=== PATIENT | female | born 1930 | race Caucasian/White ===

== ENCOUNTER 2017-07-10 20:51 | Inpatient (IN) ==
[2017-07-11] MEDS ORDERED: Acetaminophen 325 MG TABLET PO PRN (02:41)
[2017-07-11] MEDS ORDERED: Naloxone 0.4 MG/ML INJ IVP PRN (02:41)
--- NOTE | 2017-07-11 02:45 | Internal Med History&Physical ---
Date of Encounter: 07/11/17 Time of Encounter: 02:44 Internal Medicine - H&P: HPI Chief complaint: Anemia Admitted From: Direct Admit Plans for Post Hospital Care: Home History of present illness: Ms. Ulloa is a 86 year old female with history of hypothyroidism, hypertension, atrial fibrillation reportedly on Xarelto who presented from his found to have low hemoglobin of 5.2. The patient's previous hemoglobin was 12.4 back in May. The patient had presented to [facility] complaining of insomnia has been going on for a few days. She had no complaints of GI issues such as bleeding, abdominal pain, nausea, hematemesis, hematochezia. Upon further questioning the patient does state that she has had dark stools on and off over the last couple of months. She states that she is doing well and was actually out gardening yesterday. The patient, however, is not the best historian and I suspect the patient has some type of dementia. There is no family members at bedside at this hour. The patient tells me that she lives alone and her daughter will be here in the morning. When I asked if she takes any blood thinners she said she takes the one that starts with the an X and when I mentioned Xarelto she said "that one". She denies being on NSAIDs or aspirin. She is hemodynamically stable. She was started on 1 unit of PRBCs prior to coming here. Rest of laboratory workup showed d-dimer still elevated at 729. APTT at 41.2. No PT/INR. Per documentation the patient has had increased lower extremity swelling which improved with medications. Denies any fever, chills, nausea, vomiting, chest pain, shortness of breath, urinary symptoms, or neurological symptoms. Past Med Surg Social Fam HX - Past Medical History Medical history: arthritis, atrial fibrillation, CHF, dementia, hypertension Psychiatric history: anxiety, depression - Past Surgical History Surgical History: , hysterectomy, knee replacement, orthopedic, other, other - Social History Smoking Status: Never smoker Smokeless Tobacco Status: No Alcohol use: none Drug use: none Internal Medicine - H&P: Meds Carvedilol [Coreg] 25 mg PO BID 01/31/17 [History] HYDROcodone/Acet 5/325 mg [[place] 5-325 mg] 1 tab PO Q6H PRN 01/31/17 [History] Memantine [Namenda] 5 mg PO HS 01/31/17 [History] Nitroglycerin [Nitrostat] 0.4 mg SL Q5M PRN 01/31/17 [History] Olmesartan Medoxomil [Benicar] 40 mg PO DAILY 01/31/17 [History] Rosuvastatin Calcium [Crestor] 10 mg PO DAILY 01/31/17 [History] Sertraline [Zoloft] 12.5 mg PO DAILY 01/31/17 [History] hydrALAZINE [HydrALAZINE] 25 mg PO BID 01/31/17 [History] Calcium Carbonate [Tums] 1,000 mg PO TID tab.chew 02/04/17 [Rx] Docusate [Colace] 100 mg PO BID PRN capsule 02/04/17 [Rx] Enoxaparin [Lovenox] 30 mg SQ Q24H syringe 02/04/17 [Rx] Levothyroxine [Synthroid] 125 mcg PO DAILY@0630 tablet 02/04/17 [Rx] Valsartan [Diovan] 320 mg PO DAILY tablet 02/04/17 [Rx] 3 Allergy/AdvReac Type Severity Reaction Status Date / Time codeine Allergy Rash Verified 01/30/17 16:16 Opioids - Morphine Analogues Allergy Rash Verified 01/30/17 16:16 Sulfa (Sulfonamide Allergy Rash Verified 01/30/17 16:16 Antibiotics) All Systems PM: A 10-system review of systems was performed and is negative for pertinent findings except as documented above in the HPI. Review of systems: All systems reviewed are negative except for as mentioned above - Constitutional Vitals: Temp Pulse Resp BP Pulse Ox 98.5 F 61 18 158/76 96 07/11/17 01:14 07/11/17 01:14 07/11/17 01:14 07/11/17 01:14 07/11/17 01:14 Exam: GEN: NAD HEENT: AT, NC, No cyanosis, oral mucosa is moist, No JVD Lymphatics: No lymphadenoapthy Eyes: Extrocular muscles intact, anicteric CVS:RRR. S1, S2, No m/r/g RESP: CTAB ABD: Soft, NT, ND, +BS EXT: No edema, No rashes, 2+ DP NEURO: Nonfocal, CN II-XII intact, No focal motor or sensory deficits Psych: Cooperative, Not anxious or depressed - Assessment and plan (1) GI bleed Current Visit: Yes Status: Acute Assessment and plan: The patient describes dark stools for a couple months. She has no other symptoms. She was transfused 1 unit from [facility]. We will repeat labs now including a PT/INR and transfuse if hemoglobin is less than 7. We will make the patient nothing by mouth. GI is consulted already. Protonix drip. Patient is hemodynamically stable. Qualifiers: GI bleed type/associated pathology: melena Qualified Code(s): K92.1 - Melena (2) Anemia Current Visit: No Status: Acute Assessment and plan: Patient does not really have any symptoms of anemia. She has microcytic anemia. Reported melena. We will check iron studies and rest of plan is as above. Qualifiers: Anemia type: unspecified type Qualified Code(s): D64.9 - Anemia, unspecified (3) Elevated d-dimer Current Visit: Yes Status: Acute Assessment and plan: Reportedly the patient has lower extremity swelling. She tells me this is improved. She has mild lower ext edema. She has no respiratory symptoms. The patient is already on Xarelto. Likely elevated secondary to anemia. (4) Atrial fibrillation Current Visit: No Status: Chronic Assessment and plan: Patient is rate controlled. Reportedly on anticoagulation with Xarelto. We will hold that secondary to the suspected GI bleed. Qualifiers: Atrial fibrillation type: unspecified Qualified Code(s): I48.91 - Unspecified atrial fibrillation (5) HTN (hypertension) Current Visit: No Status: Chronic Assessment and plan: Resume home antihypertensives Qualifiers: Hypertension type: unspecified Qualified Code(s): I10 - Essential (primary ) hypertension (6) Hypothyroidism Current Visit: No Status: Chronic Assessment and plan: Resume home Synthroid medication once verified. Qualifiers: Hypothyroidism type: unspecified Qualified Code(s): E03.9 - Hypothyroidism , unspecified (7) DVT prophylaxis Current Visit: No Status: Acute Assessment and plan: SCDS - Time Spent With Patient Total time spent is greater than 50% in coordination of care (as documented) at patient's floor/unit and/or counseling patient:
[2017-07-11] MEDS ORDERED: Ondansetron 4 MG/2 ML VIAL IVP PRN (03:01)
[2017-07-11 03:47] LABS: Basophils % 0.7 %; Hemoglobin 6.4 g/dL (11.5-15.4); Immature Granulocytes % 0.3 % (0-4)
[2017-07-11 03:48] LABS: Eosinophils # 0.3 K/mcL (0.0-0.6); Eosinophils % 5.3 %; Hematocrit 22.6 % (35.3-44.9); Lymphocytes # 1.1 K/mcL (0.6-4.6); Lymphocytes % 18.8 %; Mean Corpuscular HGB Conc 28.3 g/dL (31.6-35.5); Mean Corpuscular Volume 74.1 fL (83.0-100.0); Mean Platelet Volume 12.6 fL (9.4-12.4); Monocytes # 0.7 K/mcL (0.0-1.3); Monocytes % 11.6 %; Neutrophils # 3.7 K/mcL (1.6-8.9); Platelet Count 191 K/mcL (140-400); Red Blood Count 3.05 M/mcL (3.82-4.97); Red Cell Distribution Width 18.4 % (11.5-14.5); Segmented Neutrophils % 63.3 %
[2017-07-11 03:53] LABS: INR 2.5
[2017-07-11 04:04] LABS: Platelet Estimate Normal (Normal)
[2017-07-11 04:05] LABS: Hypochromasia Present (Not Present)
[2017-07-11 04:07] LABS: Anisocytosis 1+ (Not Present)
[2017-07-11 04:14] LABS: % Iron Saturation 4 % (15-50); Ferritin 19 ng/ml (10-120); Iron 14 mcg/dL (50-170); Transferrin 282 mg/dL (203-362)
[2017-07-11 04:15] LABS: Calcium 8.5 mg/dL (8.6-10.3); Magnesium 2.3 mg/dL (1.6-2.6)
[2017-07-11] MEDS ORDERED: *HR* Phytonadione 5 MG TABLET PO ONE (04:17)
[2017-07-11 04:40] LABS: Vitamin B12 727 pg/mL (250-1100)
[2017-07-11 04:41] LABS: Folate > 22.3 ng/mL (3.0-16.0)
[2017-07-11] MEDS ORDERED: Iron Sucrose Complex 400 MG in 0.9 % Sodium Chloride 250 ML IVPB ONE (05:00)
[2017-07-11] MEDS ORDERED: Pantoprazole 40 MG VIAL IVP SCH (06:00)
[2017-07-11] MEDS: Pantoprazole 40 MG in 0.9 % Sodium Chloride Mini Bag 100 ML IVC SCH ×5 (06:21→22:02)
[2017-07-11] MEDS ORDERED: 0.9 % Sodium Chloride 500 ML ONE (11:20)
--- NOTE | 2017-07-11 12:51 | Gastroenterology Consult Note ---
Date of Encounter: 07/11/17 Time of Encounter: 11:00 - Assessment and plan (1) GI bleed Current Visit: Yes Status: Acute Assessment and plan: Patient with melena on and off since March now with severe anemia with a hemoglobin of 5.2. Patient hemoglobin was down to 6.9 in January and at that time she was transfused 2 unit of blood. Denies having any scope done in the past , currently is on xeralto also for atrial fib. Patient has received blood transfusion. currently she is refusing to have any scopes done. Talked to the patient in detail in the presence of her family including daughter, again she is not the interested in having the scope done at this point understanding the risks involved in not having the workup done such as missing a GI tract cancer. We will be happy to see her again if she changes her mind Qualifiers: GI bleed type/associated pathology: melena Qualified Code(s): K92.1 - Melena - Time Spent With Patient Total time spent is greater than 50% in coordination of care (as documented) at patient's floor/unit and/or counseling patient: GI History of Present Illness - Data of Consult Requesting Physician: Ham Collado MD - Consult Narrative Reason for consult: Anemia and melena History of present illness: Ms. Ulloa is a 86 year old female that was admitted because of severe anemia with hemoglobin of 5.2. Per patient and her daughter, the patient has not been feeling well since her hip surgery in January. After hip surgery she started having nausea vomiting after week and in March and April she was having black stool many times. Since then she is having black stool on and off. In the January her hemoglobin was 6.9 and she was then given a blood transfusion. In ER yesterdya was found to be anemic with a hemoglobin of 5.2 and has been transfused. Currently on the floor she denies any active complaints other than feeling fatigued and tired and shortness of breath. Patient has been on Xelato but other than that denies any use of alcohol or NSAID. Denies ever having any scope done in the past. Past Med Surg Social Fam HX - Past Medical History Medical history: arthritis, atrial fibrillation, CHF, dementia, hypertension Psychiatric history: anxiety, depression - Past Surgical History Surgical History: , hysterectomy, knee replacement, orthopedic, other, other - Social History Smoking Status: Never smoker Smokeless Tobacco Status: No Alcohol use: none Drug use: none Review of Systems: GI: as per [place] GENERAL: denies fever, does complain of generalized weakness EYES: denies yellow discoloration ENT: denies pain with swallowing or difficulty swallowing CARDIO: denies chest pain, palpitations RESP: Does complain of shortness of breath : denies change in color of urine NEURO: denies any weakness HEME: Denies any bruising MS: denies joint pain, joint swelling or back pain. DERM: denies rash or itching PSYCH: Denies history of anxiety or depression - Constitutional Vitals: Temp Pulse Resp BP Pulse Ox 97.6 F 63 16 176/81 98 07/11/17 12:02 07/11/17 12:02 07/11/17 12:02 07/11/17 12:02 07/11/17 12:02 CONSTITUTIONAL:~alert, no acute distress. Has oxygen by nasal cannula in place ~HEAD:~normocephalic.~EYES:~no jaundice.~NECK:~no obvious swelling.~HEART:~ Heart rate is controlled, .~LUNGS:~bilateral good air entry.~ABDOMEN:~non distended, soft, non tander, no masses pulpable, no organomegaly ,midline lower abdominal surgical scar.~RECTAL EXAM:~Deferred.~EXTREMITIES:~no clubbing, cyanosis or edema.~SKIN:~no stigmata of chronic liver disease.~NEUROLOGIC:~no obvious focal defect.~~~~Right hip area scar from recent surgery. General appearance: Present: cachectic, A&O X 0 Results - Labs CBC & Chem 7: 07/11/17 03:07 07/11/17 03:07 Labs: Last Result Calcium 8.5 mg/dL (8.6-10.3) L 07/11/17 03:07 Iron 14 mcg/dL (50-170) L 07/11/17 03:12 % Saturation 4 % (15-50) L 07/11/17 03:12 Transferrin 282 mg/dL (203-362) 07/11/17 03:12 Ferritin 19 ng/ml (10-120) 07/11/17 03:12 Vitamin B12 727 pg/mL (250-1100) 07/11/17 03:12 Folate > 22.3 ng/mL (3.0-16.0) H 07/11/17 03:12 Entire Visit Hgb 6.4 g/dL (11.5-15.4) L 07/11/17 03:07 Hct 22.6 % (35.3-44.9) L 07/11/17 03:07 PT 27.0 Seconds (9.4-12.1) H 07/11/17 03:07 Ferritin 19 ng/ml (10-120) 07/11/17 03:12 Folate > 22.3 ng/mL (3.0-16.0) H 07/11/17 03:12 - ABG ABG results: PT/INR, D-dimer PT 27.0 Seconds (9.4-12.1) H 07/11/17 03:07 Consult Discharge Plan - Plan Referrals: Rocael Pelletier MD [Primary Care Provider] -
--- NOTE | 2017-07-11 14:30 | Event Note ---
Date of Encounter: 07/11/17 Time of Encounter: 14:29 Patient evaluated earlier this morning. Recommended endoscopy per patient does not want it done today. She is willing to consider it on another day. Hemoglobin 6.4 this morning. More units of blood ordered. Hold Xarelto. Continue PPI.
[2017-07-11 18:04] LABS: Hematocrit 26.7 % (35.3-44.9); Hemoglobin 7.7 g/dL (11.5-15.4)
[2017-07-12] MEDS: *HR* LORazepam 0.5 MG TABLET PO PRN (01:21)
[2017-07-12] MEDS: Pantoprazole 40 MG in 0.9 % Sodium Chloride Mini Bag 100 ML IVC SCH ×3 (03:21→17:56)
[2017-07-12] MEDS: Sodium Ferric Gluconat/Sucrose 250 MG in 0.9 % Sodium Chloride 100 ML IVPB SCH (09:21)
[2017-07-12 10:33] LABS: Hematocrit 26.2 % (35.3-44.9); Hemoglobin 7.5 g/dL (11.5-15.4); Mean Corpuscular HGB Conc 28.6 g/dL (31.6-35.5); Mean Corpuscular Hemoglobin 21.9 pg (28.0-33.3); Mean Corpuscular Volume 76.4 fL (83.0-100.0); Mean Platelet Volume 11.5 fL (9.4-12.4); Platelet Count 188 K/mcL (140-400); Red Blood Count 3.43 M/mcL (3.82-4.97); Red Cell Distribution Width 18.4 % (11.5-14.5)
[2017-07-12] MEDS ORDERED: *HR* Propofol 200 MG/20 ML VIAL IVP ONE (11:30)
[2017-07-12] MEDS ORDERED: Lidocaine -MPF 2% 2 ML VIAL ONE (11:30)
--- NOTE | 2017-07-12 12:15 | Anesthesia Evaluation PreOp ---
Date of Encounter: 07/12/17 Time of Encounter: 12:14 - Past History Planned Operation: EGD Cardiac History: IA, HTN, Hyperlipidemia, Arrhythmia (Afib) Pulmonary History: Denies Any Significant HX OIL CHANGE TECHNICIAN History: Denies Any Significant HX Other Medical History: Bleeding (GI Bleeding, anemia) Alcohol Use: none Drug use: none Medications and Allergies Carvedilol [Coreg] 25 mg PO BID 01/31/17 [History] HYDROcodone/Acet 5/325 mg [[place] 5-325 mg] 1 tab PO Q6H PRN 01/31/17 [History] Memantine [Namenda] 5 mg PO HS 01/31/17 [History] Nitroglycerin [Nitrostat] 0.4 mg SL Q5M PRN 01/31/17 [History] Olmesartan Medoxomil [Benicar] 40 mg PO DAILY 01/31/17 [History] Rosuvastatin Calcium [Crestor] 10 mg PO DAILY 01/31/17 [History] Sertraline [Zoloft] 12.5 mg PO DAILY 01/31/17 [History] hydrALAZINE [HydrALAZINE] 25 mg PO BID 01/31/17 [History] Calcium Carbonate [Tums] 1,000 mg PO TID tab.chew 02/04/17 [Rx] Docusate [Colace] 100 mg PO BID PRN capsule 02/04/17 [Rx] Dexlansoprazole [Dexilant] 60 mg PO DAILY 07/11/17 [History] Furosemide [Lasix] 20 mg PO DAILY PRN 07/11/17 [History] LORazepam [Ativan] 0.5 mg PO TID PRN 07/11/17 [History] Levothyroxine Sodium [Levoxyl] 25 mcg PO DAILY 07/11/17 [History] Rivaroxaban [Xarelto] 20 mg PO DAILY 07/11/17 [History] 3 Allergy/AdvReac Type Severity Reaction Status Date / Time codeine Allergy Rash Verified 01/30/17 16:16 Opioids - Morphine Analogues Allergy Rash Verified 01/30/17 16:16 Sulfa (Sulfonamide Allergy Rash Verified 01/30/17 16:16 Antibiotics) - Meds/Allergy Pre-op Review Medications Reviewed: Yes Allergies Reviewed: Yes Anesthesia Results - Labs 07/12/17 10:21 07/11/17 03:07 Anesthesia Exam Vital Signs/O2 Sat/Glucose, Most Recent Temp Pulse Resp BP Pulse Ox 98.6 F 66 16 149/62 92 07/12/17 12:14 07/12/17 12:14 07/12/17 12:14 07/12/17 12:14 07/12/17 12:14 Blood Glucose* 93 Weight: 52 kg NPO (# of Hours): 8 - HEENT Mallampati: II Teeth: Edentulous Oral Opening: Greater than 3 - Cardiac Rhythm: Regular - Pulmonary Breath Sounds: bilateral Clear Anesthesia Assess/Plan ASA Score: 4 Modified [place] Scale for Level of Consciousness: Cooperative, oriented, and tranquil Anesthetic Plan: MAC Monitoring Plan: Standard Monitors Recovery Plan: Other
--- NOTE | 2017-07-12 12:41 | Anesthesia Evaluation Post Op ---
Date of Encounter: 07/12/17 Time of Encounter: 12:41 Notes: Patient's vital signs have been reviewed. Patient is stable postoperatively and has adequately recovered from anesthesia. Patient is determined to have stable airway patency and respiratory function including respiratory rate and oxygen saturation. Patient has a stable heart rate, blood pressure and adequate hydration. Patients mental status is acceptable. Patients temperature is appropriate. Pain and nausea are adequately controlled. - Discharge PostOp Status: Transfer Patient to floor
[2017-07-12] MEDS ORDERED: SODIUM CHLORIDE/NAHCO3/KCL/PEG 4,000 ML SOLN.RECON PO ONE (12:47)
--- NOTE | 2017-07-12 12:55 | Internal Med Progress Note ---
Date of Encounter: 07/12/17 Time of Encounter: 11:15 - Assessment and plan (1) GI bleed Current Visit: Yes Status: Acute Assessment and plan: Hemoglobin 7.5 today. Patient initially did not want to undergo upper GI endoscopy yesterday. This morning when I asked her she again did not want to undergo any procedure. However later on she told the nurse that she would undergo EGD. GI has been notified. Consent provided. Continue PPI. Moderate risk for complications. Continue to hold anticoagulation. Qualifiers: GI bleed type/associated pathology: melena Qualified Code(s): K92.1 - Melena (2) Anemia Current Visit: Yes Status: Acute Assessment and plan: Stable. Due to acute GI bleed. Hemoglobin 7.5 today. Qualifiers: Anemia type: unspecified type Qualified Code(s): D64.9 - Anemia, unspecified (3) HTN (hypertension) Current Visit: Yes Status: Chronic Assessment and plan: Uncontrolled. Continue carvedilol. We will also place patient on intravenous hydralazine as needed for systolic blood pressure greater than 160. Qualifiers: Hypertension type: unspecified Qualified Code(s): I10 - Essential (primary ) hypertension (4) Atrial fibrillation Current Visit: Yes Status: Chronic Assessment and plan: Rate controlled. Anticoagulation held due to GI bleed Qualifiers: Atrial fibrillation type: unspecified Qualified Code(s): I48.91 - Unspecified atrial fibrillation (5) Hypothyroidism Current Visit: Yes Status: Chronic Assessment and plan: Continue levothyroxine Qualifiers: Hypothyroidism type: unspecified Qualified Code(s): E03.9 - Hypothyroidism , unspecified (6) DVT prophylaxis Current Visit: Yes Status: Acute Assessment and plan: With SCDs - Time Spent With Patient Total time spent is greater than 50% in coordination of care (as documented) at patient's floor/unit and/or counseling patient: - Subjective Interval history: Patient is awake and alert. Doing well overall. Denies any new episodes of hematemesis or blood-tinged stools. No dizziness or lightheadedness. No chest pain - Constitutional Vitals: Temp Pulse Resp BP Pulse Ox 98.6 F 66 16 149/62 92 07/12/17 12:14 07/12/17 12:14 07/12/17 12:14 07/12/17 12:14 07/12/17 12:14 General appearance: Present: cooperative, A&O X 3, pleasant, no acute distress, answers questions appropriately - Respiratory Respiratory exam: Present: CTAB. Absent: accessory muscle use, rales, rhonchi, wheezes - Cardiovascular Cardiovascular exam: Present: RRR, +S1, +S2. Absent: diastolic murmur, gallop, rubs, systolic murmur - GI/Abdominal GI/Abdominal exam: Present: normal bowel sounds, soft, no peritoneal signs. Absent: distended, tenderness - Extremities Exam Extremities exam: Present: warm, radial pulses palpable and symmetrical. Absent : calf tenderness, cyanotic, pedal edema - Neurological Exam Neurological exam: Present: CN II-XII intact, oriented X3, no focal deficits. Absent: facial droop, speech deficit - Skin Skin exam: Present: dry, intact, pallor Internal Medicine: Result - Labs CBC & Chem 7: 07/12/17 10:21 07/11/17 03:07 Labs: Short CBC 07/11/17 07/12/17 Range/Units 17:29 10:21 WBC 6.2 (4.3-11.1) K/mcL Hgb 7.7 L 7.5 L (11.5-15.4) g/dL Hct 26.7 L 26.2 L (35.3-44.9) % Plt Count 188 (140-400) K/mcL - ABG Interpretation ABG results: PT/INR, D-dimer PT 27.0 Seconds (9.4-12.1) H 07/11/17 03:07 - VTE Documentation of Mechanical Device: Intermittent pneumatic compression device Consult Discharge Plan - Plan Referrals: Rocael Pelletier MD [Primary Care Provider] -
[2017-07-12] MEDS ORDERED: *HR* HYDROcodone/Acet 5/325 mg TABLET PO PRN (12:59)
[2017-07-12] MEDS ORDERED: Furosemide 20 MG TABLET PO PRN (12:59)
[2017-07-12 17:57] LABS: Hematocrit 26.6 % (35.3-44.9); Hemoglobin 7.7 g/dL (11.5-15.4)
[2017-07-12] MEDS ORDERED: Polyethylene Glycol 3350 255 GM POWDER PO ONE (18:00)
[2017-07-12] MEDS: hydrALAZINE 25 MG TABLET PO SCH (20:00)
[2017-07-13] MEDS: Pantoprazole 40 MG in 0.9 % Sodium Chloride Mini Bag 100 ML IVC SCH ×2 (00:06→03:30)
[2017-07-13 07:35] LABS: BUN/Creatinine Ratio 16 (6-26); Blood Urea Nitrogen 16 mg/dL (8-23); Calcium 8.5 mg/dL (8.6-10.3); Carbon Dioxide 21 mEq/L (23-29); Chloride 111 mEq/L (98-107); Glucose 86 mg/dL (70-105); Osmolality,Calculated 292 (280-300); Potassium 3.8 mEq/L (3.5-5.1); Sodium 141 mEq/L (136-145); eGFR For African Americans > 60 (> 60); eGFR For Non-African Americans 54 (> 60)
[2017-07-13 08:32] LABS: Hematocrit 27.9 % (35.3-44.9); Hemoglobin 7.9 g/dL (11.5-15.4); Immature Granulocytes % 0.3 % (0-4); Mean Corpuscular HGB Conc 28.3 g/dL (31.6-35.5); Mean Corpuscular Hemoglobin 21.7 pg (28.0-33.3); Mean Corpuscular Volume 76.6 fL (83.0-100.0); Red Blood Count 3.64 M/mcL (3.82-4.97); Red Cell Distribution Width 19.4 % (11.5-14.5)
[2017-07-13] MEDS: hydrALAZINE 25 MG TABLET PO SCH ×2 (08:33→19:51)
[2017-07-13 08:34] LABS: Basophils # 0.1 K/mcL (0.0-0.2); Basophils % 0.7 %; Eosinophils # 0.3 K/mcL (0.0-0.6); Eosinophils % 4.2 %; Lymphocytes # 0.9 K/mcL (0.6-4.6); Lymphocytes % 12.9 %; Mean Platelet Volume 13.4 fL (9.4-12.4); Monocytes # 0.7 K/mcL (0.0-1.3); Monocytes % 9.9 %; Neutrophils # 5.1 K/mcL (1.6-8.9); Nucleated Red Blood Cells 0.6 /100 WBC (0); Platelet Count 219 K/mcL (140-400)
[2017-07-13] MEDS: Sodium Ferric Gluconat/Sucrose 250 MG in 0.9 % Sodium Chloride 100 ML IVPB SCH (08:36)
[2017-07-13 09:21] LABS: Anisocytosis 1+ (Not Present)
[2017-07-13 09:22] LABS: Hypochromasia Present (Not Present); Platelet Estimate Normal (Normal); Polychromasia 1+ (Not Present)
[2017-07-13] MEDS: *HR* LORazepam 0.5 MG TABLET PO PRN (11:23)
--- NOTE | 2017-07-13 13:23 | Internal Med Progress Note ---
Date of Encounter: 07/13/17 Time of Encounter: 08:50 - Assessment and plan (1) GI bleed Current Visit: Yes Status: Acute Assessment and plan: Upper GI endoscopy negative for any acute abnormalities. Patient scheduled for colonoscopy later today. Currently taking bowel prep. Hemoglobin levels have remained stable. 7.9 today. Continue PPI. Continue to hold anticoagulation. Moderate risk for complications. Qualifiers: GI bleed type/associated pathology: melena Qualified Code(s): K92.1 - Melena (2) Anemia Current Visit: Yes Status: Acute Assessment and plan: Due to suspected GI bleed. Awaiting colonoscopy later today. Hemoglobin levels have remained stable. Continue IV iron supplementation Qualifiers: Anemia type: other cause Other causes of anemia: acute posthemorrhagic Qualified Code(s): D62 - Acute posthemorrhagic anemia (3) HTN (hypertension) Current Visit: Yes Status: Chronic Assessment and plan: Blood pressure remains elevated. Continue carvedilol and losartan. We will add amlodipine. Qualifiers: Hypertension type: unspecified Qualified Code(s): I10 - Essential (primary ) hypertension (4) Atrial fibrillation Current Visit: Yes Status: Chronic Assessment and plan: Rate controlled. Anticoagulation due to held due to GI bleed Qualifiers: Atrial fibrillation type: unspecified Qualified Code(s): I48.91 - Unspecified atrial fibrillation (5) Hypothyroidism Current Visit: Yes Status: Chronic Assessment and plan: Continue levothyroxine Qualifiers: Hypothyroidism type: unspecified Qualified Code(s): E03.9 - Hypothyroidism , unspecified (6) Congestive heart failure Current Visit: No Status: Chronic Assessment and plan: Patient reports past medical history of CHF. Is on Lasix. No acute exacerbation. Qualifiers: Heart failure type: unspecified Heart failure chronicity: chronic Qualified Code(s): I50.9 - Heart failure, unspecified (7) Protein-calorie malnutrition, moderate Current Visit: Yes Status: Chronic Assessment and plan: Nutrition following. (8) DVT prophylaxis Current Visit: Yes Status: Acute - Time Spent With Patient Total time spent is greater than 50% in coordination of care (as documented) at patient's floor/unit and/or counseling patient: - Subjective Interval history: Patient is lying in bed. Comfortable. Denies any new complaints at this time. No new episodes of hematemesis or melena. Underwent upper GI endoscopy yesterday. Tolerated procedure well. She is scheduled for colonoscopy later today. - Constitutional Vitals: Temp Pulse Resp BP Pulse Ox 98.1 F 77 19 156/73 96 07/13/17 07:00 07/13/17 11:44 07/13/17 11:44 07/13/17 11:44 07/13/17 11:44 General appearance: Present: cooperative, A&O X 3, pleasant, no acute distress, answers questions appropriately - Cardiovascular Cardiovascular exam: Present: RRR, +S1, +S2. Absent: diastolic murmur, gallop, rubs, systolic murmur - GI/Abdominal GI/Abdominal exam: Present: normal bowel sounds, soft, no peritoneal signs. Absent: distended, tenderness - Extremities Exam Extremities exam: Present: warm, radial pulses palpable and symmetrical. Absent : calf tenderness, cyanotic, pedal edema - Neurological Exam Neurological exam: Present: CN II-XII intact, oriented X3, no focal deficits. Absent: facial droop, speech deficit - Skin Skin exam: Present: dry, intact, pallor Internal Medicine: Result - Labs CBC & Chem 7: 07/13/17 06:24 07/13/17 06:24 Labs: Short CBC 07/12/17 07/13/17 Range/Units 17:46 06:24 WBC 7.1 (4.3-11.1) K/mcL Hgb 7.7 L 7.9 L (11.5-15.4) g/dL Hct 26.6 L 27.9 L (35.3-44.9) % Plt Count 219 (140-400) K/mcL Neutrophils # 5.1 (1.6-8.9) K/mcL BMP 07/13/17 06:24 Sodium 141 Potassium 3.8 Chloride 111 H Carbon Dioxide 21 L BUN 16 Creatinine 0.98 Glucose 86 Calcium 8.5 L - ABG Interpretation ABG results: PT/INR, D-dimer PT 27.0 Seconds (9.4-12.1) H 07/11/17 03:07 - VTE Documentation of Mechanical Device: Intermittent pneumatic compression device Consult Discharge Plan - Plan Referrals: Rocael Pelletier MD [Primary Care Provider] -
--- NOTE | 2017-07-13 18:10 | Gastroenterology Progress Note ---
Date of Encounter: 07/13/17 Time of Encounter: 17:00 - Assessment and plan (1) Anemia Current Visit: Yes Status: Acute Assessment and plan: Patient with anemia with low MCV. EGD was unremarkable plan is for colonoscopy tomorrow. Qualifiers: Anemia type: other cause Other causes of anemia: acute posthemorrhagic Qualified Code(s): D62 - Acute posthemorrhagic anemia - Time Spent With Patient Total time spent is greater than 50% in coordination of care (as documented) at patient's floor/unit and/or counseling patient: - Subjective Interval history: Patient is lying in bed. Comfortable. Denies any new complaints at this time. Underwent upper GI endoscopy on Thursday. Tolerated procedure well. She is scheduled for colonoscopy but was canceled because she does not took the whole prep - Constitutional Vitals: Temp Pulse Resp BP Pulse Ox 98.4 F 66 19 159/73 99 07/13/17 17:00 07/13/17 17:00 07/13/17 17:00 07/13/17 17:00 07/13/17 17:00 General appearance: Present: cachectic, A&O X 0, A&O X 3 Exam: Patient seen the bedside not in acute distress Results - Labs CBC & Chem 7: 07/13/17 06:24 07/13/17 06:24 Labs: Last Result Calcium 8.5 mg/dL (8.6-10.3) L 07/13/17 06:24 Iron 14 mcg/dL (50-170) L 07/11/17 03:12 % Saturation 4 % (15-50) L 07/11/17 03:12 Transferrin 282 mg/dL (203-362) 07/11/17 03:12 Ferritin 19 ng/ml (10-120) 07/11/17 03:12 Vitamin B12 727 pg/mL (250-1100) 07/11/17 03:12 Folate > 22.3 ng/mL (3.0-16.0) H 07/11/17 03:12 Entire Visit Hgb 7.9 g/dL (11.5-15.4) L 07/13/17 06:24 Hct 27.9 % (35.3-44.9) L 07/13/17 06:24 PT 27.0 Seconds (9.4-12.1) H 07/11/17 03:07 Ferritin 19 ng/ml (10-120) 07/11/17 03:12 Folate > 22.3 ng/mL (3.0-16.0) H 07/11/17 03:12 - ABG ABG results: PT/INR, D-dimer PT 27.0 Seconds (9.4-12.1) H 07/11/17 03:07 - VTE Documentation of Mechanical Device: Intermittent pneumatic compression device Consult Discharge Plan - Plan Referrals: Rocael Pelletier MD [Primary Care Provider] -
[2017-07-14] MEDS: Sodium Ferric Gluconat/Sucrose 250 MG in 0.9 % Sodium Chloride 100 ML IVPB SCH (09:15)
[2017-07-14] MEDS: hydrALAZINE 25 MG TABLET PO SCH ×3 (09:17→22:34)
[2017-07-14 09:29] LABS: Basophils % 0.4 %; Eosinophils # 0.2 K/mcL (0.0-0.6); Hematocrit 27.7 % (35.3-44.9); Hemoglobin 7.9 g/dL (11.5-15.4); Immature Granulocytes % 0.3 % (0-4); Lymphocytes # 0.9 K/mcL (0.6-4.6); Lymphocytes % 11.7 %; Mean Corpuscular HGB Conc 28.5 g/dL (31.6-35.5); Mean Corpuscular Hemoglobin 21.7 pg (28.0-33.3); Mean Corpuscular Volume 76.1 fL (83.0-100.0); Mean Platelet Volume 11.5 fL (9.4-12.4); Monocytes # 0.8 K/mcL (0.0-1.3); Monocytes % 9.9 %; Neutrophils # 5.8 K/mcL (1.6-8.9); Nucleated Red Blood Cells 0.4 /100 WBC (0); Platelet Count 210 K/mcL (140-400); Red Blood Count 3.64 M/mcL (3.82-4.97); Red Cell Distribution Width 20.7 % (11.5-14.5); Segmented Neutrophils % 75.7 %
--- NOTE | 2017-07-14 14:03 | Anesthesia Evaluation PreOp ---
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 MEDICAL CODING SPECIALIST History: Denies Any Significant HX Other Medical History: Thyroid (hypo), Other (GI blled with anemia) Anesthesia History: No Prior Anesthetic Complications, Past Anesthesia (EGD, CHERYL , TKA, C/S) Alcohol Use: none Drug use: none Medications and Allergies Carvedilol [Coreg] 25 mg PO BID 01/31/17 [History] HYDROcodone/Acet 5/325 mg [[place] 5-325 mg] 1 tab PO Q6H PRN 01/31/17 [History] Memantine [Namenda] 5 mg PO HS 01/31/17 [History] Nitroglycerin [Nitrostat] 0.4 mg SL Q5M PRN 01/31/17 [History] Olmesartan Medoxomil [Benicar] 40 mg PO DAILY 01/31/17 [History] Rosuvastatin Calcium [Crestor] 10 mg PO DAILY 01/31/17 [History] Sertraline [Zoloft] 12.5 mg PO DAILY 01/31/17 [History] hydrALAZINE [HydrALAZINE] 25 mg PO BID 01/31/17 [History] Calcium Carbonate [Tums] 1,000 mg PO TID tab.chew 02/04/17 [Rx] Docusate [Colace] 100 mg PO BID PRN capsule 02/04/17 [Rx] Dexlansoprazole [Dexilant] 60 mg PO DAILY 07/11/17 [History] Furosemide [Lasix] 20 mg PO DAILY PRN 07/11/17 [History] LORazepam [Ativan] 0.5 mg PO TID PRN 07/11/17 [History] Levothyroxine Sodium [Levoxyl] 25 mcg PO DAILY 07/11/17 [History] Rivaroxaban [Xarelto] 20 mg PO DAILY 07/11/17 [History] 3 Allergy/AdvReac Type Severity Reaction Status Date / Time codeine Allergy Rash Verified 01/30/17 16:16 Opioids - Morphine Analogues Allergy Rash Verified 01/30/17 16:16 Sulfa (Sulfonamide Allergy Rash Verified 01/30/17 16:16 Antibiotics) - Meds/Allergy Pre-op Review Medications Reviewed: Yes Allergies Reviewed: Yes Beta Blockers on Current Med List: Yes If Beta Blockers taken, Date/Time (Last Dose taken): today 916 Anesthesia Results - Labs 07/14/17 09:07 07/13/17 06:24 Anesthesia Exam Selected Entries 07/14/17 11:32 07/14/17 13:52 Temperature 97.6 F Pulse Rate 67 Respiratory Rate 16 Blood Pressure 171/66 O2 Sat by Pulse Oximetry 96 Oxygen Flow Rate (LPM) 1.5 Weight: 50kg NPO (# of Hours): 8 - HEENT Pupil (Motor): EOMI Mallampati: III Teeth: Edentulous Oral Opening: Greater than 3 - CERTIFIED MEDICAL CODING SPECIALIST LOC: Oriented CERTIFIED MEDICAL CODING SPECIALIST Motor: Normal RUE, Normal LUE, Normal RLE, Normal LLE, Normal Face CERTIFIED MEDICAL CODING SPECIALIST Sensory: Normal: RUE, LUE, RLE, LLE, Face - Cardiac Rhythm: Irregular Murmur: None - Pulmonary Breath Sounds: bilateral Clear Respiratory Effort: Symmetrical Anesthesia Assess/Plan ASA Score: 3 Modified Arron Scale for Level of Consciousness: Cooperative, oriented, and tranquil Anesthetic Plan: MAC Monitoring Plan: Standard Monitors Recovery Plan: Other (agrees to MAC)
[2017-07-14] MEDS ORDERED: Propofol 500 MG/50 ML INFUS..BTL ONE (14:19)
--- NOTE | 2017-07-14 21:56 | Internal Med Progress Note ---
Date of Encounter: 07/14/17 Time of Encounter: 10:07 - Assessment and plan (1) Anemia Current Visit: Yes Status: Acute Assessment and plan: Due to suspected GI bleed. Awaiting colonoscopy later today. Hemoglobin levels have remained stable. Continue IVF and IV iron supplementation. Transfuse for hemoglobin < 7.0. Recheck CBC in AM. Qualifiers: Anemia type: other cause Other causes of anemia: acute posthemorrhagic Qualified Code(s): D62 - Acute posthemorrhagic anemia (2) GI bleed Current Visit: Yes Status: Acute Assessment and plan: Upper GI endoscopy negative for any acute abnormalities. Awaiting colonoscopy later today. Hemoglobin levels have remained stable. Continue IVF and IV iron supplementation. Continue PPI. Continue to hold anticoagulation. Transfuse for hemoglobin < 7.0. Recheck CBC in AM. Qualifiers: GI bleed type/associated pathology: melena Qualified Code(s): K92.1 - Melena (3) HTN (hypertension) Current Visit: Yes Status: Chronic Assessment and plan: Continue home medications. Qualifiers: Hypertension type: unspecified Qualified Code(s): I10 - Essential (primary ) hypertension (4) Atrial fibrillation Current Visit: Yes Status: Chronic Assessment and plan: Rate controlled. Anticoagulation held due to GI bleed. Continue other home medications. Continue telemetry. Qualifiers: Atrial fibrillation type: unspecified Qualified Code(s): I48.91 - Unspecified atrial fibrillation (5) Hypothyroidism Current Visit: Yes Status: Chronic Assessment and plan: Continue home medications. Qualifiers: Hypothyroidism type: unspecified Qualified Code(s): E03.9 - Hypothyroidism , unspecified (6) Congestive heart failure Current Visit: Yes Status: Chronic Assessment and plan: Continue home medications. Qualifiers: Heart failure type: unspecified Heart failure chronicity: chronic Qualified Code(s): I50.9 - Heart failure, unspecified (7) Protein-calorie malnutrition, moderate Current Visit: Yes Status: Chronic Assessment and plan: Nutrition following. (8) DVT prophylaxis Current Visit: Yes Status: Acute Assessment and plan: Holding anticoagulation due to acute anemia and suspected GI bleed. Continue SCDs. - Time Spent With Patient Total time spent is greater than 50% in coordination of care (as documented) at patient's floor/unit and/or counseling patient: less than 15 minutes - Subjective Interval history: Patient had no acute events overnight. She is feeling good today and wants to go home after pending colonoscopy. She denies fever, chills, chest pain, SOB, bleeding, nausea, vomiting, or abdominal pain. She has no complaints at this time. - Constitutional Vitals: Temp Pulse Resp BP Pulse Ox 97.6 F 66 16 126/54 95 07/14/17 19:00 07/14/17 19:00 07/14/17 19:00 07/14/17 19:00 07/14/17 19:00 General appearance: Present: cooperative, A&O X 3, pleasant, no acute distress, answers questions appropriately - Respiratory Respiratory exam: Present: CTAB. Absent: accessory muscle use, rales, rhonchi, wheezes Additional comments: Normal WOB - Cardiovascular Cardiovascular exam: Present: RRR, +S1, +S2. Absent: diastolic murmur, gallop, rubs, systolic murmur Additional comments: No BLE edema - GI/Abdominal GI/Abdominal exam: Present: normal bowel sounds, soft. Absent: distended, hepatomegaly, mass, splenomegaly, tenderness - Psychiatric Psychiatric exam: Present: normal affect, normal mood. Absent: agitated, anxious, depressed - Skin Skin exam: Present: dry, intact, warm. Absent: cyanosis, rash Internal Medicine: Result - Labs CBC & Chem 7: 07/14/17 09:07 07/13/17 06:24 Labs: Short CBC 07/14/17 Range/Units 09:07 WBC 7.7 (4.3-11.1) K/mcL Hgb 7.9 L (11.5-15.4) g/dL Hct 27.7 L (35.3-44.9) % Plt Count 210 (140-400) K/mcL Neutrophils # 5.8 (1.6-8.9) K/mcL - ABG Interpretation ABG results: PT/INR, D-dimer PT 27.0 Seconds (9.4-12.1) H 07/11/17 03:07 - VTE Reasons for not Prescribing Prophylaxis: Medical contraindication (Acute Anemia and Suspected GI Bleed) Documentation of Mechanical Device: Intermittent pneumatic compression device Consult Discharge Plan - Plan Referrals: Rocael Pelletier MD [Primary Care Provider] -
[2017-07-15 06:11] LABS: Basophils % 0.2 %; Eosinophils # 0.2 K/mcL (0.0-0.6); Eosinophils % 1.9 %; Hematocrit 25.6 % (35.3-44.9); Hemoglobin 7.5 g/dL (11.5-15.4); Immature Granulocytes % 0.3 % (0-4); Lymphocytes # 0.7 K/mcL (0.6-4.6); Lymphocytes % 8.2 %; Mean Corpuscular HGB Conc 29.3 g/dL (31.6-35.5); Mean Corpuscular Hemoglobin 22.9 pg (28.0-33.3); Mean Platelet Volume 11.2 fL (9.4-12.4); Monocytes # 0.9 K/mcL (0.0-1.3); Monocytes % 9.7 %; Neutrophils # 7.2 K/mcL (1.6-8.9); Nucleated Red Blood Cells 0.3 /100 WBC (0); Platelet Count 185 K/mcL (140-400); Red Blood Count 3.28 M/mcL (3.82-4.97); Red Cell Distribution Width 21.3 % (11.5-14.5); Segmented Neutrophils % 79.7 %
[2017-07-15 06:32] LABS: BUN/Creatinine Ratio 16 (6-26); Blood Urea Nitrogen 15 mg/dL (8-23); Calcium 8.3 mg/dL (8.6-10.3); Carbon Dioxide 22 mEq/L (23-29); Chloride 113 mEq/L (98-107); Glucose 100 mg/dL (70-105); Osmolality,Calculated 291 (280-300); Potassium 3.6 mEq/L (3.5-5.1); Sodium 140 mEq/L (136-145); eGFR For African Americans > 60 (> 60); eGFR For Non-African Americans 55 (> 60)
[2017-07-15] MEDS ORDERED: 0.9 % Sodium Chloride 1,000 ML IVC SCH (08:00)
[2017-07-15] MEDS: hydrALAZINE 25 MG TABLET PO SCH ×2 (08:27→21:35)
[2017-07-15] MEDS ORDERED: Isovue-370 500 ML INFUS..BTL IV ONE (09:00)
[2017-07-15] MEDS ORDERED: Furosemide 40 MG/4 ML VIAL IVP STA (11:33)
[2017-07-15 11:35] LABS: Activated Partial Thrombo Time 30.9 Seconds (26.0-36.0)
[2017-07-15 11:41] LABS: INR 1.2; Prothrombin Time 13.2 Seconds (9.4-12.1)
[2017-07-15] MEDS ORDERED: Ipratropium/Albuterol Neb 3 ML IH STA (11:47)
[2017-07-15] MEDS ORDERED: Ipratropium/Albuterol Neb 3 ML IH PRN (11:48)
--- NOTE | 2017-07-15 20:10 | Internal Med Progress Note ---
Date of Encounter: 07/15/17 Time of Encounter: 12:07 - Assessment and plan (1) Anemia Current Visit: Yes Status: Acute Assessment and plan: Due to suspected GI bleed. GI consulted; appreciate input. EGD unremarkable. Colonoscopy yesterday showed fungating, infiltrative, and ulcerated non- obstructing large mass at splenic flexture, likely malignancy, and multiple polyps. Biopsies pending pathology. Patient not interested in aggressive workup and treatment of likely cancer. GI ordered CT chest, which showed large bilateral pleural effusions. Will await GI recommendations on further workup of colon masses. Hemoglobin levels have remained stable. Discontinue IVF due to pleural effusions as per below. Continue IV iron supplementation. Transfuse for hemoglobin < 7.0. Recheck CBC in AM. Qualifiers: Anemia type: other cause Other causes of anemia: acute posthemorrhagic Qualified Code(s): D62 - Acute posthemorrhagic anemia (2) GI bleed Current Visit: Yes Status: Resolved Assessment and plan: Management of anemia as per above. Continue PPI. Continue to hold anticoagulation. Transfuse for hemoglobin < 7.0. Recheck CBC in AM. Qualifiers: GI bleed type/associated pathology: melena Qualified Code(s): K92.1 - Melena (3) Pleural effusion, bilateral Current Visit: Yes Status: Acute Assessment and plan: Possibly secondary to metastatic disease to lungs, or worsening of CHF. Patient adamant about no thoracentesis. Will diurese gently with lasix 40 mg IV QD. Discontinue IVF. Start incentive spirometry. Start duonebs PRN. Continue supplemental oxygen. SOB has been a subacute issues, so will try to qualify for home supplemental oxygen. (4) HTN (hypertension) Current Visit: Yes Status: Chronic Assessment and plan: Continue home medications. Qualifiers: Hypertension type: unspecified Qualified Code(s): I10 - Essential (primary ) hypertension (5) Atrial fibrillation Current Visit: Yes Status: Chronic Assessment and plan: Rate controlled. Anticoagulation held due to GI bleed. Continue other home medications. Continue telemetry. Qualifiers: Atrial fibrillation type: unspecified Qualified Code(s): I48.91 - Unspecified atrial fibrillation (6) Hypothyroidism Current Visit: Yes Status: Chronic Assessment and plan: Continue home medications. Qualifiers: Hypothyroidism type: unspecified Qualified Code(s): E03.9 - Hypothyroidism , unspecified (7) Congestive heart failure Current Visit: Yes Status: Chronic Assessment and plan: Continue home medications. Qualifiers: Heart failure type: unspecified Heart failure chronicity: chronic Qualified Code(s): I50.9 - Heart failure, unspecified (8) Protein-calorie malnutrition, moderate Current Visit: Yes Status: Chronic Assessment and plan: Nutrition following. (9) DVT prophylaxis Current Visit: Yes Status: Acute Assessment and plan: Holding anticoagulation due to acute anemia and suspected GI bleed. Continue SCDs. - Time Spent With Patient Total time spent is greater than 50% in coordination of care (as documented) at patient's floor/unit and/or counseling patient: less than 15 minutes - Subjective Interval history: Patient had no acute events overnight. She is feeling good today and wants to go home after pending colonoscopy. We discussed options for further workup of possible malignancy, and she states that she does not want any aggressive interventions at this time. CT chest showed large bilateral pleural effusions. Patient is not interested in thoracentesis. She states that SOB is at her baseline. She does not wear supplemental oxygen at home. She denies fever, chills, chest pain, bleeding, nausea, vomiting, or abdominal pain. She has no complaints at this time. - Constitutional Vitals: Temp Pulse Resp BP Pulse Ox 97.6 F 69 20 131/66 93 07/15/17 15:59 07/15/17 15:59 07/15/17 15:59 07/15/17 15:59 07/15/17 17:30 General appearance: Present: cooperative, A&O X 3, pleasant, no acute distress, answers questions appropriately - Respiratory Respiratory exam: Present: CTAB. Absent: accessory muscle use, rales, rhonchi, wheezes Additional comments: Normal WOB - Cardiovascular Cardiovascular exam: Present: RRR, +S1, +S2. Absent: diastolic murmur, gallop, rubs, systolic murmur - GI/Abdominal GI/Abdominal exam: Present: normal bowel sounds, soft. Absent: distended, hepatomegaly, mass, splenomegaly, tenderness - Psychiatric Psychiatric exam: Present: normal affect, normal mood. Absent: agitated, anxious, depressed - Skin Skin exam: Present: dry, intact, warm. Absent: cyanosis, rash Internal Medicine: Result - Labs CBC & Chem 7: 07/15/17 05:52 07/15/17 05:52 Labs: Short CBC 07/15/17 Range/Units 05:52 WBC 9.1 (4.3-11.1) K/mcL Hgb 7.5 L (11.5-15.4) g/dL Hct 25.6 L (35.3-44.9) % Plt Count 185 (140-400) K/mcL Neutrophils # 7.2 (1.6-8.9) K/mcL BMP 07/15/17 05:52 Sodium 140 Potassium 3.6 Chloride 113 H Carbon Dioxide 22 L BUN 15 Creatinine 0.96 Glucose 100 Calcium 8.3 L - ABG Interpretation ABG results: PT/INR, D-dimer PT 13.2 Seconds (9.4-12.1) H D 07/15/17 10:54 - Impressions Impressions Abdomen/Pelvis CT 07/15/17 09:00 IMPRESSION: 1. Within the chest, the patient has large bilateral pleural effusions with compressive atelectasis of the lower lobes, cardiomegaly and coronary artery calcification. 2. Within the abdomen, there is wall thickening and luminal narrowing in the proximal descending colon just below the splenic flexure. On coronal reconstructions, there is question of an apple core type appearance. Also noted is thickening of the ileocecal valve and small diameter of the terminal ileum. Patient has significant sigmoid diverticulosis without evidence of diverticulitis. Sigmoid is decompressed limiting assessment. 3. Small to moderate pelvic fluid. 4. Subcutaneous haziness with anasarca type appearance. RECOMMENDATIONS: Consider colonoscopy or barium enema as appropriate. D/ / 07/15/2017 11:00:54 Dee Dee Zhou MD / Denae Mortensen Interpreting Provider: Dee Dee Zhou MD - VTE Reasons for not Prescribing Prophylaxis: Medical contraindication (Acute Anemia and Suspected GI Bleed) Documentation of Mechanical Device: Intermittent pneumatic compression device Consult Discharge Plan - Plan Instructions: Heart Failure (DC), Atrial Fibrillation (DC), Hypothyroidism (DC) , Using Oxygen at Home (DC), Using Oxygen at Home (GEN), Pleural Effusion (DC), Pleural Effusion (GEN), Chronic Hypertension (DC), Anemia (GEN) Referrals: Rocael Pelletier MD [Primary Care Provider] -
[2017-07-16 06:06] LABS: Basophils % 0.2 %; Eosinophils # 0.3 K/mcL (0.0-0.6); Eosinophils % 3.2 %; Hematocrit 25.9 % (35.3-44.9); Hemoglobin 7.5 g/dL (11.5-15.4); Immature Granulocytes % 0.9 % (0-4); Immature Platelets 10.1 % (1.1-6.1); Lymphocytes # 0.9 K/mcL (0.6-4.6); Lymphocytes % 10.8 %; Mean Corpuscular Hemoglobin 22.3 pg (28.0-33.3); Mean Corpuscular Volume 76.9 fL (83.0-100.0); Platelet Count 182 K/mcL (140-400); Red Blood Count 3.37 M/mcL (3.82-4.97); Red Cell Distribution Width 22.2 % (11.5-14.5); Segmented Neutrophils % 73.9 %
[2017-07-16 06:16] LABS: BUN/Creatinine Ratio 23 (6-26); Blood Urea Nitrogen 20 mg/dL (8-23); Calcium 8.4 mg/dL (8.6-10.3); Carbon Dioxide 24 mEq/L (23-29); Chloride 110 mEq/L (98-107); Glucose 110 mg/dL (70-105); Osmolality,Calculated 293 (280-300); Potassium 3.3 mEq/L (3.5-5.1); Sodium 140 mEq/L (136-145); eGFR For African Americans > 60 (> 60); eGFR For Non-African Americans > 60 (> 60)
[2017-07-16] MEDS ORDERED: Levothyroxine 25 MCG TABLET PO SCH (06:30)
[2017-07-16 06:49] LABS: Neutrophils # 6.4 K/mcL (1.6-8.9)
[2017-07-16 07:04] LABS: Anisocytosis 2+ (Not Present); Hypochromasia Present (Not Present); Platelet Estimate Normal (Normal); Poikilocytosis 1+ (Not Present)
[2017-07-16 07:28] VITALS: BP 147/75
[2017-07-16] MEDS: hydrALAZINE 25 MG TABLET PO SCH (09:49)
--- NOTE | 2017-07-16 15:44 | Discharge Summary ---
- NOTES TO OUTPATIENT PROVIDER Notes to Outpatient Provider: Follow up with PCP in 2-3 days after discharge. Recheck BMP at that time (hypokalemia). Adjust lasix dose as needed for bilateral pleural effusion/chronic CHF. Recheck CBC at that time (acute blood loss anemia/GI bleed, now restarted on home anticoagulation). Follow up on colonoscopy pathology results. Date of Encounter: 07/16/17 Time of Encounter: 10:07 - Discharge Diagnosis (1) Anemia Priority: Primary Status: Acute Qualifiers: Anemia type: other cause Other causes of anemia: acute posthemorrhagic Qualified Code(s): D62 - Acute posthemorrhagic anemia (2) GI bleed Priority: Secondary Status: Resolved Qualifiers: GI bleed type/associated pathology: melena Qualified Code(s): K92.1 - Melena (3) Pleural effusion, bilateral Priority: Secondary Status: Acute (4) HTN (hypertension) Priority: Secondary Status: Chronic Qualifiers: Hypertension type: unspecified Qualified Code(s): I10 - Essential (primary ) hypertension (5) Atrial fibrillation Priority: Secondary Status: Chronic Qualifiers: Atrial fibrillation type: unspecified Qualified Code(s): I48.91 - Unspecified atrial fibrillation (6) Hypothyroidism Priority: Secondary Status: Chronic Qualifiers: Hypothyroidism type: unspecified Qualified Code(s): E03.9 - Hypothyroidism , unspecified (7) Congestive heart failure Priority: Secondary Status: Chronic Qualifiers: Heart failure type: unspecified Heart failure chronicity: chronic Qualified Code(s): I50.9 - Heart failure, unspecified (8) Protein-calorie malnutrition, moderate Priority: Secondary Status: Chronic (9) DVT prophylaxis Priority: Secondary Status: Acute Hospital course: Ms. Ulloa is a 86 year old female admitted for acute blood loss anemia likely secondary to GI bleed. Patient was admitted to general medical floor with telemetry. She received 1 unit PRBC at OSH prior to admission here. She was started on protonix drip, than transitioned to oral PPI. Serial H/H was monitored. Hemoglobin remained in 7.5-7.9 range throughout whole admission. GI was consulted. She had EGD which was completely normal. She had colonoscopy the next day, and it showed a fungating, infiltrative, and ulcerated non-obstructing large mass at the splenic flexure, concerning for malignancy, and multiple polyps. Pathology is pending, and PCP can follow up on these results. Patient is not interested in aggressive cancer workup and treatment at this time. GI states that there is nothing further to do from their end. She can get oncology referral from PCP if she changes her mind. CT abdomen was obtained by GI, and showed large bilateral pleural effusions. Patient states that she has a subacute history of worsening SOB after further discussion. She is adamant about not getting thoracentesis, but was agreeable to medical management. She was started on lasix 40 mg IV QD. She had good urine output and states SOB improved somewhat. She will be discharged with 7 days of lasix 40 mg PO QD. She was started on incentive spirometer and duonebs. Her potassium was repleted today due to mild hypokalemia of 3.3, likely secondary to diuresis. She has been qualified for home supplemental oxygen and home nebulizer with duonebs. She will follow up with PCP in 2-3 days after discharge. A repeat BMP can be obtained at that time. Repeat CBC can also be obtained at that time to ensure normal H/H. She was restarted on her home anticoagulation on day of discharge. Patient has met maximum benefit of this hospitalization and will be discharged home with home health in stable condition. Discharge discussed with: patient, family, nurse, social work, other (Pharmacist ) - Time Spent with Patient Total time spent providing and/or coordinating discharge services: Greater than 30 minutes - Discharge Medications Prescriptions: Ipratropium/Albuterol Neb [Duoneb] 3 ml IH Q6HR PRN 7 Days #28 vial.neb PRN Reason: Shortness Of Breath Furosemide [Lasix] 40 mg PO DAILY 7 Days #7 tablet Home Medications: Carvedilol [Coreg] 25 mg PO BID 01/31/17 [History] HYDROcodone/Acet 5/325 mg [[place] 5-325 mg] 1 tab PO Q6H PRN 01/31/17 [History] Memantine [Namenda] 5 mg PO HS 01/31/17 [History] Nitroglycerin [Nitrostat] 0.4 mg SL Q5M PRN 01/31/17 [History] Olmesartan Medoxomil [Benicar] 40 mg PO DAILY 01/31/17 [History] Rosuvastatin Calcium [Crestor] 10 mg PO DAILY 01/31/17 [History] Sertraline [Zoloft] 12.5 mg PO DAILY 01/31/17 [History] hydrALAZINE [HydrALAZINE] 25 mg PO BID 01/31/17 [History] Calcium Carbonate [Tums] 1,000 mg PO TID tab.chew 02/04/17 [Rx] Docusate [Colace] 100 mg PO BID PRN capsule 02/04/17 [Rx] Dexlansoprazole [Dexilant] 60 mg PO DAILY 07/11/17 [History] LORazepam [Ativan] 0.5 mg PO TID PRN 07/11/17 [History] Levothyroxine Sodium [Levoxyl] 25 mcg PO DAILY 07/11/17 [History] Rivaroxaban [Xarelto] 20 mg PO DAILY 07/11/17 [History] Furosemide [Lasix] 40 mg PO DAILY 7 Days #7 tablet 07/16/17 [Rx] Ipratropium/Albuterol Neb [Duoneb] 3 ml IH Q6HR PRN 7 Days #28 vial.neb [Rx] Allergies/Adverse Reactions: 3 Allergy/AdvReac Type Severity Reaction Status Date / Time codeine Allergy Rash Verified 01/30/17 16:16 Opioids - Morphine Analogues Allergy Rash Verified 01/30/17 16:16 Sulfa (Sulfonamide Allergy Rash Verified 01/30/17 16:16 Antibiotics) Date of admission: 07/11/17 02:41 Primary care physician: Rocael Pelletier MD Consults: 07/11/17 03:01 Consult to Gastroenterology [CONS] Routine Consulting Provider: Gastroenterology Yeni Reason for Consult: Anemia, Gi bleed, melena Call Completed: Yes Discharging clinician: Darvin Ferguson Anticipated date of discharge: 07/16/17 - Constitutional Vitals: Temp Pulse Resp BP Pulse Ox 98.4 F 81 18 147/75 96 07/16/17 07:26 07/16/17 07:26 07/16/17 07:26 07/16/17 07:26 07/16/17 07:26 General appearance: Present: cooperative, A&O X 3, pleasant, no acute distress, answers questions appropriately - Respiratory Respiratory exam: Present: CTAB. Absent: accessory muscle use, rales, rhonchi, wheezes Additional comments: Normal WOB - Cardiovascular Cardiovascular exam: Present: RRR, +S1, +S2. Absent: diastolic murmur, gallop, rubs, systolic murmur Additional comments: No BLE edema - GI/Abdominal GI/Abdominal exam: Present: normal bowel sounds, soft. Absent: distended, hepatomegaly, mass, splenomegaly, tenderness - Psychiatric Psychiatric exam: Present: normal affect, normal mood. Absent: agitated, anxious, depressed - Skin Skin exam: Present: dry, intact, warm. Absent: cyanosis, rash - Patient Status Disposition: Home Health Service Condition: Fair Overall status at discharge: patient is progressing back to baseline - Discharge Instructions Instructions: Heart Failure (DC), Atrial Fibrillation (DC), Hypothyroidism (DC) , Using Oxygen at Home (DC), Using Oxygen at Home (GEN), Pleural Effusion (DC), Pleural Effusion (GEN), Chronic Hypertension (DC), Anemia (GEN) Follow Up With: Rocael Pelletier MD [Primary Care Provider] - Doris Palomino MD [Partnered Physician] - Additional Instructions: Follow up with PCP in 2-3 days after discharge. Recheck BMP at that time ( hypokalemia). Adjust lasix dose as needed for bilateral pleural effusion/ chronic CHF. Recheck CBC at that time (acute blood loss anemia/GI bleed, now restarted on home anticoagulation). Follow up on colonoscopy pathology results. - Diet and Activity Activity: as per physical therapy, wear oxygen at all times Diet: low fat, low cholesterol, low salt diet, other (Cardiac Diet, Fluid Restriction to 2L/day) - VTE Reasons for not Prescribing Prophylaxis: Medical contraindication (Acute Anemia and Suspected GI Bleed) Documentation of Mechanical Device: Intermittent pneumatic compression device
--- NOTE | 2017-07-16 16:11 | Physician Discharge Referral ---
Home Health/Hosp Referral Info Transfer to: Home Health Provider in Charge Post Discharge: PCP - Diagnosis (1) Anemia Priority: Primary Status: Acute (2) GI bleed Priority: Secondary Status: Resolved (3) Pleural effusion, bilateral Priority: Secondary Status: Acute (4) HTN (hypertension) Priority: Secondary Status: Chronic (5) Atrial fibrillation Priority: Secondary Status: Chronic (6) Hypothyroidism Priority: Secondary Status: Chronic (7) Congestive heart failure Priority: Secondary Status: Chronic (8) Protein-calorie malnutrition, moderate Priority: Secondary Status: Chronic (9) DVT prophylaxis Priority: Secondary Status: Acute - Respiratory Orders Oxygen / L per min (2L NC Continuous) Smoking Cessation: Smoking cessation has been advised. For more information, call the [place] [employer] Tobacco Quit Line at 1-379-ZRUC-NOW. - Diet/Nutrition Diet/Nutrition Orders: No Added Salt (SUSANA), Cardiac Diet/Nutrition: List: Fluid restriction to 2L/day - Activity Activity: List: Per physical therapy - Services Needed Following services are medically necessary services: Nursing, Home Health Aide, Physical Therapy, Occupational Therapy Other Treatments: Duonebs 3 ml inhaled Q6H PRN SOB - Transfer Medications Prescriptions: Ipratropium/Albuterol Neb [Duoneb] 3 ml IH Q6HR PRN 7 Days #28 vial.neb PRN Reason: Shortness Of Breath Furosemide [Lasix] 40 mg PO DAILY 7 Days #7 tablet Home Medications: Carvedilol [Coreg] 25 mg PO BID 01/31/17 [History] HYDROcodone/Acet 5/325 mg [[place] 5-325 mg] 1 tab PO Q6H PRN 01/31/17 [History] Memantine [Namenda] 5 mg PO HS 01/31/17 [History] Nitroglycerin [Nitrostat] 0.4 mg SL Q5M PRN 01/31/17 [History] Olmesartan Medoxomil [Benicar] 40 mg PO DAILY 01/31/17 [History] Rosuvastatin Calcium [Crestor] 10 mg PO DAILY 01/31/17 [History] Sertraline [Zoloft] 12.5 mg PO DAILY 01/31/17 [History] hydrALAZINE [HydrALAZINE] 25 mg PO BID 01/31/17 [History] Calcium Carbonate [Tums] 1,000 mg PO TID tab.chew 02/04/17 [Rx] Docusate [Colace] 100 mg PO BID PRN capsule 02/04/17 [Rx] Dexlansoprazole [Dexilant] 60 mg PO DAILY 07/11/17 [History] LORazepam [Ativan] 0.5 mg PO TID PRN 07/11/17 [History] Levothyroxine Sodium [Levoxyl] 25 mcg PO DAILY 07/11/17 [History] Rivaroxaban [Xarelto] 20 mg PO DAILY 07/11/17 [History] Furosemide [Lasix] 40 mg PO DAILY 7 Days #7 tablet 07/16/17 [Rx] Ipratropium/Albuterol Neb [Duoneb] 3 ml IH Q6HR PRN 7 Days #28 vial.neb [Rx] Allergies/Adverse Reactions: 3 Allergy/AdvReac Type Severity Reaction Status Date / Time codeine Allergy Rash Verified 01/30/17 16:16 Opioids - Morphine Analogues Allergy Rash Verified 01/30/17 16:16 Sulfa (Sulfonamide Allergy Rash Verified 01/30/17 16:16 Antibiotics) Certification: Further, I certify that my clinical findings support that this patient is homebound (i.e. absences from home require considerable and taxing effort and are for medical reasons or druze services or infrequently or short duration when for other reasons) because: bilateral pleural effusions, anemia, chronic CHF, moderate protein-calorie malnutrition, and likely colon malignancy. Homebound Reason: Patient requires assistance of a person or device to safely leave home, Leaving home requires considerable and taxing effort due to condition, Severity of cardiac or pulmonary status limits activity tolerance Attestation: My signature below is to certify that this patient is under my care and that I, or nurse practitioner, or a physician's communications assistant working with me, has a face-to -face encounter with this patient.
== END 2017-07-16 16:19 | disposition home health service (06) | DRG 378 ==
LOC: 2NNU → SUATTDRO 07-11 02:41 → 2NENU 07-12 19:28
PROVIDERS: ADMIT Internal Medicine; ATTEND Internal Medicine
PROC: ENDOEBX (2017-07-12 12:00)

== ENCOUNTER 2017-10-17 14:37 | Inpatient (IN) ==
--- NOTE | 2017-10-17 14:09 | General Surg History&Physical ---
Date of Encounter: 10/17/17 Time of Encounter: 14:07 Assessment and Plan (1) Colon cancer Current Visit: Yes Status: Acute The assessment and plan as outlined above was discussed with the patient and/or family members who expressed understanding and agreement. All questions were answered. 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 All questions were answered. controlled, continue home medication Qualifiers: Hypertension type: unspecified Qualified Code(s): I10 - Essential (primary ) hypertension (3) Atrial fibrillation Current Visit: No Status: Chronic The assessment and plan as outlined above was discussed with the patient and/or family members who expressed understanding and agreement. All questions were answered. continue home medication, monitor Qualifiers: Atrial fibrillation type: unspecified Qualified Code(s): I48.91 - Unspecified atrial fibrillation (4) Hypothyroidism Current Visit: No Status: Chronic The assessment and plan as outlined above was discussed with the patient and/or family members who expressed understanding and agreement. All questions were answered. continue po synthroid Qualifiers: Hypothyroidism type: unspecified Qualified Code(s): E03.9 - Hypothyroidism , unspecified (5) Congestive heart failure Current Visit: No Status: Chronic The assessment and plan as outlined above was discussed with the patient and/or family members who expressed understanding and agreement. All questions were answered. Qualifiers: Heart failure type: unspecified Heart failure chronicity: chronic Qualified Code(s): I50.9 - Heart failure, unspecified (6) Protein-calorie malnutrition, moderate Current Visit: No Status: Chronic The assessment and plan as outlined above was discussed with the patient and/or family members who expressed understanding and agreement. All questions were answered. will start protein supplements when able History of Present Illness Chief complaint: left colon cancer HPI: Ms. Ulloa is a 87 year old female who was diagnosed on Jul 14 2017 with a left sided colon cancer. She has no obstructive symptoms. She has no significant abdominal pain. She has seen oncology. Patient has been unsure if she wanted to persue any therapy or treatment for this cancer. We have met three times in the office to discuss options including doing nothing but potential oral xeloda. She has decided she would like the tumor removed but does not want a formal cancer operation. Past Med Surg Social Fam HX - Past Medical History Source: patient, old records reviewed Medical history: arthritis, atrial fibrillation, CHF, dementia, hyperlipidemia, hypertension, other (OA, incontinence urine, Aortic stenosis, CHF, hypothyroid, cardiac murmur, GERD, CKD) Psychiatric history: anxiety, depression - Past Surgical History Surgical History: hysterectomy, knee replacement, thyroidectomy, other Additional surgical history: right hip surgery, goiter, left knee replacement, colonoscopy, Mohs sx rt helix, cataract b/l, CHERYL, csection, thyroidectomy - Social History Smoking Status: 2nd Hand Smoke Exposure Smokeless Tobacco Status: No Alcohol use: none Drug use: none - Family History Mother Family Member Ethnicity: Non- Living Status: Hx Family Cardiac Disorders: Yes Hx Family Cancer: Yes (Sqaumous cell carcinoma) Father Family Member Ethnicity: Non- Living Status: Hx Family Cancer: Yes (Lung) Medications and Allergies Carvedilol [Coreg] 25 mg PO BID 01/31/17 [History] Nitroglycerin [Nitrostat] 0.4 mg SL Q5M PRN 01/31/17 [History] Olmesartan Medoxomil [Benicar] 40 mg PO DAILY 01/31/17 [History] Rosuvastatin Calcium [Crestor] 10 mg PO DAILY 01/31/17 [History] Sertraline [Zoloft] 25 mg PO DAILY 01/31/17 [History] Docusate [Colace] 100 mg PO BID PRN capsule 02/04/17 [Rx] Dexlansoprazole [Dexilant] 60 mg PO DAILY 07/11/17 [History] LORazepam [Ativan] 0.5 mg PO TID PRN 07/11/17 [History] Levothyroxine Sodium [Levoxyl] 112 mcg PO DAILY 07/11/17 [History] Furosemide [Lasix] 40 mg PO DAILY 7 Days #7 tablet 07/16/17 [Rx] Ipratropium/Albuterol Neb [Duoneb] 3 ml IH Q6HR PRN 7 Days #28 vial.neb [Rx] Calcium Carbonate/Vitamin D3 [Calcium 500 + Vit D Caplet] 1 each PO BID #60 tablet 09/03/17 [Rx] Ergocalciferol (VITAMIN D2) [Vitamin D] 400 unit PO BID #60 tablet 09/03/17 [Rx] HYDROcodone/Acet 7.5/325 mg [[place] 7.5-325 mg] 1 tab PO Q6H PRN 10/17/17 [ History] 3 Allergy/AdvReac Type Severity Reaction Status Date / Time codeine Allergy Rash Verified 01/30/17 16:16 Opioids - Morphine Analogues Allergy Rash Verified 01/30/17 16:16 Sulfa (Sulfonamide Allergy Rash Verified 01/30/17 16:16 Antibiotics) cephalexin AdvReac Nausea Verified 09/03/17 13:13 Review of Systems All systems PM: reviewed and no additional remarkable complaints except as stated All systems PM: The remainder of the systems were reviewed and are negative General Surgery Exam Initial Vital Signs Temp Pulse Resp BP Pulse Ox 99.5 F 80 14 130/61 94 10/17/17 10:22 10/17/17 10:22 10/17/17 10:22 10/17/17 10:22 10/17/17 10:22 - General physical appearance no distress, cachectic, chronically ill - Eyes PERRL, normal ocular movement - ENT normal mucosa, normocephalic - Neck trachea midline - Respiratory normal expansion, clear to auscultation - Cardiovascular Cardiovascular exam: Present: irregular rhythm, murmurs - Abdomen Abdomen general surgery: Present: bowel sounds present, soft, non tender, distended. Absent: guarding, rebound - Integumentary Integumentary general surgery: Present: warm and dry, no abnormal pigmentation - Neurologic Present: CN 2-12 grossly intact, normal sensation - Musculoskeletal Present: normal posture - Psychiatric Psychiatric general surgery: Present: A&Ox3, speech is normal Results - Labs All other labs normal.
[~2017-10-17 14:37] MED LIST: *HR* LORazepam 0.5 MG TABLET PO PRN; *HR* Metoprolol 5 MG/5 ML VIAL IVP PRN; 0.9 % Sodium Chloride 1,000 ML IVC SCH; Ipratropium/Albuterol Neb 3 ML IH PRN; Naloxone 0.4 MG/ML INJ IVP PRN; Polyethylene Glycol 3350 255 GM POWDER PO ONE; SODIUM CHLORIDE/NAHCO3/KCL/PEG 4,000 ML SOLN.RECON PO ONE
[2017-10-17] MEDS: *HR* Heparin 5,000 UNIT/ML VIAL SQ SCH (17:35)
[2017-10-17] MEDS: Ondansetron 4 MG/2 ML VIAL IVP PRN (17:50)
[2017-10-18 05:15] LABS: Basophils % 0.6 %; Eosinophils # 0.1 K/mcL (0.0-0.6); Eosinophils % 2.7 %; Hematocrit 40.2 % (35.3-44.9); Hemoglobin 13.2 g/dL (11.5-15.4); Immature Granulocytes % 0.2 % (0-4); Lymphocytes % 19.2 %; Mean Corpuscular HGB Conc 32.8 g/dL (31.6-35.5); Mean Corpuscular Hemoglobin 29.4 pg (28.0-33.3); Mean Corpuscular Volume 89.5 fL (83.0-100.0); Mean Platelet Volume 10.3 fL (9.4-12.4); Monocytes # 0.4 K/mcL (0.0-1.3); Monocytes % 7.6 %; Neutrophils # 3.6 K/mcL (1.6-8.9); Platelet Count 146 K/mcL (140-400); Red Blood Count 4.49 M/mcL (3.82-4.97); Red Cell Distribution Width 15.3 % (11.5-14.5); Segmented Neutrophils % 69.7 %
[2017-10-18 05:20] LABS: INR 1.1
[2017-10-18 05:35] LABS: BUN/Creatinine Ratio 18 (6-26); Blood Urea Nitrogen 16 mg/dL (8-23); Carbon Dioxide 30 mEq/L (23-29); Chloride 108 mEq/L (98-107); Glucose 93 mg/dL (70-105); Magnesium 2.2 mg/dL (1.6-2.6); Osmolality,Calculated 301 (280-300); Phosphorous 2.7 mg/dL (2.7-4.5); Potassium 3.9 mEq/L (3.5-5.1); Sodium 145 mEq/L (136-145); eGFR For Non-African Americans > 60 (> 60)
[2017-10-18] MEDS: *HR* Heparin 5,000 UNIT/ML VIAL SQ SCH ×2 (06:02→16:28)
--- NOTE | 2017-10-18 07:15 | Anesthesia Evaluation PreOp ---
Date of Encounter: 10/18/17 Time of Encounter: 10:03 - Past History Planned Operation: Colonoscopy Cardiac History: [place], CHF, HTN, Hyperlipidemia, Arrhythmia (H/O A-Fib), Other ( mild aortic stenosis per echo 09/16/2017) Pulmonary History: Denies Any Significant HX DEAL ARCHITECT History: Denies Any Significant HX Other Medical History: Thyroid Anesthesia History: No Prior Anesthetic Complications, Past Anesthesia Alcohol Use: none Drug use: none Medications and Allergies Carvedilol [Coreg] 25 mg PO BID 01/31/17 [History] Nitroglycerin [Nitrostat] 0.4 mg SL Q5M PRN 01/31/17 [History] Olmesartan Medoxomil [Benicar] 40 mg PO DAILY 01/31/17 [History] Rosuvastatin Calcium [Crestor] 10 mg PO DAILY 01/31/17 [History] Sertraline [Zoloft] 25 mg PO DAILY 01/31/17 [History] Docusate [Colace] 100 mg PO BID PRN capsule 02/04/17 [Rx] Dexlansoprazole [Dexilant] 60 mg PO DAILY 07/11/17 [History] LORazepam [Ativan] 0.5 mg PO TID PRN 07/11/17 [History] Levothyroxine Sodium [Levoxyl] 112 mcg PO DAILY 07/11/17 [History] Furosemide [Lasix] 40 mg PO DAILY 7 Days #7 tablet 07/16/17 [Rx] Ipratropium/Albuterol Neb [Duoneb] 3 ml IH Q6HR PRN 7 Days #28 vial.neb [Rx] Calcium Carbonate/Vitamin D3 [Calcium 500 + Vit D Caplet] 1 each PO BID #60 tablet 09/03/17 [Rx] Ergocalciferol (VITAMIN D2) [Vitamin D] 400 unit PO BID #60 tablet 09/03/17 [Rx] HYDROcodone/Acet 7.5/325 mg [[place] 7.5-325 mg] 1 tab PO Q6H PRN 10/17/17 [ History] 3 Allergy/AdvReac Type Severity Reaction Status Date / Time codeine Allergy Rash Verified 01/30/17 16:16 Opioids - Morphine Analogues Allergy Rash Verified 01/30/17 16:16 Sulfa (Sulfonamide Allergy Rash Verified 01/30/17 16:16 Antibiotics) cephalexin AdvReac Nausea Verified 09/03/17 13:13 - Meds/Allergy Pre-op Review Medications Reviewed: Yes Allergies Reviewed: Yes Beta Blockers on Current Med List: Yes If Beta Blockers taken, Date/Time (Last Dose taken): 10/17/2017 at 0800 Anesthesia Results - Labs 10/18/17 04:32 10/18/17 04:32 - Imaging EKG: report reviewed (07/10/2017 SINUS RHYTHM WITH OCCASIONAL SUPRAVENTRICULAR PREMATURE COMPLEXES POOR R WAVE PROGRESSION) Additional studies: 09/06/2017 Echo Impressions: LVEF 60-65%. Normal LV chamber size and function. Mild concentric left ventricular hypertrophy. Mild left ventricular diastolic dysfunction. Normal right ventricular structure and function. Moderately calcified aortic valve leaflets. Mild aortic regurgitation. Mild aortic stenosis. Mean gradient 16 mmHg. No evidence of pulmonary hypertension. Aortic Valve Peak Marcos: 2.65 m/sec Mean Marcos: 1.90 m/sec Peak Grad: 28.00 mmHg Mean Grad: 16.00 mmHg Valve Area: 1.06 cm2 Pressure 1/2 time: 500.00 msec Anesthesia Exam Vital Signs/O2 Sat/Glucose, Most Recent Temp Pulse Resp BP Pulse Ox 98.4 F 67 16 194/70 95 10/18/17 06:46 10/18/17 06:46 10/18/17 06:46 10/18/17 06:46 10/18/17 06:46 Blood Glucose* 92 Height: 5'4''/1.63m Weight: 102 lbs/46.4 kg NPO (# of Hours): 8 Pain Scale: 0 Pain Scale Used: Numeric (1 - 10) - HEENT Pupil (Motor): EOMI Mallampati: III Teeth: Edentulous Oral Opening: Greater than 3 - DEAL ARCHITECT LOC: Oriented DEAL ARCHITECT Motor: Normal RUE, Normal LUE, Normal RLE, Normal LLE, Normal Face DEAL ARCHITECT Sensory: Normal: RUE, LUE, RLE, LLE, Face - Cardiac Rhythm: Irregular Murmur: Systolic - Pulmonary Breath Sounds: bilateral Clear Respiratory Effort: Symmetrical Anesthesia Assess/Plan ASA Score: 3 Modified [place] Scale for Level of Consciousness: Cooperative, oriented, and tranquil Anesthetic Plan: MAC Monitoring Plan: Standard Monitors
[2017-10-18] MEDS: Pantoprazole 40 MG VIAL IVP SCH (08:40)
[2017-10-18] MEDS ORDERED: Furosemide 40 MG TABLET PO SCH (09:00)
[2017-10-18] MEDS ORDERED: *HR* Labetalol 100 MG/20 ML MDV ONE (10:14)
[2017-10-18] MEDS ORDERED: Lidocaine -MPF 2% 2 ML VIAL ONE (10:21)
[2017-10-18] MEDS ORDERED: *HR* Metoprolol 5 MG/5 ML VIAL IVP ONE (10:35)
[2017-10-18] MEDS ORDERED: *HR* Propofol 200 MG/20 ML VIAL IVP ONE ×2 (10:35→10:47)
--- NOTE | 2017-10-18 11:09 | Anesthesia Evaluation Post Op ---
Date of Encounter: 10/18/17 Time of Encounter: 11:08 - Vital Signs Vital Signs: Vital Signs/O2 Sat, Most Current Temp Pulse Resp BP Pulse Ox 98.2 F 64 16 138/68 98 10/18/17 10:06 10/18/17 10:54 10/18/17 10:54 10/18/17 10:54 10/18/17 10:54 - Lungs Lungs: Clear Ascult./Percussion - Airway Airway: Non-obstructed - Cardiovascular Irregular Rate - Mental Status Mental Status: Asleep with brisk response to light stimulation - Pain Pain Scale: 0 Pain Scale used: Numeric (1 - 10) - Nausea Vomiting Nausea Vomiting: Not Present - Hydration Hydration: NPO, Has not voided - Discharge PostOp Status: Transfer Patient to floor
[2017-10-18] MEDS ORDERED: Isovue-370 500 ML INFUS..BTL IV ONE (11:10)
[2017-10-18] MEDS: Ondansetron 4 MG/2 ML VIAL IVP PRN ×2 (12:44→19:28)
[2017-10-18] MEDS ORDERED: Ondansetron 4 MG/2 ML VIAL IVP PRN (15:44)
[2017-10-18] MEDS: Piperacillin/Tazobactam 3.375 GM in 0.9 % Sodium Chloride Mini Bag 100 ML IVPB SCH (16:28)
[2017-10-18] MEDS ORDERED: *HR* Metoprolol 5 MG/5 ML VIAL IVP PRN (18:01)
--- NOTE | 2017-10-18 18:01 | Event Note ---
Date of Encounter: 10/18/17 Time of Encounter: 17:58 Called and spoke with radiologist regarding her CT scan and he is unsure if spot of free air is intraabdominal over left lobe of liver or subcutaneous due to heparin sq shots. No other free air around colon. She is tender from colonoscopy today as was difficult due to very tortuous colon and area was tattoo'd and clipped. Will start zosyn and monitor, vitals hypertensive but normal HR currently. No abdominal distention. She is currently nauseous. Npo, ivf hydration
[2017-10-18] MEDS ORDERED: 0.9 % Sodium Chloride 1,000 ML IVC SCH (18:15)
[2017-10-19] MEDS: Piperacillin/Tazobactam 3.375 GM in 0.9 % Sodium Chloride Mini Bag 100 ML IVPB SCH ×2 (00:31→08:17)
[2017-10-19 02:03] LABS: Basophils % 0.2 %; Eosinophils % 0.2 %; Hematocrit 39.2 % (35.3-44.9); Hemoglobin 12.8 g/dL (11.5-15.4); Immature Granulocytes % 0.3 % (0-4); Lymphocytes # 1.4 K/mcL (0.6-4.6); Lymphocytes % 12.1 %; Mean Corpuscular HGB Conc 32.7 g/dL (31.6-35.5); Mean Corpuscular Volume 88.9 fL (83.0-100.0); Mean Platelet Volume 10.5 fL (9.4-12.4); Monocytes # 0.7 K/mcL (0.0-1.3); Monocytes % 6.3 %; Neutrophils # 9.6 K/mcL (1.6-8.9); Platelet Count 145 K/mcL (140-400); Red Blood Count 4.41 M/mcL (3.82-4.97); Red Cell Distribution Width 15.5 % (11.5-14.5); Segmented Neutrophils % 80.9 %
[2017-10-19 02:21] LABS: Phosphorous 4.7 mg/dL (2.7-4.5)
[2017-10-19 02:22] LABS: Calcium 8.8 mg/dL (8.6-10.3); Potassium 3.6 mEq/L (3.5-5.1)
[2017-10-19] MEDS: *HR* Heparin 5,000 UNIT/ML VIAL SQ SCH (06:23)
[2017-10-19] MEDS: Pantoprazole 40 MG VIAL IVP SCH (08:16)
--- NOTE | 2017-10-19 09:32 | General Surgery Progress Note ---
Date of Encounter: 10/19/17 Time of Encounter: 08:00 - Assessment and Plan (1) Colon cancer Current Visit: Yes Status: Acute Diagnosed in July, no obstructive symptoms. Had been seen in office by dr. Gan on three different occiasion as patient attempted to decide upon her offered treatments. decided upon robotic oclon resection on 10/19/2017 and was admitted for bowel prep and colonoscopy. s/p colonoscopy and tattoo'ing 10/18/2017. Noted small amount of free air n cT over the left lobe of the lver. Unclear if spot of free air is intra-abdominal over left lobe of liver or subcutaneous due to heparin sq shots. KUB 10/19/2017 with no evidence of pneumoperitoneum. She pre-emptively states, "If the doctor thought she had to open me up, I don't want that. I'm too old and don't want a big open incision." She was last seen by oncology in August 2017 who noted palliative resection seem to be a good option considering her comorbidities and at that time, she was needing cardiac clearance for treatment options and she had not made any decisions. Cardiology noted acceptable candidate for non-elective surgery in September 2017. 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 Continue home meds Will continue to monitor Last seen in September [address] Mortensen and noted her thyroid replacement increase to 112 g, no significant aortic valve disease and was in sinus rhythm with supraventricular premature beats, he did not recommend she undergo elective surgery; however her upcoming surgical intervention was NOt elective, and she was an acceptable candidate to proceed. Qualifiers: Atrial fibrillation type: unspecified Qualified Code(s): I48.91 - Unspecified atrial fibrillation (4) Hypothyroidism Current Visit: No Status: Chronic continue home meds Qualifiers: Hypothyroidism type: unspecified Qualified Code(s): E03.9 - Hypothyroidism , unspecified (5) Protein-calorie malnutrition, moderate Current Visit: Yes Status: Chronic Continue supportive care will add protein supplements when appropriate (6) Pleural effusion, bilateral Current Visit: Yes Status: Chronic Most recent echo 09/2017 EV/EV echocardiogram Impressions: LVEF 60-65%. Normal LV chamber size and function. Mild concentric left ventricular hypertrophy. Mild left ventricular diastolic dysfunction. Normal right ventricular structure and function. Moderately calcified aortic valve leaflets. Mild aortic regurgitation. Mild aortic stenosis. Mean gradient 16 mmHg. No evidence of pulmonary hypertension. Will continue to monitor Subjective Patient reports: no new complaints, feels better, still having pain, voiding w/ o difficulty, flatus, no bowel movement, afebrile Objective Vital Signs - Last 8 Hours Temp Pulse Resp BP Pulse Ox 10/19/17 08:15 186/82 10/19/17 08:07 94 10/19/17 07:49 98.8 F 61 20 192/82 94 10/19/17 04:22 98.2 F 68 15 159/57 94 Intake and Output 10/18/17 10/19/17 10/19/17 23:59 07:59 15:59 Intake Total 100 / 100 100 / 100 0 / 0 Output Total 0 / 0 0 / 0 0 / 0 Balance 100 / 100 100 / 100 0 / 0 Intake: IV Fluids 100 / 100 100 / 100 Zosyn 3.375 GM In 0.9 % Sodium 100 / 100 100 / 100 Chloride (Mini-Bag +) 100 ML @ 25 mls/hr IVPB Q8HR [facility] Rx#: [id number] Oral 0 / 0 0 / 0 0 / 0 Output: Urine 0 / 0 0 / 0 0 / 0 Other: Meal NPO Percent of Meal Consumed 0% # Urine Diapers 1 Weight 46.2 kg Blood Glucose* 86 Patient Weight 10/19/17 23:59 Weight 46.2 kg - General physical appearance no distress - Eyes normal ocular movement - ENT normal nares, normal mucosa - Neck Neck exam: trachea midline - Respiratory normal expansion, normal respiratory effort, clear to auscultation - Cardiovascular Cardiovascular exam: Present: RRR - Abdomen Abdomen: Present: bowel sounds present, soft, tender (mild tenderness to deep palpation) Hernia: none - Integumentary no rash - Neurologic normal sensation - Musculoskeletal normal posture, other (general deconditioning noted) - Psychiatric oriented to time, oriented to person, oriented to place - Labs 10/19/17 01:16 10/19/17 01:16 Diabetes panel 10/19/17 Range/Units 01:16 Sodium 142 (136-145) mEq/L Potassium 3.6 (3.5-5.1) mEq/L Chloride 105 (98-107) mEq/L Carbon Dioxide 29 (23-29) mEq/L BUN 20 (8-23) mg/dL Creatinine 1.20 (0.60-1.20) mg/dL Glucose 103 (70-105) mg/dL Calcium 8.8 (8.6-10.3) mg/dL Calcium panel 10/19/17 10/19/17 Range/Units 01:16 01:16 Calcium 8.8 (8.6-10.3) mg/dL Phosphorus 4.7 H (2.7-4.5) mg/dL Pituitary panel 10/19/17 Range/Units 01:16 Sodium 142 (136-145) mEq/L Potassium 3.6 (3.5-5.1) mEq/L Chloride 105 (98-107) mEq/L Carbon Dioxide 29 (23-29) mEq/L BUN 20 (8-23) mg/dL Creatinine 1.20 (0.60-1.20) mg/dL Glucose 103 (70-105) mg/dL Calcium 8.8 (8.6-10.3) mg/dL Adrenal panel 10/19/17 Range/Units 01:16 Sodium 142 (136-145) mEq/L Potassium 3.6 (3.5-5.1) mEq/L Chloride 105 (98-107) mEq/L Carbon Dioxide 29 (23-29) mEq/L BUN 20 (8-23) mg/dL Creatinine 1.20 (0.60-1.20) mg/dL Glucose 103 (70-105) mg/dL Calcium 8.8 (8.6-10.3) mg/dL Consult Discharge Plan - Plan Referrals: Rocael Pelleiter MD [Primary Care Provider] -
[2017-10-19] MEDS: Ondansetron 4 MG/2 ML VIAL IVP PRN (10:05)
[2017-10-19] MEDS ORDERED: Dexamethasone 4 MG/ML VIAL ONE (12:48)
[2017-10-19] MEDS ORDERED: *HR* Propofol 200 MG/20 ML VIAL IVP ONE (12:50)
[2017-10-19] MEDS ORDERED: *HR* FentaNYL (PF) 100 MCG/2 ML VIAL ONE ×2 (12:50→15:41)
[2017-10-19] MEDS ORDERED: Lidocaine -MPF 2% 2 ML VIAL ONE (12:51)
[2017-10-19] MEDS ORDERED: *HR* Rocuronium Bromide 50 MG/5 ML VIAL ONE (12:52)
[2017-10-19] MEDS ORDERED: Ondansetron 4 MG/2 ML VIAL ONE (12:53)
--- NOTE | 2017-10-19 13:01 | Anesthesia Evaluation PreOp ---
Date of Encounter: 10/19/17 Time of Encounter: 12:59 - Past History Planned Operation: robotic colon resection Cardiac History: [place], CHF, HTN, Hyperlipidemia, Arrhythmia (h/o A-Fib), Other ( mild ) Pulmonary History: Denies Any Significant HX LAYOUT FORMER History: Denies Any Significant HX Other Medical History: Thyroid Anesthesia History: No Prior Anesthetic Complications, Past Anesthesia ( hysterecotomy, IM nail right hip, left TKA) Alcohol Use: none Drug use: none Medications and Allergies Carvedilol [Coreg] 25 mg PO BID 01/31/17 [History] Nitroglycerin [Nitrostat] 0.4 mg SL Q5M PRN 01/31/17 [History] Olmesartan Medoxomil [Benicar] 40 mg PO DAILY 01/31/17 [History] Rosuvastatin Calcium [Crestor] 10 mg PO DAILY 01/31/17 [History] Sertraline [Zoloft] 25 mg PO DAILY 01/31/17 [History] Docusate [Colace] 100 mg PO BID PRN capsule 02/04/17 [Rx] Dexlansoprazole [Dexilant] 60 mg PO DAILY 07/11/17 [History] LORazepam [Ativan] 0.5 mg PO TID PRN 07/11/17 [History] Levothyroxine Sodium [Levoxyl] 112 mcg PO DAILY 07/11/17 [History] Furosemide [Lasix] 40 mg PO DAILY 7 Days #7 tablet 07/16/17 [Rx] Ipratropium/Albuterol Neb [Duoneb] 3 ml IH Q6HR PRN 7 Days #28 vial.neb [Rx] Calcium Carbonate/Vitamin D3 [Calcium 500 + Vit D Caplet] 1 each PO BID #60 tablet 09/03/17 [Rx] Ergocalciferol (VITAMIN D2) [Vitamin D] 400 unit PO BID #60 tablet 09/03/17 [Rx] HYDROcodone/Acet 7.5/325 mg [[place] 7.5-325 mg] 1 tab PO Q6H PRN 10/17/17 [ History] 3 Allergy/AdvReac Type Severity Reaction Status Date / Time codeine Allergy Rash Verified 01/30/17 16:16 Opioids - Morphine Analogues Allergy Rash Verified 01/30/17 16:16 Sulfa (Sulfonamide Allergy Rash Verified 01/30/17 16:16 Antibiotics) cephalexin AdvReac Nausea Verified 09/03/17 13:13 - Meds/Allergy Pre-op Review Medications Reviewed: Yes Allergies Reviewed: Yes Beta Blockers on Current Med List: Yes If Beta Blockers taken, Date/Time (Last Dose taken): today 815 Anesthesia Results - Labs 10/19/17 01:16 10/19/17 01:16 Laboratory Tests 07/15/17 10/18/17 10/19/17 10:54 04:32 01:16 Hgb 12.8 Hct 39.2 Plt Count 145 PT 12.0 INR 1.1 APTT 30.9 Sodium Potassium Chloride Carbon Dioxide BUN Creatinine 10/19/17 01:16 Hgb Hct Plt Count PT INR APTT Sodium 142 Potassium 3.6 Chloride 105 Carbon Dioxide 29 BUN 20 Creatinine 1.20 - Imaging Additional studies: echo: Impressions: LVEF 60-65%. Normal LV chamber size and function. Mild concentric left ventricular hypertrophy. Mild left ventricular diastolic dysfunction. Normal right ventricular structure and function. Moderately calcified aortic valve leaflets. Mild aortic regurgitation. Mild aortic stenosis. Mean gradient 16 mmHg. No evidence of pulmonary hypertension. Anesthesia Exam Selected Entries 10/19/17 11:39 10/19/17 11:44 Temperature 99 F Pulse Rate 64 Blood Pressure 160/68 O2 Sat by Pulse Oximetry 94 Oxygen Delivery Method Room Air Weight: 46kg NPO (# of Hours): 8 - HEENT Pupil (Motor): EOMI Mallampati: III Teeth: Edentulous Oral Opening: Greater than 3 - LAYOUT FORMER LOC: Oriented LAYOUT FORMER Motor: Normal RUE, Normal LUE, Normal RLE, Normal LLE, Normal Face LAYOUT FORMER Sensory: Normal: RUE, LUE, RLE, LLE, Face - Cardiac Rhythm: Regular Murmur: Systolic (2/6) - Pulmonary Breath Sounds: bilateral Clear Respiratory Effort: Symmetrical Anesthesia Assess/Plan ASA Score: 3 Modified [place] Scale for Level of Consciousness: Cooperative, oriented, and tranquil Anesthetic Plan: General Monitoring Plan: Standard Monitors Recovery Plan: PACU (agrees to GA)
[2017-10-19] MEDS ORDERED: *HR* Midazolam HCl 2 MG/2 ML VIAL ONE (13:50)
[2017-10-19] MEDS ORDERED: Clindamycin 600 MG/50 ML 600 MG/50 ML IV.SOLN IVPB ONE (13:52)
[2017-10-19] MEDS ORDERED: Meropenem 500 MG in 0.9 % Sodium Chloride Mini Bag 100 ML IVP ONE (14:12)
[2017-10-19] MEDS ORDERED: Neostigmine Methylsulfate 3 MG/3 ML SYRINGE ONE (15:06)
[2017-10-19] MEDS ORDERED: *HR* OxyCODONE Immed Rel 5 MG TABLET PO PRN (15:16)
--- NOTE | 2017-10-19 16:04 | Operative Note ---
Date of procedure: 10/19/17 Pre-op diagnosis: colon cancer Post-op diagnosis: same (distal transverse) Procedure: Open/laparoscopic assisted partial transverse (distal) colectomy Complications: none immediate Anesthesia: GETA, local Local Anesthetics: 0.5% Sensorcaine HCL SubQ (cc) (25) Surgeon: Keysha Gan Was there an assistant county attorney present: Yes Clamp Operator: Hallie Baer Estimated blood loss (cc): 5 Specimen: partial transverse colon Condition: stable Disposition: PACU Procedure in Detail: Patient was brought into the operating suite and placed supine on the operating table. Sign in was performed and everyone is in agreement. Anesthesia was induced and patient was endotracheally intubated by anesthesia without incident. Jones catheter was placed by the circulating nurse. NG tube was placed by anesthesia. Bilateral arms were tucked at her sides. Her abdomen was prepped and draped in usual sterile fashion. Timeout was performed again everyone is in agreement. A stab incision in the left upper quadrant was made with an 11 blade. A Veress with needle was placed in this and water drop test confirmed placement and the abdomen was insufflated. We then entered the abdomen in the right upper quadrant with a 5 mm 0 degree laparoscope and a 5 mm XL trocar after first incising the skin with an 11 blade. The area under entry was visualized is no obvious bowel injury and no apparent bleeding. A right lower quadrant 5 mm port was placed under direct visualization after first incising the skin with an 11 blade. The tattoo was localized at the distal transverse colon. The colon was very mobile and floppy and very easily reach the anterior abdominal wall at the midline. The distal transverse colon was grasped with a laparoscopic Monet. A midline incision just beneath the umbilicus was made for several centimeters with a 15 blade. We dissected through the fascia and subcutaneous tissue with the Bovie. The distal transverse colon was brought up through the midline incision. The colon cancer was located via palpation and was just proximal to the colon tattoos. The omentum overlying the colon cancer was split with the impact LigaSure. An opening several centimeters proximal to the colon cancer in the transverse colon mesentery was made with the Bovie and the transverse colon transected with a linear HERMINIA-75 stapler blue load. An area in the mesentery of the transverse colon several centimeters distal to the colon cancer was chosen and opened with the Bovie. The distal transverse colon was transected with the linear HERMINIA-75 stapler blue load. There were several enlarged and or black lymph nodes in the mesentery of the transverse colon which were attempted to be excised with the specimen. The mesentery of the transverse colon was taken down with the impact LigaSure. The specimen was placed off to the back table for pathology. The ends of the transected transverse colon were cleared of fat. A [id number]-bg-[id number] anastomosis was constructed first with a linear HERMINIA-75 stapler creating the common channel and the end closed with a TL 60 stapler. A 3-0 silk crotch stitch was placed. The close common channel was reinforced with 3-0 silk glxyiy-kv-fobsk stitches. The anastomosis was patent. The anastomosis was placed back into the abdominal cavity. Hudson's are placed on either side of the fascia for retraction. The fascia at the midline was closed with 2 separate 0 PDS non-looped running stitches meeting in the middle. The subcutaneous tissue was irrigated with sterile saline. The subcutaneous tissue was reapproximated with 3-0 Vicryl stitches. [place] were used to approximate the skin. The abdomen was reinsufflated. The anastomosis was evaluated and there was no bleeding, no bleeding within the abdominal cavity. The insufflation was evacuated and the trochars removed. The skin at the 25 mm port sites were closed with 4-0 Monocryl interrupted subcuticular stitch and the staple. Band-Aids were applied at the incisions. All lap and instrument counts are correct end of the case. The patient tolerated the procedure well. She was awoken by anesthesia and taken to PACU in stable condition. The Jones catheter and NG tube remained with the patient.
[2017-10-19] MEDS ORDERED: Ondansetron 4 MG/2 ML VIAL IVP ONE (16:07)
[2017-10-19] MEDS ORDERED: *HR* Promethazine 25 MG/ML VIAL ONE (16:22)
[2017-10-19] MEDS: *HR* Promethazine 25 MG/ML VIAL IVP PRN ×2 (16:25→16:35)
[2017-10-19] MEDS: *HR* HYDROmorphone (PF) 1 MG/ML SYRINGE IVP PRN ×2 (16:40→16:50)
--- NOTE | 2017-10-19 17:02 | Anesthesia Evaluation Post Op ---
Date of Encounter: 10/19/17 Time of Encounter: 17:00 - Vital Signs Vital Signs: Vital Signs/O2 Sat, Most Current Temp Pulse Resp BP Pulse Ox 97.8 F 68 14 175/65 93 10/19/17 16:30 10/19/17 16:50 10/19/17 16:50 10/19/17 16:50 10/19/17 16:50 - Lungs Lungs: Clear Ascult./Percussion - Airway Airway: Non-obstructed - Cardiovascular Regular Rate - Mental Status Mental Status: Alert & Oriented, Answers Appropriately, Baseline Status - Pain Pain Scale: 3 (sleepy unless aroused) Pain Scale used: Numeric (1 - 10) - Nausea Vomiting Nausea Vomiting: Not Present - Hydration Hydration: NPO, Has not voided, Jones catheter - Discharge PostOp Status: Transfer Patient to floor
[2017-10-19] MEDS ORDERED: Naloxone 0.4 MG/ML INJ IVP PRN (18:36)
[2017-10-19] MEDS ORDERED: Ipratropium/Albuterol Neb 3 ML IH PRN (18:36)
[2017-10-19] MEDS: *HR* Metoprolol 5 MG/5 ML VIAL IVP PRN (18:49)
[2017-10-19] MEDS: 0.9 % Sodium Chloride 1,000 ML IVC SCH (18:52)
[2017-10-19] MEDS: OXYCODONE Oral CONC 10 MG/0.5 ML ORAL.SYG SL PRN (20:33)
[2017-10-19] MEDS: *HR* LORazepam 0.5 MG TABLET PO PRN (20:34)
[2017-10-19] MEDS: Acetaminophen IV 1,000 MG/100 ML INFUS..BTL IVPB SCH (23:48)
[2017-10-20] MEDS: Piperacillin/Tazobactam 3.375 GM in 0.9 % Sodium Chloride Mini Bag 100 ML IVPB SCH ×3 (00:16→17:45)
[2017-10-20] MEDS: OXYCODONE Oral CONC 10 MG/0.5 ML ORAL.SYG SL PRN ×3 (05:37→17:48)
[2017-10-20 05:54] LABS: Basophils % 0.1 %; Hematocrit 37.2 % (35.3-44.9); Hemoglobin 12.1 g/dL (11.5-15.4); Immature Granulocytes % 0.2 % (0-4); Lymphocytes % 9.5 %; Mean Corpuscular HGB Conc 32.5 g/dL (31.6-35.5); Mean Corpuscular Hemoglobin 28.5 pg (28.0-33.3); Mean Corpuscular Volume 87.7 fL (83.0-100.0); Mean Platelet Volume 10.2 fL (9.4-12.4); Monocytes # 0.5 K/mcL (0.0-1.3); Neutrophils # 8.6 K/mcL (1.6-8.9); Platelet Count 153 K/mcL (140-400); Red Blood Count 4.24 M/mcL (3.82-4.97); Red Cell Distribution Width 15.7 % (11.5-14.5); Segmented Neutrophils % 85.2 %
[2017-10-20 06:10] LABS: Magnesium 1.9 mg/dL (1.6-2.6); Phosphorous 5.1 mg/dL (2.7-4.5)
[2017-10-20 06:11] LABS: Calcium 8.8 mg/dL (8.6-10.3); Potassium 3.6 mEq/L (3.5-5.1)
[2017-10-20] MEDS: 0.9 % Sodium Chloride 1,000 ML IVC SCH ×2 (06:53→19:57)
[2017-10-20] MEDS: Acetaminophen IV 1,000 MG/100 ML INFUS..BTL IVPB SCH ×2 (08:46→17:46)
[2017-10-20] MEDS: Ondansetron 4 MG/2 ML VIAL IVP PRN (09:00)
--- NOTE | 2017-10-20 09:04 | General Surgery Progress Note ---
<Pearl Santos E - Last Filed: 10/20/17 09:01> Date of Encounter: 10/20/17 Time of Encounter: 09:01 - Assessment and Plan (1) Colon cancer Current Visit: Yes Status: Acute Date of procedure: 10/19/17 Pre-op diagnosis: colon cancer Post-op diagnosis: same (distal transverse) Procedure: Open/laparoscopic assisted partial transverse (distal) colectomy Complications: none immediate Anesthesia: GETA, local Local Anesthetics: 0.5% Sensorcaine HCL SubQ (cc) (25) Surgeon: Keysha Gan Patient tolerated procedure well. 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 Normal LV chamber size and function. Mild concentric left ventricular hypertrophy. Mild left ventricular diastolic dysfunction. Normal right ventricular structure and function. Moderately calcified aortic valve leaflets. Mild aortic regurgitation. Mild aortic stenosis. Mean gradient 16 mmHg. No evidence of pulmonary hypertension. Will continue to monitor (3) Protein-calorie malnutrition, moderate Current Visit: Yes Status: Chronic Continue supportive care Add protein supplements when appropriate (4) Atrial fibrillation Current Visit: No Status: Chronic ONe month episode when she was severely anemic continue home medications will continue to monitor Qualifiers: Atrial fibrillation type: unspecified Qualified Code(s): I48.91 - Unspecified atrial fibrillation (5) HTN (hypertension) Current Visit: No Status: Chronic continue Cozaar PRN hydralazine for Systolic BP greater than 160 Qualifiers: Hypertension type: unspecified Qualified Code(s): I10 - Essential (primary ) hypertension (6) Hypothyroidism Current Visit: No Status: Chronic continue home medications Qualifiers: Hypothyroidism type: unspecified Qualified Code(s): E03.9 - Hypothyroidism , unspecified Subjective Patient reports: feels better, still having pain, flatus, no bowel movement, other (Patient said she is feeling better than yesterday. She has some pain diffusely through her abdomen and was a bit nauseous after taking her medications. Has passed soem gas but no bowel movement at this time. ) Objective Vital Signs - Last 8 Hours Temp Pulse Resp BP Pulse Ox 10/20/17 05:50 99.2 F 63 15 190/74 96 Intake and Output 10/19/17 10/20/17 10/20/17 23:59 07:59 15:59 Intake Total 0 / 0 1200 / 1200 Output Total 305 / 305 550 / 550 Balance -305 / -305 650 / 650 Intake: IV Fluids 1200 / 1200 0.9 % Sodium Chloride 1,000 ML 1000 / 1000 @ 85 mls/hr IVC .[id number] [facility] Rx #:[id number] Ofirmev 1,000 mg/100 ml 1,000 100 / 100 mg In 100 ml @ 400 mls/hr IVPB Q8HR [facility] Rx#:[id number] Zosyn 3.375 GM In 0.9 % Sodium 100 / 100 Chloride (Mini-Bag +) 100 ML @ 25 mls/hr IVPB Q8HR [facility] Rx#: [id number] Oral 0 / 0 0 / 0 Output: Estimated Blood Loss 5 / 5 Urine Amount (Catheter) 300 / 300 Catheter 550 / 550 Other: Meal NPO Percent of Meal Consumed 0% # Bowel Movements 0 Weight 47 kg Blood Glucose* 90 Patient Weight 10/20/17 23:59 Weight 47 kg - General physical appearance well developed, moderate distress, chronically ill - Respiratory normal expansion, normal respiratory effort, clear to percussion - Cardiovascular Cardiovascular exam: Present: RRR - Abdomen Abdomen: Present: bowel sounds present, distended, tender Abdominal Tenderness: diffusely - Incision Incision: Present: clean and dry, intact - Musculoskeletal normal posture - Psychiatric oriented to time, oriented to person, oriented to place - Labs 10/20/17 05:31 10/20/17 05:31 Diabetes panel 10/20/17 10/20/17 Range/Units 05:31 05:31 Sodium 143 (136-145) mEq/L Potassium 3.6 (3.5-5.1) mEq/L Chloride 111 H (98-107) mEq/L Carbon Dioxide 23 (23-29) mEq/L BUN 30 H (8-23) mg/dL Creatinine 1.25 H (0.60-1.20) mg/dL Glucose 102 (70-105) mg/dL Calcium 8.8 (8.6-10.3) mg/dL Albumin 3.2 L (3.5-5.7) g/dL Calcium panel 10/20/17 10/20/17 10/20/17 Range/Units 05:31 05:31 05:31 Calcium 8.8 (8.6-10.3) mg/dL Phosphorus 5.1 H (2.7-4.5) mg/dL Albumin 3.2 L (3.5-5.7) g/dL Pituitary panel 10/20/17 Range/Units 05:31 Sodium 143 (136-145) mEq/L Potassium 3.6 (3.5-5.1) mEq/L Chloride 111 H (98-107) mEq/L Carbon Dioxide 23 (23-29) mEq/L BUN 30 H (8-23) mg/dL Creatinine 1.25 H (0.60-1.20) mg/dL Glucose 102 (70-105) mg/dL Calcium 8.8 (8.6-10.3) mg/dL Adrenal panel 10/20/17 10/20/17 Range/Units 05:31 05:31 Sodium 143 (136-145) mEq/L Potassium 3.6 (3.5-5.1) mEq/L Chloride 111 H (98-107) mEq/L Carbon Dioxide 23 (23-29) mEq/L BUN 30 H (8-23) mg/dL Creatinine 1.25 H (0.60-1.20) mg/dL Glucose 102 (70-105) mg/dL Calcium 8.8 (8.6-10.3) mg/dL Albumin 3.2 L (3.5-5.7) g/dL - VTE Documentation of Mechanical Device: Intermittent pneumatic compression device Consult Discharge Plan - Plan Referrals: Keysha Gan MD [Partnered Physician] - 11/04/17 10:35 am Rocael Pelletier MD [Primary Care Provider] - <Keysha Gan - Last Filed: 10/20/17 17:47> Date of Encounter: 10/20/17 - Assessment and Plan (1) Colon cancer Current Visit: Yes Status: Acute continue npo prn pain control - increase to q4 hr prn antiemetics gi/dvt prophylaxis OOB to chair OT/PT await return of bowel function pathology pending Qualifiers: Colon location: descending Qualified Code(s): 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 (2) HTN (hypertension) Current Visit: No Status: Chronic constuled cardiology for management Qualifiers: Hypertension type: essential hypertension Qualified Code(s): I10 - Essential (primary) hypertension (3) Atrial fibrillation Current Visit: No Status: Chronic Qualifiers: Atrial fibrillation type: unspecified Qualified Code(s): I48.91 - Unspecified atrial fibrillation (4) Hypothyroidism Current Visit: No Status: Chronic Qualifiers: Hypothyroidism type: unspecified Qualified Code(s): E03.9 - Hypothyroidism , unspecified (5) Congestive heart failure Current Visit: No Status: Chronic Qualifiers: Heart failure type: unspecified Heart failure chronicity: chronic Qualified Code(s): I50.9 - Heart failure, unspecified (6) Protein-calorie malnutrition, moderate Current Visit: Yes Status: Chronic npo currently Subjective Patient reports: no new complaints, still having pain, no flatus (only passed once), no bowel movement, other Narrative: distended no nausea Objective Vital Signs - Last 8 Hours Temp Pulse Resp BP Pulse Ox 10/20/17 14:47 98.7 F 60 18 145/64 96 10/20/17 10:35 98.0 F 62 14 142/54 95 Intake and Output 10/20/17 10/20/17 10/20/17 07:59 15:59 23:59 Intake Total 1200 / 1200 0 / 0 Output Total 550 / 550 125 / 125 Balance 650 / 650 -125 / -125 Intake: IV Fluids 1200 / 1200 0.9 % Sodium Chloride 1,000 ML 1000 / 1000 @ 85 mls/hr IVC .[id number] [facility] Rx #:[id number] Ofirmev 1,000 mg/100 ml 1,000 100 / 100 mg In 100 ml @ 400 mls/hr IVPB Q8HR [facility] Rx#:[id number] Zosyn 3.375 GM In 0.9 % Sodium 100 / 100 Chloride (Mini-Bag +) 100 ML @ 25 mls/hr IVPB Q8HR [facility] Rx#: [id number] Oral 0 / 0 0 / 0 Output: Catheter 550 / 550 125 / 125 Other: Meal npo lunch # Bowel Movements 0 Weight 47 kg Blood Glucose* 90 89 90 Patient Weight 10/20/17 23:59 Weight 47 kg - General physical appearance well developed, well nourished, no distress - Eyes normal ocular movement - ENT normal mucosa, normocephalic - Neck Neck exam: trachea midline - Respiratory normal expansion, normal respiratory effort, clear to auscultation - Cardiovascular Cardiovascular exam: Present: RRR - Abdomen Abdomen: Present: bowel sounds present, soft, distended, tender Abdominal Tenderness: diffusely - Incision Incision: Present: clean and dry, intact - Integumentary no abnormal pigmentation - Neurologic normal sensation - Musculoskeletal normal posture - Psychiatric oriented to time, oriented to person, oriented to place, memory intact - Labs 10/20/17 05:31 10/20/17 05:31 Diabetes panel 10/20/17 10/20/17 Range/Units 05:31 05:31 Sodium 143 (136-145) mEq/L Potassium 3.6 (3.5-5.1) mEq/L Chloride 111 H (98-107) mEq/L Carbon Dioxide 23 (23-29) mEq/L BUN 30 H (8-23) mg/dL Creatinine 1.25 H (0.60-1.20) mg/dL Glucose 102 (70-105) mg/dL Calcium 8.8 (8.6-10.3) mg/dL Albumin 3.2 L (3.5-5.7) g/dL Calcium panel 10/20/17 10/20/17 10/20/17 Range/Units 05:31 05:31 05:31 Calcium 8.8 (8.6-10.3) mg/dL Phosphorus 5.1 H (2.7-4.5) mg/dL Albumin 3.2 L (3.5-5.7) g/dL Pituitary panel 10/20/17 Range/Units 05:31 Sodium 143 (136-145) mEq/L Potassium 3.6 (3.5-5.1) mEq/L Chloride 111 H (98-107) mEq/L Carbon Dioxide 23 (23-29) mEq/L BUN 30 H (8-23) mg/dL Creatinine 1.25 H (0.60-1.20) mg/dL Glucose 102 (70-105) mg/dL Calcium 8.8 (8.6-10.3) mg/dL Adrenal panel 10/20/17 10/20/17 Range/Units 05:31 05:31 Sodium 143 (136-145) mEq/L Potassium 3.6 (3.5-5.1) mEq/L Chloride 111 H (98-107) mEq/L Carbon Dioxide 23 (23-29) mEq/L BUN 30 H (8-23) mg/dL Creatinine 1.25 H (0.60-1.20) mg/dL Glucose 102 (70-105) mg/dL Calcium 8.8 (8.6-10.3) mg/dL Albumin 3.2 L (3.5-5.7) g/dL - Attending Attestation I examined this patient and my medical decision-making was reviewed with the Resident Physician. I agree with the documented findings, disposition and treatment plan as described except to the extent set forth below.
--- NOTE | 2017-10-20 15:02 | Cardiology Consult Note ---
<Rudi Treviño R - Last Filed: 10/20/17 15:03> Date of Encounter: 10/20/17 Time of Encounter: 15:01 Assessment and Plan (1) Essential hypertension Current Visit: Yes Status: Acute BP fluctuating s/p surgery, as high as 212 systolic. Most recent reading 145/ 64. On Coreg 25mg BID and Cozaar 12.5mg daily. Also has PRN IV BB and Hydralazine ordered for HTN, hydralazine given this AM, IV BB given last night. Will increase Cozaar to 25mg daily, give extra 12.5mg now. Creatinine mildly worsened today--1.25. Will monitor closely with ARB increase. Will uptitrate/ add other agents if necessary. Re-evaluate in AM. (2) PAF (paroxysmal atrial fibrillation) Current Visit: Yes Status: Acute Self reported hx of A-Fib. Reviewed outpt cardiology encounter with Dr. Mortensen. Pt has never had confirmed A-Fib. Previously on Coumadin and Xarelto for DVT, developed GI bleed. SR on telemetry. Continue BB. TTE 09/16/17 LVEF 60-65%. Normal LV chamber size and function. Mild cLVH. Mild LVDD. Moderately calcified aortic valve leaflets. Mild AR. Mild . Mean gradient 16 mmHg. No evidence of pulmonary hypertension. Discussion w patient/family: The assessment and plan as outlined above was discussed with the patient and/or family members who expressed understanding and agreement. All questions were answered. Thank you for involving us in the care of your patient. Please call with any questions. I will discuss all the above with Dr. Pollock and make changes as necessary. History of Present Illness Consult date: 10/20/17 Requesting physician: Keysha Gan Consult reason: HTN management Chief complaint: abd pain History of present illness: Ms. Ulloa is a 87 year old female with PMH of reported A-fib, HTN, HLD, diagnosed on Jul 14 2017 with colon cancer s/p Open/laparoscopic assisted partial transverse (distal) colectomy. BP has been fluctuating and cardiology has been consulted for hypertension management. Currently on Losartan 12.5mg daily and Coreg 25mg BID. Has been on PRN IV BB and Hydralazine. BP as high as 212 systolic. She states her BP increases at home when she is stressed or lacking sleep. Most recent BP reading 145/64. Pt denies chest pain or dyspnea. Only complaint is abdominal pain s/p surgery. States she had a-fib in the remote past. Was anticoagulated on Coumadin and xarelto in the past for DVT and developed GI bleeding. Follows with Dr. Mortensen for cardiology as outpt. TTE 09/16/17 LVEF 60-65%. Normal LV chamber size and function. Mild concentric left ventricular hypertrophy. Mild left ventricular diastolic dysfunction. Moderately calcified aortic valve leaflets. Mild aortic regurgitation. Mild aortic stenosis. Mean gradient 16 mmHg. No evidence of pulmonary hypertension. Past Med Surg Social Fam HX - Past Medical History Medical history: arthritis, atrial fibrillation, CHF, dementia, hyperlipidemia, hypertension, other (OA, incontinence urine, Aortic stenosis, CHF, hypothyroid, cardiac murmur, GERD, CKD) Psychiatric history: anxiety, depression - Past Surgical History Surgical History: hysterectomy, knee replacement, thyroidectomy, other Additional surgical history: right hip surgery, goiter, left knee replacement, colonoscopy, Mohs sx rt helix, cataract b/l, CHERYL, csection, thyroidectomy - Social History Smoking Status: 2nd Hand Smoke Exposure Smokeless Tobacco Status: No Alcohol use: none Drug use: none - Family History Mother Family Member Ethnicity: Non- Living Status: Hx Family Cardiac Disorders: Yes Hx Family Cancer: Yes (Sqaumous cell carcinoma) Father Family Member Ethnicity: Non- Living Status: Hx Family Cancer: Yes (Lung) Medications and Allergies Carvedilol [Coreg] 25 mg PO BID 01/31/17 [History] Nitroglycerin [Nitrostat] 0.4 mg SL Q5M PRN 01/31/17 [History] Olmesartan Medoxomil [Benicar] 40 mg PO DAILY 01/31/17 [History] Rosuvastatin Calcium [Crestor] 10 mg PO DAILY 01/31/17 [History] Sertraline [Zoloft] 25 mg PO DAILY 01/31/17 [History] Docusate [Colace] 100 mg PO BID PRN capsule 02/04/17 [Rx] Dexlansoprazole [Dexilant] 60 mg PO DAILY 07/11/17 [History] LORazepam [Ativan] 0.5 mg PO TID PRN 07/11/17 [History] Levothyroxine Sodium [Levoxyl] 112 mcg PO DAILY 07/11/17 [History] Furosemide [Lasix] 40 mg PO DAILY 7 Days #7 tablet 07/16/17 [Rx] Ipratropium/Albuterol Neb [Duoneb] 3 ml IH Q6HR PRN 7 Days #28 vial.neb [Rx] Calcium Carbonate/Vitamin D3 [Calcium 500 + Vit D Caplet] 1 each PO BID #60 tablet 09/03/17 [Rx] Ergocalciferol (VITAMIN D2) [Vitamin D] 400 unit PO BID #60 tablet 09/03/17 [Rx] HYDROcodone/Acet 7.5/325 mg [Quinault 7.5-325 mg] 1 tab PO Q6H PRN 10/17/17 [ History] 3 Allergy/AdvReac Type Severity Reaction Status Date / Time codeine Allergy Rash Verified 01/30/17 16:16 Opioids - Morphine Analogues Allergy Rash Verified 01/30/17 16:16 Sulfa (Sulfonamide Allergy Rash Verified 01/30/17 16:16 Antibiotics) cephalexin AdvReac Nausea Verified 09/03/17 13:13 All Systems Review: The remainder of the systems were reviewed and are negative - Gastrointestinal Gastrointestinal: abdominal pain Physical Examination Vital Signs, Last 4 Hours Temp Pulse Resp BP Pulse Ox 10/20/17 14:47 98.7 F 60 18 145/64 96 Vital Signs Temp Pulse Resp BP Pulse Ox 10/20/17 14:47 98.7 F 60 18 145/64 96 10/20/17 10:35 98.0 F 62 14 142/54 95 10/20/17 05:50 99.2 F 63 15 190/74 96 10/20/17 00:17 98.8 F 75 15 152/68 97 10/19/17 20:20 98.4 F 69 16 170/62 94 10/19/17 20:00 94 10/19/17 19:20 97.9 F 73 15 165/72 94 10/19/17 18:20 97.6 F 76 16 172/74 96 10/19/17 17:45 97.6 F 67 14 170/69 94 10/19/17 17:18 97.5 F L 75 16 176/76 94 10/19/17 17:10 98 F 62 14 169/69 95 10/19/17 17:00 98 F 67 14 164/78 95 10/19/17 16:50 68 14 175/65 93 10/19/17 16:40 66 16 171/75 92 10/19/17 16:30 97.8 F 63 16 164/69 91 10/19/17 16:20 60 16 165/95 90 10/19/17 16:10 62 16 171/71 97 10/19/17 16:00 98.8 F 68 16 180/72 96 Intake and Output 10/19/17 10/20/17 10/20/17 23:59 07:59 15:59 Intake Total 0 / 0 1200 / 1200 0 / 0 Output Total 305 / 305 550 / 550 125 / 125 Balance -305 / -305 650 / 650 -125 / -125 Intake: IV Fluids 1200 / 1200 0.9 % Sodium Chloride 1,000 ML 1000 / 1000 @ 85 mls/hr IVC .[id number] [facility] Rx #:[id number] Ofirmev 1,000 mg/100 ml 1,000 100 / 100 mg In 100 ml @ 400 mls/hr IVPB Q8HR [facility] Rx#:[id number] Zosyn 3.375 GM In 0.9 % Sodium 100 / 100 Chloride (Mini-Bag +) 100 ML @ 25 mls/hr IVPB Q8HR [facility] Rx#: [id number] Oral 0 / 0 0 / 0 0 / 0 Output: Estimated Blood Loss 5 / 5 Urine Amount (Catheter) 300 / 300 Catheter 550 / 550 125 / 125 Other: Meal NPO npo lunch Percent of Meal Consumed 0% # Bowel Movements 0 Weight 47 kg Blood Glucose* 90 89 Patient Weight 10/20/17 23:59 Weight 47 kg General: Conversant, No Apparent Distress HEENT: Atraumatic, Normocephaly, Mucus Membranes Moist Neck: No JVD, Normal carotid pulses Cardiac: Reg Rate and Rhythm, Normal S1 and S2, No Murmur Lungs: Normal Breath Sounds, No Wheeze, Rales, Rhonchi Neuro: Alert and responsive, No focal deficits noted Abdomen: Soft Skin: No rashes noted on visualized skin Musculoskeletal: No Chest Wall Tenderness Extremities: No Clubbing, No Cyanosis, No Edema, Normal Pulses Results 10/20/17 05:31 10/20/17 05:31 Lab Results 10/20/17 10/20/17 10/20/17 05:31 05:31 05:31 WBC 10.1 Hgb 12.1 Hct 37.2 Plt Count 153 Sodium 143 Potassium 3.6 Chloride 111 H Carbon Dioxide 23 BUN 30 H Creatinine 1.25 H Glucose 102 Calcium 8.8 Magnesium 1.9 Short CBC 10/20/17 Range/Units 05:31 WBC 10.1 (4.3-11.1) K/mcL Hgb 12.1 (11.5-15.4) g/dL Hct 37.2 (35.3-44.9) % Plt Count 153 (140-400) K/mcL Neutrophils # 8.6 (1.6-8.9) K/mcL BMP 10/20/17 Range/Units 05:31 Sodium 143 (136-145) mEq/L Potassium 3.6 (3.5-5.1) mEq/L Chloride 111 H (98-107) mEq/L Carbon Dioxide 23 (23-29) mEq/L BUN 30 H (8-23) mg/dL Creatinine 1.25 H (0.60-1.20) mg/dL Glucose 102 (70-105) mg/dL Calcium 8.8 (8.6-10.3) mg/dL Liver Function 10/20/17 Range/Units 05:31 Albumin 3.2 L (3.5-5.7) g/dL Active Medications Albuterol/Ipratropium (Duoneb) 3 ml IH Q6H PRN PRN Reason: Shortness Of Breath Stop: 04/20/18 18:37 Carvedilol (Coreg) 25 mg PO BIDWM [facility] PRN Reason: Protocol Stop: 04/18/18 17:01 Last Admin: 10/20/17 08:45 Dose: 25 mg Hydralazine HCl (Hydralazine) 10 mg IVP Q6H PRN PRN Reason: Hypertension Stop: 04/20/18 18:37 Last Admin: 10/20/17 06:09 Dose: 10 mg Sodium Chloride (0.9 % Sodium Chloride) 1,000 mls @ 85 mls/hr IVC .[id number] [facility] Stop: 04/19/18 18:16 Last Admin: 10/20/17 06:53 Dose: 85 mls/hr Acetaminophen (Ofirmev 1,000 Mg/100 Ml) 1,000 mg in 100 mls @ 400 mls/hr IVPB Q8HR [facility] Stop: 04/21/18 00:01 Last Admin: 10/20/17 08:46 Dose: 400 mls/hr Piperacillin Sod/Tazobactam (Sod 3.375 gm/ Sodium Chloride) 100 mls @ 25 mls/ hr IVPB Q12HR [facility] Stop: 04/21/18 18:01 Levothyroxine Sodium (Synthroid) 112 mcg PO DAILY@0630 [facility] Stop: 04/19/18 06:31 Last Admin: 10/20/17 05:37 Dose: 112 mcg Lorazepam (Ativan) 0.5 mg PO TID PRN PRN Reason: Anxiety Stop: 04/18/18 14:15 Last Admin: 10/19/17 20:34 Dose: 0.5 mg Losartan Potassium (Cozaar) 12.5 mg PO DAILY [facility] PRN Reason: Protocol Stop: 04/21/18 09:01 Last Admin: 10/20/17 08:45 Dose: 12.5 mg Metoprolol Tartrate (Lopressor) 7.5 mg IVP Q6H PRN PRN Reason: Hypertension Stop: 04/20/18 18:37 Last Admin: 10/19/17 18:49 Dose: 7.5 mg Naloxone HCl (Narcan) 0.4 mg IVP Q2MIN PRN PRN Reason: SEE COMMENTS Stop: 04/18/18 13:04 Ondansetron HCl (Zofran) 4 mg IVP Q6H PRN PRN Reason: Nausea And Vomiting Stop: 04/20/18 18:37 Last Admin: 10/20/17 09:00 Dose: 4 mg Oxycodone HCl (Oxycodone Oral Conc) 2.5 mg SL Q6H PRN; Protocol PRN Reason: Pain Stop: 04/20/18 18:37 Last Admin: 10/20/17 12:58 Dose: 2.5 mg Sertraline HCl (Zoloft) 25 mg PO DAILY [facility] Stop: 04/19/18 09:01 Last Admin: 10/20/17 08:44 Dose: 25 mg - Imaging and Cardiology Echo: report reviewed - EKG Interpretation EKG results cardiology: other (12 hr tele AVG HR 70, SR) Consult Discharge Plan - Plan Referrals: Keysha Gan MD [Partnered Physician] - 11/04/17 10:35 am Rocael Pelletier MD [Primary Care Provider] - <Ricardo Pollock - Last Filed: 10/21/17 16:38> Date of Encounter: 10/20/17 - Attending Attestation I have personally performed a face to face evaluation on this patient. I have reviewed and agree with the care plan. History and Exam by me shows: CC: Uncontrolled hypertension HPI: Pt admitted for colon resection, underwent partial transverse colectomy, is recovering well. She has had labile blood pressures, despite resuming home medications. She denies chest pain, pressure or shortness of breath. She has hx paroxysmal A fib, but denies symptoms of palpitations, heart racing or skipping. She has hx moderate , and diastolic heart failure, but no CAD. She does follow with Dr. Mortensen (cardiology) regularly. ROS: reviewed PMH: reviewed. PE: pt seen and examined, agree with findings as documented. IMP:Plan ' 1. Essential hypertension, blood pressure not well controlled, increase Cozaar from 12.5 to 25 mg q d, continue to monitor blood pressure response 2. PAF: Transient a fib post op, now back in NSR, continue to monitor, has failed systemic anticoagulation due to provocation of GI bleed on Xaralto, is not a candidate for systemic anticoagulation due to bleeding risk. 3. Aortic Stenosis: moderate, continue medical management, no intervention required. Assessment and Plan Discussion w patient/family: The assessment and plan as outlined above was discussed with the patient and/or family members who expressed understanding and agreement. All questions were answered. Thank you for involving us in the care of your patient. Please call with any questions. History of Present Illness History of present illness: Ms. Ulloa is a 87 year old female All Systems Review: The remainder of the systems were reviewed and are negative Physical Examination Vital Signs, Last 4 Hours Temp Pulse Resp BP Pulse Ox 10/21/17 14:03 98.5 F 71 16 160/65 93 10/21/17 13:23 152/67 Results 10/21/17 06:27 10/21/17 06:27 Lab Results 10/21/17 10/21/17 06:27 06:27 WBC 8.2 Hgb 12.0 Hct 37.5 Plt Count 147 Sodium 142 Potassium 3.5 Chloride 113 H Carbon Dioxide 21 L BUN 32 H Creatinine 0.94 Glucose 79 Calcium 8.5 L
[2017-10-20] MEDS ORDERED: 0.9 % Sodium Chloride Mini Bag 100 ML ONE (17:33)
[2017-10-20] MEDS ORDERED: OXYCODONE Oral CONC 10 MG/0.5 ML ORAL.SYG SL PRN (18:00)
[2017-10-20] MEDS: *HR* Heparin 5,000 UNIT/ML VIAL SQ SCH (19:57)
[2017-10-21] MEDS: Acetaminophen IV 1,000 MG/100 ML INFUS..BTL IVPB SCH ×4 (00:22→23:57)
[2017-10-21] MEDS: *HR* LORazepam 0.5 MG TABLET PO PRN (00:29)
[2017-10-21] MEDS: *HR* Heparin 5,000 UNIT/ML VIAL SQ SCH ×2 (06:06→17:30)
[2017-10-21] MEDS: Piperacillin/Tazobactam 3.375 GM in 0.9 % Sodium Chloride Mini Bag 100 ML IVPB SCH ×3 (06:06→23:58)
[2017-10-21 06:43] LABS: Basophils # 0.1 K/mcL (0.0-0.2); Basophils % 0.6 %; Eosinophils # 0.2 K/mcL (0.0-0.6); Eosinophils % 2.6 %; Hematocrit 37.5 % (35.3-44.9); Immature Granulocytes % 0.6 % (0-4); Lymphocytes % 12.1 %; Mean Corpuscular Hemoglobin 28.7 pg (28.0-33.3); Mean Corpuscular Volume 89.7 fL (83.0-100.0); Mean Platelet Volume 10.4 fL (9.4-12.4); Monocytes # 0.5 K/mcL (0.0-1.3); Monocytes % 5.5 %; Neutrophils # 6.4 K/mcL (1.6-8.9); Platelet Count 147 K/mcL (140-400); Red Blood Count 4.18 M/mcL (3.82-4.97); Red Cell Distribution Width 15.7 % (11.5-14.5); Segmented Neutrophils % 78.6 %
[2017-10-21] MEDS: 0.9 % Sodium Chloride 1,000 ML IVC SCH ×2 (06:44→17:41)
[2017-10-21 07:02] LABS: BUN/Creatinine Ratio 34 (6-26); Blood Urea Nitrogen 32 mg/dL (8-23); Calcium 8.5 mg/dL (8.6-10.3); Carbon Dioxide 21 mEq/L (23-29); Chloride 113 mEq/L (98-107); Glucose 79 mg/dL (70-105); Osmolality,Calculated 300 (280-300); Potassium 3.5 mEq/L (3.5-5.1); Sodium 142 mEq/L (136-145); eGFR For Non-African Americans 56 (> 60)
[2017-10-21] MEDS: Ondansetron 4 MG/2 ML VIAL IVP PRN (09:55)
--- NOTE | 2017-10-21 11:37 | General Surgery Progress Note ---
Date of Encounter: 10/21/17 Time of Encounter: 11:20 - Assessment and Plan (1) Colon cancer Current Visit: Yes Status: Acute POD #2 Open/laparoscopic assisted partial transverse (distal) colectomy with Dr. 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 (2) HTN (hypertension) Current Visit: No Status: Chronic Continue home medication regimen prn hydralazine and metoprolol Qualifiers: Hypertension type: essential hypertension Qualified Code(s): I10 - Essential (primary) hypertension (3) Atrial fibrillation Current Visit: No Status: Chronic Continue home medication regimen Will continue to monitor Qualifiers: Atrial fibrillation type: paroxysmal Qualified Code(s): I48.0 - Paroxysmal atrial fibrillation (4) Hypothyroidism Current Visit: No Status: Chronic Continue home medication regimen Qualifiers: Hypothyroidism type: unspecified Qualified Code(s): E03.9 - Hypothyroidism , unspecified (5) Protein-calorie malnutrition, moderate Current Visit: Yes Status: Chronic Will plan to add protein supplements with return of bowel function (6) DVT prophylaxis Current Visit: No Status: Acute Heparin 5,000 units SQ twice daily for DVT prophylaxis EPCDs to bilateral lower extremities for DVT prophylaxis Out of bed to chair TID Subjective Patient reports: no new complaints, still having pain (post-operative pain), no flatus, bowel movement, nausea, afebrile Objective Vital Signs - Last 8 Hours Temp Pulse Resp BP Pulse Ox 10/21/17 07:09 98.6 F 65 16 167/66 96 10/21/17 06:15 165/69 10/21/17 03:55 98.6 F 64 15 192/69 97 Intake and Output 10/20/17 10/21/17 10/21/17 23:59 07:59 15:59 Intake Total 1200 / 1200 1100 / 1100 200 / 200 Output Total 75 / 75 450 / 450 Balance 1125 / 1125 650 / 650 200 / 200 Intake: IV Fluids 1200 / 1200 1100 / 1100 200 / 200 0.9 % Sodium Chloride 1,000 ML 1000 / 1000 1000 / 1000 @ 85 mls/hr IVC .[id number] [facility] Rx #:[id number] Ofirmev 1,000 mg/100 ml 1,000 100 / 100 100 / 100 100 / 100 mg In 100 ml @ 400 mls/hr IVPB Q8HR [facility] Rx#:[id number] Zosyn 3.375 GM In 0.9 % Sodium 100 / 100 100 / 100 Chloride (Mini-Bag +) 100 ML @ 25 mls/hr IVPB Q12HR [facility] Rx#: [id number] Oral 0 / 0 0 / 0 0 / 0 Output: Catheter 75 / 75 450 / 450 Other: Meal NPO NPO Percent of Meal Consumed 0% Stool Size Moderate Stool Consistency liquid # Bowel Movements 0 0 Weight 47.8 kg Blood Glucose* 90 70 - General physical appearance well developed, no distress, chronically ill - Eyes normal ocular movement - ENT dry mucosa, atraumatic, normocephalic - Neck Neck exam: trachea midline - Respiratory normal respiratory effort, clear to auscultation, other (diminished bibasilar bases) - Cardiovascular Cardiovascular exam: Present: RRR, murmurs - Abdomen Abdomen: Present: bowel sounds present, soft, tender (expected post-operative tenderness) - Incision Incision: Present: clean and dry, intact - Genitourinary other (munoz catheter to SD with clear, yellow urine (approximately 900ml since midnight)) - Neurologic CN 2-12 grossly intact - Musculoskeletal other (physical deconditioning noted) - Psychiatric oriented to time, oriented to person, oriented to place, speech is normal, memory intact - Labs 10/21/17 06:27 10/21/17 06:27 Diabetes panel 10/21/17 Range/Units 06:27 Sodium 142 (136-145) mEq/L Potassium 3.5 (3.5-5.1) mEq/L Chloride 113 H (98-107) mEq/L Carbon Dioxide 21 L (23-29) mEq/L BUN 32 H (8-23) mg/dL Creatinine 0.94 (0.60-1.20) mg/dL Glucose 79 (70-105) mg/dL Calcium 8.5 L (8.6-10.3) mg/dL Calcium panel 10/21/17 Range/Units 06:27 Calcium 8.5 L (8.6-10.3) mg/dL Pituitary panel 10/21/17 Range/Units 06:27 Sodium 142 (136-145) mEq/L Potassium 3.5 (3.5-5.1) mEq/L Chloride 113 H (98-107) mEq/L Carbon Dioxide 21 L (23-29) mEq/L BUN 32 H (8-23) mg/dL Creatinine 0.94 (0.60-1.20) mg/dL Glucose 79 (70-105) mg/dL Calcium 8.5 L (8.6-10.3) mg/dL Adrenal panel 10/21/17 Range/Units 06:27 Sodium 142 (136-145) mEq/L Potassium 3.5 (3.5-5.1) mEq/L Chloride 113 H (98-107) mEq/L Carbon Dioxide 21 L (23-29) mEq/L BUN 32 H (8-23) mg/dL Creatinine 0.94 (0.60-1.20) mg/dL Glucose 79 (70-105) mg/dL Calcium 8.5 L (8.6-10.3) mg/dL - VTE Documentation of Mechanical Device: Intermittent pneumatic compression device Consult Discharge Plan - Plan Referrals: Keysha Gan MD [Partnered Physician] - 11/04/17 10:35 am Rocael Pelletier MD [Primary Care Provider] - - Attending Attestation For this encounter, I have reviewed the PSYCH THERAPIST or PA documentation, treatment plan, and medical decision making; and I have had face to face time with this patient.
[2017-10-21] MEDS: Metoclopramide 10 MG/2 ML VIAL IVP SCH ×3 (12:09→23:54)
--- NOTE | 2017-10-21 12:56 | Cardiology Progress Note ---
Date of Encounter: 10/21/17 Time of Encounter: 12:54 Assessment and Plan (1) Essential hypertension Current Visit: Yes Status: Acute BP fluctuating s/p surgery. On Coreg 25mg BID and Cozaar has been increased from 12.5mg to 50mg daily. Still required PRN IV Hydralazine at 1220 today for BP 174/66. Continue PRN IV BB and Hydralazine. Renal function normal s/p ARB increase. Continue BB and ARB. Will add Norvasc 5mg daily. Re-evaluate in AM. (2) PAF (paroxysmal atrial fibrillation) Current Visit: Yes Status: Acute Self reported hx of A-Fib. Reviewed outpt cardiology encounter with Dr. Mortensen. Pt has never had confirmed A-Fib. Previously on Coumadin and Xarelto for DVT, developed GI bleed. SR on telemetry. Continue BB. TTE 09/16/17 LVEF 60-65%. Normal LV chamber size and function. Mild cLVH. Mild LVDD. Moderately calcified aortic valve leaflets. Mild AR. Mild . Mean gradient 16 mmHg. No evidence of pulmonary hypertension. Discussion w patient/family: The assessment and plan as outlined above was discussed with the patient and/or family members who expressed understanding and agreement. All questions were answered. Thank you for involving us in the care of your patient. Please call with any questions. I will discuss all the above with Dr. Pollock and make changes as necessary. Subjective Principal diagnosis: PAF, HTN Interval history: BP up to 190s systolic last night. Increased Losartan to 50mg daily this AM. Renal function normalized today. Pt reports palpitations this AM. Pt is SR. Objective Vital Signs, Last 4 Hours Temp Pulse Resp BP Pulse Ox 10/21/17 11:00 98.0 F 63 16 174/66 93 Vital Signs Temp Pulse Resp BP Pulse Ox 10/21/17 11:00 98.0 F 63 16 174/66 93 10/21/17 07:09 98.6 F 65 16 167/66 96 10/21/17 06:15 165/69 10/21/17 03:55 98.6 F 64 15 192/69 97 10/20/17 19:17 99.1 F 73 15 148/66 98 10/20/17 14:47 98.7 F 60 18 145/64 96 Intake and Output 10/20/17 10/21/17 10/21/17 23:59 07:59 15:59 Intake Total 1200 / 1200 1100 / 1100 200 / 200 Output Total 75 / 75 450 / 450 Balance 1125 / 1125 650 / 650 200 / 200 Intake: IV Fluids 1200 / 1200 1100 / 1100 200 / 200 0.9 % Sodium Chloride 1,000 ML 1000 / 1000 1000 / 1000 @ 85 mls/hr IVC .[id number] [facility] Rx #:[id number] Ofirmev 1,000 mg/100 ml 1,000 100 / 100 100 / 100 100 / 100 mg In 100 ml @ 400 mls/hr IVPB Q8HR [facility] Rx#:[id number] Zosyn 3.375 GM In 0.9 % Sodium 100 / 100 100 / 100 Chloride (Mini-Bag +) 100 ML @ 25 mls/hr IVPB Q12HR [facility] Rx#: [id number] Oral 0 / 0 0 / 0 0 / 0 Output: Catheter 75 / 75 450 / 450 Other: Meal NPO NPO Percent of Meal Consumed 0% Stool Size Moderate Stool Consistency liquid # Bowel Movements 0 0 Weight 47.8 kg Blood Glucose* 90 70 78 General: Conversant HEENT: Atraumatic, Normocephaly, Mucus Membranes Moist Neck: No JVD, Normal carotid pulses Cardiac: Reg Rate and Rhythm, Normal S1 and S2, No Murmur Lungs: Normal Breath Sounds, No Wheeze, Rales, Rhonchi Neuro: Alert and responsive, No focal deficits noted Abdomen: Soft Skin: No rashes noted on visualized skin Musculoskeletal: No Chest Wall Tenderness Extremities: No Clubbing, No Cyanosis, No Edema, Normal Pulses Results 10/21/17 06:27 10/21/17 06:27 Lab Results 10/21/17 10/21/17 06:27 06:27 WBC 8.2 Hgb 12.0 Hct 37.5 Plt Count 147 Sodium 142 Potassium 3.5 Chloride 113 H Carbon Dioxide 21 L BUN 32 H Creatinine 0.94 Glucose 79 Calcium 8.5 L Short CBC 10/21/17 Range/Units 06:27 WBC 8.2 (4.3-11.1) K/mcL Hgb 12.0 (11.5-15.4) g/dL Hct 37.5 (35.3-44.9) % Plt Count 147 (140-400) K/mcL Neutrophils # 6.4 (1.6-8.9) K/mcL BMP 10/21/17 Range/Units 06:27 Sodium 142 (136-145) mEq/L Potassium 3.5 (3.5-5.1) mEq/L Chloride 113 H (98-107) mEq/L Carbon Dioxide 21 L (23-29) mEq/L BUN 32 H (8-23) mg/dL Creatinine 0.94 (0.60-1.20) mg/dL Glucose 79 (70-105) mg/dL Calcium 8.5 L (8.6-10.3) mg/dL Active Medications Albuterol/Ipratropium (Duoneb) 3 ml IH Q6H PRN PRN Reason: Shortness Of Breath Stop: 04/20/18 18:37 Carvedilol (Coreg) 25 mg PO BIDWM [facility] PRN Reason: Protocol Stop: 04/18/18 17:01 Last Admin: 10/21/17 09:32 Dose: 25 mg Heparin Sodium (Porcine) (Heparin) 5,000 unit SQ Q12HCO [facility] Stop: 04/21/18 18:01 Last Admin: 10/21/17 06:06 Dose: 5,000 unit Hydralazine HCl (Hydralazine) 10 mg IVP Q6H PRN PRN Reason: Hypertension Stop: 04/20/18 18:37 Last Admin: 10/21/17 12:20 Dose: 10 mg Sodium Chloride (0.9 % Sodium Chloride) 1,000 mls @ 85 mls/hr IVC .[id number] [facility] Stop: 04/19/18 18:16 Last Admin: 10/21/17 06:44 Dose: 85 mls/hr Acetaminophen (Ofirmev 1,000 Mg/100 Ml) 1,000 mg in 100 mls @ 400 mls/hr IVPB Q8HR [facility] Stop: 04/21/18 00:01 Last Infusion: 10/21/17 09:48 Dose: Infused Piperacillin Sod/Tazobactam (Sod 3.375 gm/ Sodium Chloride) 100 mls @ 25 mls/ hr IVPB Q12HR [facility] Stop: 04/21/18 18:01 Last Infusion: 10/21/17 10:10 Dose: Infused Levothyroxine Sodium (Synthroid) 112 mcg PO DAILY@0630 [facility] Stop: 04/19/18 06:31 Last Admin: 10/21/17 06:06 Dose: 112 mcg Lorazepam (Ativan) 0.5 mg PO TID PRN PRN Reason: Anxiety Stop: 04/18/18 14:15 Last Admin: 10/21/17 00:29 Dose: 0.5 mg Losartan Potassium (Cozaar) 50 mg PO DAILY [facility] PRN Reason: Protocol Stop: 04/22/18 09:01 Last Admin: 10/21/17 09:37 Dose: 50 mg Metoclopramide HCl (Reglan) 10 mg IVP Q6HR [facility] Stop: 10/23/17 12:01 Last Admin: 10/21/17 12:09 Dose: 10 mg Metoprolol Tartrate (Lopressor) 7.5 mg IVP Q6H PRN PRN Reason: Hypertension Stop: 04/20/18 18:37 Last Admin: 10/19/17 18:49 Dose: 7.5 mg Naloxone HCl (Narcan) 0.4 mg IVP Q2MIN PRN PRN Reason: SEE COMMENTS Stop: 04/18/18 13:04 Ondansetron HCl (Zofran) 4 mg IVP Q6H PRN PRN Reason: Nausea And Vomiting Stop: 04/20/18 18:37 Last Admin: 10/21/17 09:55 Dose: 4 mg Oxycodone HCl (Oxycodone Oral Conc) 2.5 mg SL Q4H PRN; Protocol PRN Reason: Pain Stop: 04/20/18 18:37 Sertraline HCl (Zoloft) 25 mg PO DAILY [facility] Stop: 04/19/18 09:01 Last Admin: 10/21/17 09:37 Dose: 25 mg - Imaging and Cardiology Echo: report reviewed - EKG Interpretation EKG results cardiology: other (12 hr tele AVG HR 67, SR) - VTE Documentation of Mechanical Device: Intermittent pneumatic compression device Consult Discharge Plan - Plan Referrals: Keysha Gan MD [Partnered Physician] - 11/04/17 10:35 am Rocael Pelletier MD [Primary Care Provider] -
[2017-10-22 04:47] LABS: BUN/Creatinine Ratio 34 (6-26); Blood Urea Nitrogen 29 mg/dL (8-23); Calcium 8.2 mg/dL (8.6-10.3); Carbon Dioxide 13 mEq/L (23-29); Chloride 115 mEq/L (98-107); Glucose 58 mg/dL (70-105); Osmolality,Calculated 292 (280-300); Sodium 139 mEq/L (136-145); eGFR For Non-African Americans > 60 (> 60)
[2017-10-22] MEDS: *HR* Metoprolol 5 MG/5 ML VIAL IVP PRN (04:54)
[2017-10-22] MEDS: Ondansetron 4 MG/2 ML VIAL IVP PRN (04:54)
[2017-10-22] MEDS: Metoclopramide 10 MG/2 ML VIAL IVP SCH ×4 (05:58→23:55)
[2017-10-22] MEDS: 0.9 % Sodium Chloride 1,000 ML IVC SCH ×2 (05:58→20:24)
[2017-10-22] MEDS: *HR* Heparin 5,000 UNIT/ML VIAL SQ SCH ×2 (05:59→16:53)
[2017-10-22] MEDS ORDERED: Lidocaine -MPF 1% 5 ML AMPUL INFILT ONE (08:37)
[2017-10-22] MEDS ORDERED: Ondansetron 4 MG/2 ML VIAL IVP ONE (08:38)
[2017-10-22] MEDS ORDERED: Simethicone 80 MG TAB.CHEW PO PRN (08:39)
--- NOTE | 2017-10-22 08:46 | General Surgery Progress Note ---
Date of Encounter: 10/22/17 Time of Encounter: 08:43 - Assessment and Plan (1) Colon cancer Current Visit: Yes Status: Acute Date of procedure: 10/19/17 Pre-op diagnosis: colon cancer Post-op diagnosis: same (distal transverse) Procedure: Open/laparoscopic assisted partial transverse (distal) colectomy Complications: none immediate POD #3 as above. Final pathology remains pending. She states she is continued to feel nauseated, not participating in recovery (refuses IS and refused OOB with therapy) b/c she did not feel well. She is taking very little ice chips. Plan: continue supportive care and discomfort management PICC and TPN ice chips as tolerated PRN antiemetics discomfort management G.I. 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 (2) HTN (hypertension) Current Visit: No Status: Chronic cardiology following Qualifiers: Hypertension type: essential hypertension Qualified Code(s): I10 - Essential (primary) hypertension (3) Atrial fibrillation Current Visit: No Status: Chronic Cardiology following Qualifiers: Atrial fibrillation type: paroxysmal Qualified Code(s): I48.0 - Paroxysmal atrial fibrillation (4) Hypothyroidism Current Visit: No Status: Chronic continue home meds Qualifiers: Hypothyroidism type: unspecified Qualified Code(s): E03.9 - Hypothyroidism , unspecified (5) Protein-calorie malnutrition, moderate Current Visit: Yes Status: Chronic Continue supportive care will add protein supplements when appropriate PICC/TPN (6) Pleural effusion, bilateral Current Visit: Yes Status: Chronic Most recent echo 09/2017 EV/EV echocardiogram Impressions: LVEF 60-65%. Normal LV chamber size and function. Mild concentric left ventricular hypertrophy. Mild left ventricular diastolic dysfunction. Normal right ventricular structure and function. Moderately calcified aortic valve leaflets. Mild aortic regurgitation. Mild aortic stenosis. Mean gradient 16 mmHg. No evidence of pulmonary hypertension. Will continue to monitor Consult RT for aggressive pulm toileting Subjective Patient reports: still having pain, pain is less, voiding w/o difficulty, flatus , no bowel movement, nausea, vomiting, afebrile Objective Vital Signs - Last 8 Hours Temp Pulse Resp BP Pulse Ox 10/22/17 06:53 98.2 F 75 17 177/73 93 10/22/17 04:22 98.8 F 61 15 176/62 92 Intake and Output 10/21/17 10/22/17 10/22/17 23:59 07:59 15:59 Intake Total 1200 / 1200 1200 / 1200 Output Total 0 / 0 550 / 550 Balance 1200 / 1200 650 / 650 Intake: IV Fluids 1200 / 1200 1200 / 1200 0.9 % Sodium Chloride 1,000 ML 1000 / 1000 1000 / 1000 @ 85 mls/hr IVC .[id number] [facility] Rx #:[id number] Ofirmev 1,000 mg/100 ml 1,000 100 / 100 100 / 100 mg In 100 ml @ 400 mls/hr IVPB Q8HR [facility] Rx#:[id number] Zosyn 3.375 GM In 0.9 % Sodium 100 / 100 100 / 100 Chloride (Mini-Bag +) 100 ML @ 25 mls/hr IVPB Q8HR [facility] Rx#: [id number] Oral 0 / 0 0 / 0 Output: Urine 0 / 0 Catheter 550 / 550 Other: Stool Size Moderate Stool Consistency liquid Stool Color Black Weight 47.6 kg Blood Glucose* 70 65 - General physical appearance no distress (is lying on left side. states nausea continues) - ENT poor halfway - Neck Neck exam: trachea midline - Respiratory other (decreased resp effort; decreased breath sounds; she is not using her incentive spirometry) - Cardiovascular Cardiovascular exam: Present: RRR - Abdomen Abdomen: Present: bowel sounds present, soft, tender (Expected postoperative tenderness) - Incision Incision: Present: clean and dry, intact - Integumentary no growths - Neurologic normal sensation - Musculoskeletal normal posture - Psychiatric oriented to time, oriented to person, oriented to place - Labs 10/21/17 06:27 10/22/17 03:57 Diabetes panel 10/22/17 Range/Units 03:57 Sodium 139 (136-145) mEq/L Potassium 4.0 (3.5-5.1) mEq/L Chloride 115 H (98-107) mEq/L Carbon Dioxide 13 L (23-29) mEq/L BUN 29 H (8-23) mg/dL Creatinine 0.86 (0.60-1.20) mg/dL Glucose 58 L (70-105) mg/dL Calcium 8.2 L (8.6-10.3) mg/dL Calcium panel 10/22/17 Range/Units 03:57 Calcium 8.2 L (8.6-10.3) mg/dL Pituitary panel 10/22/17 Range/Units 03:57 Sodium 139 (136-145) mEq/L Potassium 4.0 (3.5-5.1) mEq/L Chloride 115 H (98-107) mEq/L Carbon Dioxide 13 L (23-29) mEq/L BUN 29 H (8-23) mg/dL Creatinine 0.86 (0.60-1.20) mg/dL Glucose 58 L (70-105) mg/dL Calcium 8.2 L (8.6-10.3) mg/dL Adrenal panel 10/22/17 Range/Units 03:57 Sodium 139 (136-145) mEq/L Potassium 4.0 (3.5-5.1) mEq/L Chloride 115 H (98-107) mEq/L Carbon Dioxide 13 L (23-29) mEq/L BUN 29 H (8-23) mg/dL Creatinine 0.86 (0.60-1.20) mg/dL Glucose 58 L (70-105) mg/dL Calcium 8.2 L (8.6-10.3) mg/dL - VTE Documentation of Mechanical Device: Intermittent pneumatic compression device Consult Discharge Plan - Plan Referrals: Keysha Gan MD [Partnered Physician] - 11/04/17 10:35 am Rocael Pelletier MD [Primary Care Provider] -
--- NOTE | 2017-10-22 09:21 | Cardiology Progress Note ---
Date of Encounter: 10/22/17 Time of Encounter: 09:20 Assessment and Plan (1) Essential hypertension Current Visit: Yes Status: Acute BP fluctuating s/p surgery. On Coreg 25mg BID and Cozaar has been increased from to 50mg daily. Still required PRN IV antihypertensives. Received IV Lopressor this AM. Continue PRN IV BB and Hydralazine. Renal function normal s/p ARB increase. Further increase Cozaar to 100mg daily today. Continue BB. Yesterday Dr. Pollock preferred waiting another 24 hours to see if Norvasc 5mg daily was needed. BP remains hypertensive at times. Will add Norvasc 5mg to start today. Re-evaluate later today. (2) PAF (paroxysmal atrial fibrillation) Current Visit: Yes Status: Acute Self reported hx of A-Fib. Reviewed outpt cardiology encounter with Dr. Mortensen. Pt has never had confirmed A-Fib. Previously on Coumadin and Xarelto for DVT, developed GI bleed. SR on telemetry. Reports palpitations each morning. Appears SR with PACs. Continue BB. TTE 09/16/17 LVEF 60-65%. Normal LV chamber size and function. Mild cLVH. Mild LVDD. Moderately calcified aortic valve leaflets. Mild AR. Mild . Mean gradient 16 mmHg. No evidence of pulmonary hypertension. Discussion w patient/family: The assessment and plan as outlined above was discussed with the patient and/or family members who expressed understanding and agreement. All questions were answered. Thank you for involving us in the care of your patient. Please call with any questions. I will discuss all the above with Dr. Ruiz and make changes as necessary. Subjective Principal diagnosis: PAF, HTN Interval history: BP up to 170s this AM. Increased Losartan to 50mg daily yesterday. Renal function normal. Pt reports palpitations this AM. Pt is SR PACs. She denies abdominal pain or chest pain. Received IV lopressor this AM for HTN. Objective Vital Signs, Last 4 Hours Temp Pulse Resp BP Pulse Ox 10/22/17 06:53 98.2 F 75 17 177/73 93 Vital Signs Temp Pulse Resp BP Pulse Ox 10/22/17 06:53 98.2 F 75 17 177/73 93 10/22/17 04:22 98.8 F 61 15 176/62 92 10/22/17 00:01 98.2 F 58 16 149/72 92 10/21/17 20:11 98.5 F 72 15 145/55 91 10/21/17 14:03 98.5 F 71 16 160/65 93 10/21/17 13:23 152/67 10/21/17 11:00 98.0 F 63 16 174/66 93 Intake and Output 10/21/17 10/22/17 10/22/17 23:59 07:59 15:59 Intake Total 1200 / 1200 1200 / 1200 Output Total 0 / 0 550 / 550 Balance 1200 / 1200 650 / 650 Intake: IV Fluids 1200 / 1200 1200 / 1200 0.9 % Sodium Chloride 1,000 ML 1000 / 1000 1000 / 1000 @ 85 mls/hr IVC .[id number] [facility] Rx #:[id number] Ofirmev 1,000 mg/100 ml 1,000 100 / 100 100 / 100 mg In 100 ml @ 400 mls/hr IVPB Q8HR [facility] Rx#:[id number] Zosyn 3.375 GM In 0.9 % Sodium 100 / 100 100 / 100 Chloride (Mini-Bag +) 100 ML @ 25 mls/hr IVPB Q8HR [facility] Rx#: [id number] Oral 0 / 0 0 / 0 Output: Urine 0 / 0 Catheter 550 / 550 Other: Meal NPO Stool Size Moderate Stool Consistency liquid Stool Color Black Weight 47.6 kg Blood Glucose* 70 65 General: Conversant, No Apparent Distress HEENT: Atraumatic, Normocephaly, Mucus Membranes Moist Neck: No JVD, Normal carotid pulses Cardiac: Reg Rate and Rhythm, Normal S1 and S2, No Murmur Lungs: Normal Breath Sounds, No Wheeze, Rales, Rhonchi Neuro: Alert and responsive, No focal deficits noted Abdomen: Soft, Non-Tender Skin: No rashes noted on visualized skin Musculoskeletal: No Chest Wall Tenderness Extremities: No Clubbing, No Cyanosis, No Edema, Normal Pulses Results 10/21/17 06:27 10/22/17 03:57 Lab Results 10/22/17 03:57 Sodium 139 Potassium 4.0 Chloride 115 H Carbon Dioxide 13 L BUN 29 H Creatinine 0.86 Glucose 58 L Calcium 8.2 L BMP 10/22/17 Range/Units 03:57 Sodium 139 (136-145) mEq/L Potassium 4.0 (3.5-5.1) mEq/L Chloride 115 H (98-107) mEq/L Carbon Dioxide 13 L (23-29) mEq/L BUN 29 H (8-23) mg/dL Creatinine 0.86 (0.60-1.20) mg/dL Glucose 58 L (70-105) mg/dL Calcium 8.2 L (8.6-10.3) mg/dL Active Medications Albuterol/Ipratropium (Duoneb) 3 ml IH Q6H PRN PRN Reason: Shortness Of Breath Stop: 04/20/18 18:37 Amlodipine Besylate (Norvasc) 5 mg PO DAILY [facility] PRN Reason: Protocol Stop: 04/23/18 09:01 Carvedilol (Coreg) 25 mg PO BIDWM [facility] PRN Reason: Protocol Stop: 04/18/18 17:01 Last Admin: 10/21/17 17:14 Dose: 25 mg Heparin Sodium (Porcine) (Heparin) 5,000 unit SQ Q12HCO [facility] Stop: 04/21/18 18:01 Last Admin: 10/22/17 05:59 Dose: 5,000 unit Hydralazine HCl (Hydralazine) 10 mg IVP Q6H PRN PRN Reason: Hypertension Stop: 04/20/18 18:37 Last Admin: 10/21/17 12:20 Dose: 10 mg Sodium Chloride (0.9 % Sodium Chloride) 1,000 mls @ 85 mls/hr IVC .[id number] [facility] Stop: 04/19/18 18:16 Last Admin: 10/22/17 05:58 Dose: 85 mls/hr Acetaminophen (Ofirmev 1,000 Mg/100 Ml) 1,000 mg in 100 mls @ 400 mls/hr IVPB Q8HR [facility] Stop: 04/21/18 00:01 Last Infusion: 10/22/17 00:14 Dose: Infused Piperacillin Sod/Tazobactam (Sod 3.375 gm/ Sodium Chloride) 100 mls @ 25 mls/ hr IVPB Q8HR [facility] Stop: 04/22/18 16:01 Last Infusion: 10/22/17 04:42 Dose: Infused Levothyroxine Sodium (Synthroid) 112 mcg PO DAILY@0630 [facility] Stop: 04/19/18 06:31 Last Admin: 10/22/17 06:04 Dose: 112 mcg Lorazepam (Ativan) 0.5 mg PO TID PRN PRN Reason: Anxiety Stop: 04/18/18 14:15 Last Admin: 10/21/17 00:29 Dose: 0.5 mg Losartan Potassium (Cozaar) 100 mg PO DAILY [facility] PRN Reason: Protocol Stop: 04/23/18 09:01 Metoclopramide HCl (Reglan) 10 mg IVP Q6HR [facility] Stop: 10/23/17 12:01 Last Admin: 10/22/17 05:58 Dose: 10 mg Metoprolol Tartrate (Lopressor) 7.5 mg IVP Q6H PRN PRN Reason: Hypertension Stop: 04/20/18 18:37 Last Admin: 10/22/17 04:54 Dose: 7.5 mg Naloxone HCl (Narcan) 0.4 mg IVP Q2MIN PRN PRN Reason: SEE COMMENTS Stop: 04/18/18 13:04 Ondansetron HCl (Zofran) 4 mg IVP Q4H PRN PRN Reason: Nausea And Vomiting Stop: 04/20/18 18:37 Oxycodone HCl (Oxycodone Oral Conc) 2.5 mg SL Q4H PRN; Protocol PRN Reason: Pain Stop: 04/20/18 18:37 Pantoprazole Sodium (Protonix) 40 mg IVP DAILY [facility] Stop: 04/23/18 09:01 Sertraline HCl (Zoloft) 25 mg PO DAILY [facility] Stop: 04/19/18 09:01 Last Admin: 10/21/17 09:37 Dose: 25 mg Simethicone (Gas-X) 80 mg PO TID PRN PRN Reason: Dyspepsia Stop: 04/23/18 08:40 - EKG Interpretation EKG results cardiology: other (12 hr tele AVG HR 68, SR PACs) - VTE Documentation of Mechanical Device: Intermittent pneumatic compression device Consult Discharge Plan - Plan Referrals: Keysha Gan MD [Partnered Physician] - 11/04/17 10:35 am Rocael Pelletier MD [Primary Care Provider] -
[2017-10-22] MEDS: amLODIPine 5 MG TABLET PO SCH (09:35)
[2017-10-22] MEDS: Pantoprazole 40 MG VIAL IVP SCH (09:39)
[2017-10-22] MEDS: Acetaminophen IV 1,000 MG/100 ML INFUS..BTL IVPB SCH ×3 (09:40→23:55)
[2017-10-22] MEDS: Piperacillin/Tazobactam 3.375 GM in 0.9 % Sodium Chloride Mini Bag 100 ML IVPB SCH ×3 (09:40→23:56)
[2017-10-22 12:09] LABS: Basophils % 0.4 %; Eosinophils # 0.1 K/mcL (0.0-0.6); Eosinophils % 2.1 %; Hematocrit 37.4 % (35.3-44.9); Immature Granulocytes % 0.5 % (0-4); Lymphocytes # 0.8 K/mcL (0.6-4.6); Lymphocytes % 14.9 %; Mean Corpuscular HGB Conc 32.1 g/dL (31.6-35.5); Mean Corpuscular Hemoglobin 29.1 pg (28.0-33.3); Mean Corpuscular Volume 90.8 fL (83.0-100.0); Monocytes # 0.3 K/mcL (0.0-1.3); Monocytes % 5.3 %; Neutrophils # 4.3 K/mcL (1.6-8.9); Platelet Count 145 K/mcL (140-400); Red Blood Count 4.12 M/mcL (3.82-4.97); Red Cell Distribution Width 14.7 % (11.5-14.5); Segmented Neutrophils % 76.8 %
[2017-10-22 12:31] LABS: Albumin 2.9 g/dL (3.5-5.7); Magnesium 1.8 mg/dL (1.6-2.6); Phosphorous 2.4 mg/dL (2.7-4.5)
[2017-10-22] MEDS ORDERED: D10% in Water 500 ML IVC PRN (12:39)
[2017-10-22] MEDS ORDERED: 0.9 % Sodium Chloride Mini Bag 100 ML ONE (16:22)
[2017-10-22] MEDS ORDERED: Clinimix E 5%-15% SOLUTION 2,000 ML with MVI, adult with vitamin K 10 ML IVC SCH (17:00)
[2017-10-22] MEDS ORDERED: 0.9 % Sodium Chloride 1,000 ML IVC SCH (21:00)
[2017-10-22] MEDS: *HR* LORazepam 0.5 MG TABLET PO PRN (22:27)
[2017-10-23 03:52] LABS: Basophils % 0.5 %; Eosinophils # 0.6 K/mcL (0.0-0.6); Eosinophils % 8.8 %; Hematocrit 34.9 % (35.3-44.9); Hemoglobin 11.7 g/dL (11.5-15.4); Immature Granulocytes % 0.8 % (0-4); Lymphocytes # 0.8 K/mcL (0.6-4.6); Lymphocytes % 12.2 %; Mean Corpuscular HGB Conc 33.5 g/dL (31.6-35.5); Mean Corpuscular Hemoglobin 29.8 pg (28.0-33.3); Mean Platelet Volume 10.1 fL (9.4-12.4); Monocytes # 0.5 K/mcL (0.0-1.3); Monocytes % 7.1 %; Neutrophils # 4.6 K/mcL (1.6-8.9); Platelet Count 136 K/mcL (140-400); Red Blood Count 3.92 M/mcL (3.82-4.97); Red Cell Distribution Width 14.6 % (11.5-14.5); Segmented Neutrophils % 70.6 %
[2017-10-23 04:14] LABS: BUN/Creatinine Ratio 27 (6-26); Blood Urea Nitrogen 20 mg/dL (8-23); Calcium 8.1 mg/dL (8.6-10.3); Carbon Dioxide 22 mEq/L (23-29); Chloride 111 mEq/L (98-107); Glucose 171 mg/dL (70-105); Magnesium 1.8 mg/dL (1.6-2.6); Osmolality,Calculated 295 (280-300); Phosphorous 1.8 mg/dL (2.7-4.5); Potassium 3.3 mEq/L (3.5-5.1); Sodium 139 mEq/L (136-145); eGFR For Non-African Americans > 60 (> 60)
[2017-10-23] MEDS: Metoclopramide 10 MG/2 ML VIAL IVP SCH ×2 (06:23→11:24)
[2017-10-23] MEDS: *HR* Heparin 5,000 UNIT/ML VIAL SQ SCH ×2 (06:23→17:31)
[2017-10-23] MEDS: Pantoprazole 40 MG VIAL IVP SCH (07:19)
[2017-10-23] MEDS: Acetaminophen IV 1,000 MG/100 ML INFUS..BTL IVPB SCH ×3 (07:19→23:56)
[2017-10-23] MEDS: amLODIPine 5 MG TABLET PO SCH (07:27)
[2017-10-23] MEDS: Piperacillin/Tazobactam 3.375 GM in 0.9 % Sodium Chloride Mini Bag 100 ML IVPB SCH (07:31)
--- NOTE | 2017-10-23 09:45 | General Surgery Progress Note ---
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 (2) HTN (hypertension) Current Visit: No Status: Chronic constuled cardiology for management Qualifiers: Hypertension type: essential hypertension Qualified Code(s): I10 - Essential (primary) hypertension (3) Atrial fibrillation Current Visit: No Status: Chronic Qualifiers: Atrial fibrillation type: paroxysmal Qualified Code(s): I48.0 - Paroxysmal atrial fibrillation (4) Hypothyroidism Current Visit: No Status: Chronic continue home medication Qualifiers: Hypothyroidism type: unspecified Qualified Code(s): E03.9 - Hypothyroidism , unspecified (5) Protein-calorie malnutrition, moderate Current Visit: Yes Status: Chronic TPN until adequate po intkae Subjective Patient reports: no new complaints, feels better, pain is less, flatus, bowel movement, afebrile Objective Vital Signs - Last 8 Hours Temp Pulse Resp BP Pulse Ox 10/23/17 08:32 95 10/23/17 07:13 98.7 F 58 16 108/67 95 10/23/17 04:36 98.2 F 72 16 195/82 92 Intake and Output 10/22/17 10/23/17 10/23/17 23:59 07:59 15:59 Intake Total 1300 / 1300 1520 / 1520 200 / 200 Balance 1300 / 1300 1520 / 1520 200 / 200 Intake: IV Fluids 1300 / 1300 1520 / 1520 200 / 200 0.9 % Sodium Chloride 1,000 ML 1000 / 1000 400 / 400 200 / 200 @ 85 mls/hr IVC .[id number] [facility] Rx #:[id number] Clinimix E 5%-15% SOLUTION 2, 570 / 570 000 ML @ 40 mls/hr IVC .Q24H [facility] with M.v.i. Adult 10 ml Rx# :[id number] Ofirmev 1,000 mg/100 ml 1,000 100 / 100 200 / 200 mg In 100 ml @ 400 mls/hr IVPB Q8HR [facility] Rx#:[id number] Intralipid 20% 250 ML @ 21 mls/ 250 / 250 hr IVPB DAILY@1700 [facility] Rx#: [id number] Zosyn 3.375 GM In 0.9 % Sodium 200 / 200 100 / 100 Chloride (Mini-Bag +) 100 ML @ 25 mls/hr IVPB Q8HR [facility] Rx#: [id number] Oral 0 / 0 0 / 0 Other: Meal npo Percent of Meal Consumed 0% Stool Size Small Small Stool Consistency liquid liquid Stool Color Yellow Yellow Green Green # Urine Diapers 1 1 # Bowel Movement Diapers 1 1 Weight 50.9 kg Blood Glucose* 137 164 Patient Weight 10/23/17 23:59 Weight 50.9 kg - General physical appearance well developed, cachectic, chronically ill - Eyes normal ocular movement - ENT normal mucosa - Neck Neck exam: trachea midline - Respiratory normal expansion, clear to auscultation - Cardiovascular Cardiovascular exam: Present: RRR - Abdomen Abdomen: Present: bowel sounds present, soft, tender (appropriate post op tenderness) - Incision Incision: Present: clean and dry, intact - Integumentary no growths, no abnormal pigmentation - Neurologic normal sensation - Musculoskeletal normal gait, normal posture - Psychiatric oriented to time, oriented to person, oriented to place, speech is normal, memory intact - Labs 10/23/17 03:30 10/23/17 03:30 Diabetes panel 10/22/17 10/23/17 Range/Units 11:30 03:30 Sodium 139 (136-145) mEq/L Potassium 3.3 L (3.5-5.1) mEq/L Chloride 111 H (98-107) mEq/L Carbon Dioxide 22 L (23-29) mEq/L BUN 20 (8-23) mg/dL Creatinine 0.73 (0.60-1.20) mg/dL Glucose 171 H (70-105) mg/dL Calcium 8.1 L (8.6-10.3) mg/dL Albumin 2.9 L (3.5-5.7) g/dL Calcium panel 10/22/17 10/23/17 Range/Units 11:30 03:30 Calcium 8.1 L (8.6-10.3) mg/dL Phosphorus 2.4 L 1.8 L (2.7-4.5) mg/dL Albumin 2.9 L (3.5-5.7) g/dL Pituitary panel 10/23/17 Range/Units 03:30 Sodium 139 (136-145) mEq/L Potassium 3.3 L (3.5-5.1) mEq/L Chloride 111 H (98-107) mEq/L Carbon Dioxide 22 L (23-29) mEq/L BUN 20 (8-23) mg/dL Creatinine 0.73 (0.60-1.20) mg/dL Glucose 171 H (70-105) mg/dL Calcium 8.1 L (8.6-10.3) mg/dL Adrenal panel 10/22/17 10/23/17 Range/Units 11:30 03:30 Sodium 139 (136-145) mEq/L Potassium 3.3 L (3.5-5.1) mEq/L Chloride 111 H (98-107) mEq/L Carbon Dioxide 22 L (23-29) mEq/L BUN 20 (8-23) mg/dL Creatinine 0.73 (0.60-1.20) mg/dL Glucose 171 H (70-105) mg/dL Calcium 8.1 L (8.6-10.3) mg/dL Albumin 2.9 L (3.5-5.7) g/dL - VTE Documentation of Mechanical Device: Graduated compression elastic hosiery Consult Discharge Plan - Plan Referrals: Keysha Gan MD [Partnered Physician] - 11/04/17 10:35 am Rocael Pelletier MD [Primary Care Provider] -
--- NOTE | 2017-10-23 11:22 | Cardiology Progress Note ---
Date of Encounter: 10/23/17 Time of Encounter: 11:20 Assessment and Plan (1) Essential hypertension Current Visit: Yes Status: Acute BP fluctuating s/p surgery. On Coreg 25mg BID, Cozaar has been increased to 100mg daily and have added Norvasc 5mg daily. Still required PRN IV antihypertensives. Received IV Lopressor and Hydralazine this AM. Continue PRN IV BB and Hydralazine. Renal function normal s/p ARB increase. Anticipate it will take a few days for the increased/added antihypertensives to take full effect. Cardiology signing off. Reconsult PRN. If BP remains elevated in upcoming days, can increase Norvasc to 10mg daily. (2) PAF (paroxysmal atrial fibrillation) Current Visit: Yes Status: Acute Self reported hx of A-Fib. Reviewed outpt cardiology encounter with Dr. Mortensen. Pt has never had confirmed A-Fib. Previously on Coumadin and Xarelto for DVT, developed GI bleed. SR on telemetry. Reports palpitations each morning. Appears SR with PACs. Continue BB. TTE 09/16/17 LVEF 60-65%. Normal LV chamber size and function. Mild cLVH. Mild LVDD. Moderately calcified aortic valve leaflets. Mild AR. Mild . Mean gradient 16 mmHg. No evidence of pulmonary hypertension. Discussion w patient/family: The assessment and plan as outlined above was discussed with the patient and/or family members who expressed understanding and agreement. All questions were answered. Thank you for involving us in the care of your patient. Please call with any questions. I will discuss all the above with Dr. Pollock and make changes as necessary. Subjective Principal diagnosis: PAF, HTN Interval history: BP up to 190s this AM 0400. Received IV Lopressor and IV Hydralazine. Yesterday , increased Losartan to 100mg daily and added Norvasc 5mg daily. No acute complaints currently. Objective Vital Signs, Last 4 Hours Pulse Ox 10/23/17 08:32 95 Vital Signs Temp Pulse Resp BP Pulse Ox 10/23/17 08:32 95 10/23/17 07:13 98.7 F 58 16 108/67 95 10/23/17 04:36 98.2 F 72 16 195/82 92 10/23/17 00:30 98.2 F 69 15 155/56 94 08/16/18 18:57 98.1 F 68 15 181/68 92 10/22/17 15:53 97.9 F 64 17 169/78 95 Intake and Output 10/22/17 10/23/17 10/23/17 23:59 07:59 15:59 Intake Total 1300 / 1300 1520 / 1520 200 / 200 Balance 1300 / 1300 1520 / 1520 200 / 200 Intake: IV Fluids 1300 / 1300 1520 / 1520 200 / 200 0.9 % Sodium Chloride 1,000 ML 1000 / 1000 400 / 400 200 / 200 @ 85 mls/hr IVC .[id number] [facility] Rx #:[id number] Clinimix E 5%-15% SOLUTION 2, 570 / 570 000 ML @ 40 mls/hr IVC .Q24H [facility] with M.v.i. Adult 10 ml Rx# :[id number] Ofirmev 1,000 mg/100 ml 1,000 100 / 100 200 / 200 mg In 100 ml @ 400 mls/hr IVPB Q8HR [facility] Rx#:[id number] Intralipid 20% 250 ML @ 21 mls/ 250 / 250 hr IVPB DAILY@1700 [facility] Rx#: [id number] Zosyn 3.375 GM In 0.9 % Sodium 200 / 200 100 / 100 Chloride (Mini-Bag +) 100 ML @ 25 mls/hr IVPB Q8HR [facility] Rx#: [id number] Oral 0 / 0 0 / 0 Other: Meal npo Percent of Meal Consumed 0% Stool Size Small Small Stool Consistency liquid liquid Stool Color Yellow Yellow Green Green # Urine Diapers 1 1 # Bowel Movement Diapers 1 1 Weight 50.9 kg Blood Glucose* 137 164 164 Patient Weight 10/23/17 23:59 Weight 50.9 kg General: Conversant, No Apparent Distress HEENT: Atraumatic, Normocephaly, Mucus Membranes Moist Neck: No JVD, Normal carotid pulses Cardiac: Reg Rate and Rhythm, Normal S1 and S2, No Murmur Lungs: Normal Breath Sounds, No Wheeze, Rales, Rhonchi Neuro: Alert and responsive, No focal deficits noted Abdomen: Soft, Non-Tender Skin: No rashes noted on visualized skin Musculoskeletal: No Chest Wall Tenderness Extremities: No Clubbing, No Cyanosis, No Edema, Normal Pulses Results 10/23/17 03:30 10/23/17 03:30 Lab Results 10/22/17 10/22/17 10/23/17 11:30 11:30 03:30 WBC 5.7 6.5 Hgb 12.0 11.7 Hct 37.4 34.9 L Plt Count 145 136 L Sodium Potassium Chloride Carbon Dioxide BUN Creatinine Glucose Calcium Magnesium 1.8 10/23/17 03:30 WBC Hgb Hct Plt Count Sodium 139 Potassium 3.3 L Chloride 111 H Carbon Dioxide 22 L BUN 20 Creatinine 0.73 Glucose 171 H Calcium 8.1 L Magnesium 1.8 Active Medications Albuterol/Ipratropium (Duoneb) 3 ml IH Q6H PRN PRN Reason: Shortness Of Breath Stop: 04/20/18 18:37 Amlodipine Besylate (Norvasc) 5 mg PO DAILY [facility] PRN Reason: Protocol Stop: 04/23/18 09:01 Last Admin: 10/23/17 07:27 Dose: 5 mg Carvedilol (Coreg) 25 mg PO BIDWM [facility] PRN Reason: Protocol Stop: 04/18/18 17:01 Last Admin: 10/23/17 07:28 Dose: 25 mg Heparin Sodium (Porcine) (Heparin) 5,000 unit SQ Q12HCO [facility] Stop: 04/21/18 18:01 Last Admin: 10/23/17 06:23 Dose: 5,000 unit Hydralazine HCl (Hydralazine) 10 mg IVP Q6H PRN PRN Reason: Hypertension Stop: 04/20/18 18:37 Last Admin: 10/23/17 06:22 Dose: 10 mg Acetaminophen (Ofirmev 1,000 Mg/100 Ml) 1,000 mg in 100 mls @ 400 mls/hr IVPB Q8HR [facility] Stop: 04/21/18 00:01 Last Infusion: 10/23/17 07:34 Dose: Infused Dextrose (Dextrose 10% Water 500 Ml Ivbag) 500 mls @ 50 mls/hr IVC .Q10H PRN PRN Reason: TPN delayed or interrupted Stop: 04/23/18 12:40 Fat Emulsion Intravenous (Intralipid 20%) 250 mls @ 21 mls/hr IVPB DAILY@1700 [facility] Stop: 04/23/18 17:01 Last Infusion: 10/23/17 04:35 Dose: Infused Multivitamins 10 ml/ Amino (Acids/Electrolytes) 2,010 mls @ 40 mls/hr IVC .Q24H [facility] PRN Reason: Protocol Stop: 10/23/17 16:59 Last Titration: 10/23/17 07:33 Dose: 40 mls/hr Sodium Chloride (0.9 % Sodium Chloride) 1,000 mls @ 25 mls/hr IVC .Q24H [facility] Stop: 04/23/18 21:01 Last Infusion: 10/23/17 07:26 Dose: 25 mls/hr Potassium Phosphate 22 meq/ (Sodium Chloride) 255 mls @ 40 mls/hr IVPB ONCE ONE Stop: 10/23/17 16:04 Last Admin: 10/23/17 10:53 Dose: 40 mls/hr Multivitamins 10 ml/ Insulin Human Regular / Phytonadione /Amino Acids/ Electrolytes/Amino Acids 2,010 mls @ 40 mls/hr IVC .Q24H [facility] PRN Reason: Protocol Stop: 10/24/17 16:59 Multivitamins 10 ml/ Insulin Human Regular / Phytonadione /Amino Acids/ Electrolytes/Amino Acids 2,010 mls @ 45 mls/hr IVC .Q24H [facility] PRN Reason: Protocol Stop: 10/25/17 17:01 Multivitamins 10 ml/ Insulin Human Regular / Phytonadione /Amino Acids/ Electrolytes/Amino Acids 2,010 mls @ 45 mls/hr IVC .Q24H [facility] PRN Reason: Protocol Stop: 10/26/17 17:01 Levothyroxine Sodium (Synthroid) 112 mcg PO DAILY@0630 [facility] Stop: 04/19/18 06:31 Last Admin: 10/23/17 06:23 Dose: 112 mcg Lorazepam (Ativan) 0.5 mg PO TID PRN PRN Reason: Anxiety Stop: 04/18/18 14:15 Last Admin: 10/22/17 22:27 Dose: 0.5 mg Losartan Potassium (Cozaar) 100 mg PO DAILY [facility] PRN Reason: Protocol Stop: 04/23/18 09:01 Last Admin: 10/23/17 07:27 Dose: 100 mg Metoclopramide HCl (Reglan) 10 mg IVP Q6HR [facility] Stop: 10/23/17 12:01 Last Admin: 10/23/17 06:23 Dose: 10 mg Metoprolol Tartrate (Lopressor) 7.5 mg IVP Q6H PRN PRN Reason: Hypertension Stop: 04/20/18 18:37 Last Admin: 10/22/17 04:54 Dose: 7.5 mg Naloxone HCl (Narcan) 0.4 mg IVP Q2MIN PRN PRN Reason: SEE COMMENTS Stop: 04/18/18 13:04 Ondansetron HCl (Zofran) 4 mg IVP Q4H PRN PRN Reason: Nausea And Vomiting Stop: 04/20/18 18:37 Oxycodone HCl (Oxycodone Oral Conc) 2.5 mg SL Q4H PRN; Protocol PRN Reason: Pain Stop: 04/20/18 18:37 Pantoprazole Sodium (Protonix) 40 mg IVP DAILY [facility] Stop: 04/23/18 09:01 Last Admin: 10/23/17 07:19 Dose: 40 mg Sertraline HCl (Zoloft) 25 mg PO DAILY [facility] Stop: 04/19/18 09:01 Last Admin: 10/23/17 07:25 Dose: 25 mg Simethicone (Gas-X) 80 mg PO TID PRN PRN Reason: Dyspepsia Stop: 04/23/18 08:40 - EKG Interpretation EKG results cardiology: other (12 hr tele AVG HR 69, SR) - VTE Documentation of Mechanical Device: Graduated compression elastic hosiery Consult Discharge Plan - Plan Referrals: Keysha Gan MD [Partnered Physician] - 11/04/17 10:35 am Rocael Pelletier MD [Primary Care Provider] -
[2017-10-23] MEDS: 0.9 % Sodium Chloride 1,000 ML IVC SCH (16:09)
[2017-10-23] MEDS ORDERED: Clinimix E 5%-15% SOLUTION 2,000 ML with MVI, adult with vitamin K 10 ML IVC SCH (17:00)
[2017-10-23] MEDS: Ondansetron 4 MG/2 ML VIAL IVP PRN (20:13)
[2017-10-23] MEDS: *HR* Metoprolol 5 MG/5 ML VIAL IVP PRN (23:56)
[2017-10-24 02:39] LABS: Basophils % 0.3 %; Eosinophils # 0.7 K/mcL (0.0-0.6); Eosinophils % 10.3 %; Hematocrit 36.7 % (35.3-44.9); Immature Granulocytes % 0.6 % (0-4); Lymphocytes # 0.9 K/mcL (0.6-4.6); Lymphocytes % 13.4 %; Mean Corpuscular HGB Conc 32.7 g/dL (31.6-35.5); Mean Corpuscular Hemoglobin 28.5 pg (28.0-33.3); Mean Corpuscular Volume 87.2 fL (83.0-100.0); Mean Platelet Volume 10.4 fL (9.4-12.4); Monocytes # 0.4 K/mcL (0.0-1.3); Monocytes % 6.4 %; Neutrophils # 4.6 K/mcL (1.6-8.9); Platelet Count 147 K/mcL (140-400); Red Blood Count 4.21 M/mcL (3.82-4.97)
[2017-10-24 02:57] LABS: BUN/Creatinine Ratio 22 (6-26); Blood Urea Nitrogen 14 mg/dL (8-23); Calcium 8.2 mg/dL (8.6-10.3); Carbon Dioxide 25 mEq/L (23-29); Chloride 111 mEq/L (98-107); Glucose 121 mg/dL (70-105); Magnesium 1.7 mg/dL (1.6-2.6); Osmolality,Calculated 292 (280-300); Potassium 3.5 mEq/L (3.5-5.1); Sodium 140 mEq/L (136-145); eGFR For Non-African Americans > 60 (> 60)
[2017-10-24] MEDS: Ondansetron 4 MG/2 ML VIAL IVP PRN ×3 (05:50→16:55)
[2017-10-24] MEDS: *HR* Heparin 5,000 UNIT/ML VIAL SQ SCH ×2 (05:50→17:43)
[2017-10-24] MEDS: Acetaminophen IV 1,000 MG/100 ML INFUS..BTL IVPB SCH ×2 (09:33→16:55)
[2017-10-24] MEDS: amLODIPine 5 MG TABLET PO SCH (09:37)
[2017-10-24] MEDS: Pantoprazole 40 MG VIAL IVP SCH (09:37)
[2017-10-24] MEDS ORDERED: Potassium Phosphate 44 MEQ in 0.9 % Sodium Chloride 250 ML IVPB ONE (10:22)
[2017-10-24] MEDS ORDERED: Scopolamine Patch 1.5 MG PATCH.TD72 TD SCH (13:15)
[2017-10-24] MEDS: 0.9 % Sodium Chloride 1,000 ML IVC SCH (17:43)
[2017-10-24] MEDS: Clinimix E 5%-15% SOLUTION 2,000 ML with MVI, adult with vitamin K 10 ML IVC SCH (17:45)
[2017-10-25] MEDS: Acetaminophen IV 1,000 MG/100 ML INFUS..BTL IVPB SCH ×2 (00:37→08:49)
[2017-10-25 04:14] LABS: Basophils % 0.3 %; Eosinophils # 0.8 K/mcL (0.0-0.6); Eosinophils % 12.2 %; Hematocrit 37.8 % (35.3-44.9); Hemoglobin 12.5 g/dL (11.5-15.4); Immature Granulocytes % 0.8 % (0-4); Immature Platelets 6.5 % (1.1-6.1); Lymphocytes % 15.2 %; Mean Corpuscular HGB Conc 33.1 g/dL (31.6-35.5); Mean Corpuscular Hemoglobin 29.3 pg (28.0-33.3); Mean Corpuscular Volume 88.7 fL (83.0-100.0); Mean Platelet Volume 10.2 fL (9.4-12.4); Monocytes # 0.5 K/mcL (0.0-1.3); Monocytes % 7.2 %; Neutrophils # 4.2 K/mcL (1.6-8.9); Platelet Count 150 K/mcL (140-400); Red Blood Count 4.26 M/mcL (3.82-4.97); Segmented Neutrophils % 64.3 %
[2017-10-25 04:17] LABS: BUN/Creatinine Ratio 20 (6-26); Blood Urea Nitrogen 12 mg/dL (8-23); Calcium 8.4 mg/dL (8.6-10.3); Carbon Dioxide 27 mEq/L (23-29); Chloride 109 mEq/L (98-107); Glucose 103 mg/dL (70-105); Magnesium 1.7 mg/dL (1.6-2.6); Osmolality,Calculated 288 (280-300); Phosphorous 2.8 mg/dL (2.7-4.5); Potassium 3.8 mEq/L (3.5-5.1); Sodium 139 mEq/L (136-145); eGFR For Non-African Americans > 60 (> 60)
[2017-10-25] MEDS: *HR* Heparin 5,000 UNIT/ML VIAL SQ SCH ×2 (05:42→17:38)
[2017-10-25] MEDS: Pantoprazole 40 MG VIAL IVP SCH (08:48)
[2017-10-25] MEDS: amLODIPine 5 MG TABLET PO SCH (08:49)
--- NOTE | 2017-10-25 10:17 | General Surgery Progress Note ---
<Pearl Santos E - Last Filed: 10/25/17 12:57> Date of Encounter: 10/25/17 Time of Encounter: 10:15 - Assessment and Plan (1) Colon cancer Current Visit: Yes Status: Acute Date of procedure: 10/19/17 Pre-op diagnosis: colon cancer Post-op diagnosis: same (distal transverse) Procedure: Open/laparoscopic assisted partial transverse (distal) colectomy Complications: none immediate Anesthesia: GETA, local Local Anesthetics: 0.5% Sensorcaine HCL SubQ (cc) (25) Surgeon: Keysha Gan Patient tolerated procedure well. 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 Normal LV chamber size and function. Mild concentric left ventricular hypertrophy. Mild left ventricular diastolic dysfunction. Normal right ventricular structure and function. Moderately calcified aortic valve leaflets. Mild aortic regurgitation. Mild aortic stenosis. Mean gradient 16 mmHg. No evidence of pulmonary hypertension. Will continue to monitor (3) Protein-calorie malnutrition, moderate Current Visit: Yes Status: Chronic Continue supportive care Add protein supplements when appropriate (4) Atrial fibrillation Current Visit: No Status: Chronic ONe month episode when she was severely anemic continue home medications will continue to monitor Qualifiers: Atrial fibrillation type: paroxysmal Qualified Code(s): I48.0 - Paroxysmal atrial fibrillation (5) HTN (hypertension) Current Visit: No Status: Chronic continue Cozaar 100 mg daily Norvasc 5 mg daily Continue when necessary IV beta blockers and hydralazine as needed Qualifiers: Hypertension type: essential hypertension Qualified Code(s): I10 - Essential (primary) hypertension (6) Hypothyroidism Current Visit: No Status: Chronic continue home medications Qualifiers: Hypothyroidism type: unspecified Qualified Code(s): E03.9 - Hypothyroidism , unspecified Subjective Patient reports: feels better, flatus, bowel movement, other (Patient states she is feeling much better today, she was able to move her bowels 3 times last night, she is tolerating clear liquid diet well.) Objective Vital Signs - Last 8 Hours Temp Pulse Resp BP Pulse Ox 10/25/17 07:30 97.8 F 72 18 192/78 95 10/25/17 04:33 98.2 F 71 16 193/81 95 Intake and Output 10/24/17 10/25/17 10/25/17 23:59 07:59 15:59 Intake Total 1959 350 / 350 480 / 480 Output Total 0 / 0 0 / 0 Balance 1959 350 / 350 480 / 480 Intake: IV Fluids 1360 / 1360 350 / 350 0.9 % Sodium Chloride 1,000 ML 1000 / 1000 @ 35 mls/hr IVC .Q24H [facility] Rx#: [id number] Ofirmev 1,000 mg/100 ml 1,000 100 / 100 100 / 100 mg In 100 ml @ 400 mls/hr IVPB Q8HR [facility] Rx#:[id number] Intralipid 20% 250 ML @ 21 mls/ 250 / 250 hr IVPB DAILY@1700 [facility] Rx#: [id number] Potassium Phosphate 44 MEQ In 0 260 / 260 .9 % Sodium Chloride 250 ML @ 40 mls/hr IVPB ONCE ONE Rx#: [id number] Oral 600 / 600 0 / 0 480 / 480 Output: Urine 0 / 0 0 / 0 Other: Meal Clears Breakfast Percent of Meal Consumed 100% Stool Size Large Stool Consistency loose Stool Characteristics Normal for Patient Stool Color Green # Urine Diapers 1 1 1 # Bowel Movement Diapers 0 1 Weight 56.9 kg Blood Glucose* 113 104 - General physical appearance well developed, well nourished, no distress - Respiratory normal expansion, normal respiratory effort, clear to auscultation - Cardiovascular Cardiovascular exam: Present: RRR, no murmurs/rubs/gallops - Abdomen Abdomen: Present: bowel sounds present, soft, non tender - Incision Incision: Present: clean and dry, intact - Musculoskeletal normal posture - Psychiatric oriented to time, oriented to person, oriented to place - Labs 10/25/17 03:25 10/25/17 03:25 Diabetes panel 10/25/17 Range/Units 03:25 Sodium 139 (136-145) mEq/L Potassium 3.8 (3.5-5.1) mEq/L Chloride 109 H (98-107) mEq/L Carbon Dioxide 27 (23-29) mEq/L BUN 12 (8-23) mg/dL Creatinine 0.61 (0.60-1.20) mg/dL Glucose 103 (70-105) mg/dL Calcium 8.4 L (8.6-10.3) mg/dL Calcium panel 10/25/17 Range/Units 03:25 Calcium 8.4 L (8.6-10.3) mg/dL Phosphorus 2.8 (2.7-4.5) mg/dL Pituitary panel 10/25/17 Range/Units 03:25 Sodium 139 (136-145) mEq/L Potassium 3.8 (3.5-5.1) mEq/L Chloride 109 H (98-107) mEq/L Carbon Dioxide 27 (23-29) mEq/L BUN 12 (8-23) mg/dL Creatinine 0.61 (0.60-1.20) mg/dL Glucose 103 (70-105) mg/dL Calcium 8.4 L (8.6-10.3) mg/dL Adrenal panel 10/25/17 Range/Units 03:25 Sodium 139 (136-145) mEq/L Potassium 3.8 (3.5-5.1) mEq/L Chloride 109 H (98-107) mEq/L Carbon Dioxide 27 (23-29) mEq/L BUN 12 (8-23) mg/dL Creatinine 0.61 (0.60-1.20) mg/dL Glucose 103 (70-105) mg/dL Calcium 8.4 L (8.6-10.3) mg/dL - VTE Documentation of Mechanical Device: Intermittent pneumatic compression device Consult Discharge Plan - Plan Referrals: Keysha Gan MD [Partnered Physician] - 11/04/17 10:35 am Rocael Pelletier MD [Primary Care Provider] - <Nam Dong - Last Filed: 10/25/17 15:42> Date of Encounter: 10/25/17 Objective Vital Signs - Last 8 Hours Temp Pulse Resp BP Pulse Ox 10/25/17 14:32 98.9 F 69 16 177/85 94 10/25/17 10:35 98.5 F 64 14 169/72 95 Intake and Output 10/24/17 10/25/17 10/25/17 23:59 07:59 15:59 Intake Total 1959 350 / 350 700 / 700 Output Total 0 / 0 0 / 0 Balance 1960 / 1960 350 / 350 700 / 700 Intake: IV Fluids 1360 / 1360 350 / 350 100 / 100 0.9 % Sodium Chloride 1,000 ML 1000 / 1000 @ 35 mls/hr IVC .Q24H [facility] Rx#: [id number] Ofirmev 1,000 mg/100 ml 1,000 100 / 100 100 / 100 100 / 100 mg In 100 ml @ 400 mls/hr IVPB Q8HR [facility] Rx#:[id number] Intralipid 20% 250 ML @ 21 mls/ 250 / 250 hr IVPB DAILY@1700 [facility] Rx#: [id number] Potassium Phosphate 44 MEQ In 0 260 / 260 .9 % Sodium Chloride 250 ML @ 40 mls/hr IVPB ONCE ONE Rx#: [id number] Oral 600 / 600 0 / 0 600 / 600 Output: Urine 0 / 0 0 / 0 Other: Meal Clears Clears Percent of Meal Consumed 0% Stool Size Large Stool Consistency loose Stool Characteristics Normal for Patient Stool Color Green # Urine Diapers 1 1 3 # Bowel Movement Diapers 0 1 Weight 56.9 kg Blood Glucose* 113 104 117 - Labs 10/25/17 03:25 10/25/17 03:25 Diabetes panel 10/25/17 Range/Units 03:25 Sodium 139 (136-145) mEq/L Potassium 3.8 (3.5-5.1) mEq/L Chloride 109 H (98-107) mEq/L Carbon Dioxide 27 (23-29) mEq/L BUN 12 (8-23) mg/dL Creatinine 0.61 (0.60-1.20) mg/dL Glucose 103 (70-105) mg/dL Calcium 8.4 L (8.6-10.3) mg/dL Calcium panel 10/25/17 Range/Units 03:25 Calcium 8.4 L (8.6-10.3) mg/dL Phosphorus 2.8 (2.7-4.5) mg/dL Pituitary panel 10/25/17 Range/Units 03:25 Sodium 139 (136-145) mEq/L Potassium 3.8 (3.5-5.1) mEq/L Chloride 109 H (98-107) mEq/L Carbon Dioxide 27 (23-29) mEq/L BUN 12 (8-23) mg/dL Creatinine 0.61 (0.60-1.20) mg/dL Glucose 103 (70-105) mg/dL Calcium 8.4 L (8.6-10.3) mg/dL Adrenal panel 10/25/17 Range/Units 03:25 Sodium 139 (136-145) mEq/L Potassium 3.8 (3.5-5.1) mEq/L Chloride 109 H (98-107) mEq/L Carbon Dioxide 27 (23-29) mEq/L BUN 12 (8-23) mg/dL Creatinine 0.61 (0.60-1.20) mg/dL Glucose 103 (70-105) mg/dL Calcium 8.4 L (8.6-10.3) mg/dL - Attending Attestation I examined this patient and my medical decision-making was reviewed with the Resident Physician. I agree with the documented findings, disposition and treatment plan as described except to the extent set forth below. I reviewed the above assessment and evaluation agree with the above plan. Patient's nausea has improved. Tolerating clear liquids and desires for advancement of her diet. We will advance to full liquids.
[2017-10-25] MEDS: Ondansetron 4 MG/2 ML VIAL IVP PRN (15:49)
[2017-10-25] MEDS ORDERED: Clinimix E 5%-15% SOLUTION 2,000 ML with MVI, adult with vitamin K 10 ML IVC SCH (17:00)
[2017-10-25] MEDS: Clinimix E 5%-15% SOLUTION 2,000 ML with MVI, adult with vitamin K 10 ML IVC SCH (17:42)
[2017-10-25] MEDS: 0.9 % Sodium Chloride 1,000 ML IVC SCH (20:13)
[2017-10-26 03:55] LABS: Basophils % 0.6 %; Eosinophils # 0.7 K/mcL (0.0-0.6); Eosinophils % 9.6 %; Hematocrit 38.4 % (35.3-44.9); Hemoglobin 12.6 g/dL (11.5-15.4); Immature Granulocytes % 0.7 % (0-4); Lymphocytes % 14.6 %; Mean Corpuscular HGB Conc 32.8 g/dL (31.6-35.5); Mean Corpuscular Volume 88.5 fL (83.0-100.0); Mean Platelet Volume 10.2 fL (9.4-12.4); Monocytes # 0.5 K/mcL (0.0-1.3); Monocytes % 7.6 %; Neutrophils # 4.6 K/mcL (1.6-8.9); Platelet Count 126 K/mcL (140-400); Red Blood Count 4.34 M/mcL (3.82-4.97); Red Cell Distribution Width 14.9 % (11.5-14.5); Segmented Neutrophils % 66.9 %
[2017-10-26 04:14] LABS: BUN/Creatinine Ratio 23 (6-26); Blood Urea Nitrogen 14 mg/dL (8-23); Calcium 8.7 mg/dL (8.6-10.3); Carbon Dioxide 28 mEq/L (23-29); Chloride 109 mEq/L (98-107); Glucose 95 mg/dL (70-105); Magnesium 1.8 mg/dL (1.6-2.6); Osmolality,Calculated 290 (280-300); Phosphorous 2.4 mg/dL (2.7-4.5); Sodium 140 mEq/L (136-145); eGFR For Non-African Americans > 60 (> 60)
[2017-10-26] MEDS: *HR* Heparin 5,000 UNIT/ML VIAL SQ SCH (06:42)
[2017-10-26] MEDS: Pantoprazole 40 MG VIAL IVP SCH (07:23)
[2017-10-26] MEDS: amLODIPine 5 MG TABLET PO SCH (07:26)
[2017-10-26 10:25] VITALS: BP 157/70
[2017-10-26] MEDS ORDERED: Ondansetron ODT 4 MG TAB.RAPDIS SL PRN (10:34)
--- NOTE | 2017-10-26 10:41 | Discharge Summary ---
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 (2) HTN (hypertension) Priority: Secondary Status: Chronic Qualifiers: Hypertension type: essential hypertension Qualified Code(s): I10 - Essential (primary) hypertension (3) Atrial fibrillation Priority: Secondary Status: Chronic Qualifiers: Atrial fibrillation type: paroxysmal Qualified Code(s): I48.0 - Paroxysmal atrial fibrillation (4) Hypothyroidism Priority: Secondary Status: Chronic Qualifiers: Hypothyroidism type: unspecified Qualified Code(s): E03.9 - Hypothyroidism , unspecified (5) Protein-calorie malnutrition, moderate Priority: Secondary Status: Chronic (6) Pleural effusion, bilateral Priority: Secondary Status: Chronic General Surgery Exam Initial Vital Signs Temp Pulse Resp BP Pulse Ox 99.5 F 80 14 130/61 94 10/17/17 10:22 10/17/17 10:22 10/17/17 10:22 10/17/17 10:22 10/17/17 10:22 Vital Signs Temp Pulse Resp BP Pulse Ox 10/26/17 10:24 98.2 F 81 16 157/70 98 10/26/17 06:44 98.3 F 72 16 197/76 96 10/25/17 23:23 98.7 F 69 16 158/65 95 10/25/17 19:32 98.3 F 64 16 140/82 95 10/25/17 14:32 98.9 F 69 16 177/85 94 Intake and Output 10/25/17 10/26/17 10/26/17 23:59 07:59 15:59 Intake Total 1200 / 1200 1196 / 1196 262 / 262 Output Total 0 / 0 0 / 0 Balance 1200 / 1200 1196 / 1196 262 / 262 Intake: IV Fluids 900 / 900 1196 / 1196 142 / 142 0.9 % Sodium Chloride 1,000 ML 900 / 900 364 / 364 @ 35 mls/hr IVC .Q24H [facility] Rx#: [id number] Clinimix E 5%-15% SOLUTION 2, 582 / 582 142 / 142 000 ML @ 45 mls/hr IVC .Q24H [facility] with M.v.i. Adult 10 ml Rx# :[id number] Intralipid 20% 250 ML @ 21 mls/ 250 / 250 hr IVPB DAILY@1700 [facility] Rx#: [id number] Oral 300 / 300 0 / 0 120 / 120 Output: Urine 0 / 0 0 / 0 Other: Meal Breakfast Percent of Meal Consumed 100% Stool Size Moderate Stool Consistency loose liquid Stool Color Green # Urine Diapers 1 # Bowel Movements 0 # Bowel Movement Diapers 0 1 Weight 54.1 kg Blood Glucose* 93 94 VITAL SIGNS: Reviewed. See [facility] GENERAL: In no apparent distress. HEENT: Normocephalic, atraumatic, pupils are equal and reactive, extraocular motions intact, oropharynx is pink and moist, edentulous. CHEST/RESPIRATORY: The thorax is free from signs of trauma. Lung sounds: clear to auscultation, normal respiratory effort CARDIAC: Regular rate and rhythm. Normal S1 and S2, without murmurs, gallops, or rubs. VASCULAR: No Edema. 2+ peripheral pulses. ABDOMEN: soft, expected postoperative tenderness, active bowel sounds INCISION: Surgical incision is clean, dry, and intact. There are no signs of cellulitis or infection noted. MUSCULOSKELETAL: NEUROLOGIC EXAM: Alert and oriented x 3. Speech normal. Follows commands. PSYCHIATRIC: Mood normal. SKIN: No rash or lesions. - Hospital Course Hospital course: Ms. Ulloa is a 87 year old female who presented on 10/17/2017 for bowel prep for planned colonoscopy with tattoo of colon mass and robotic colon resection on 10/19/2017. Both procedures work completed as planned. On 10/19/2017 she underwent an open/laparoscopic assisted partial transverse (distal) colectomy by Dr. Gan. Her final pathology noted AJCC 8th edition pathologic stage: pT3 , pN0 (stage IIA). She is participating with PT/Ot and will need placement. She has been accepted at [facility]. we will begin d/c planning to [facility] a follow-up with Dr. Gan. - Time Spent with Patient Total time spent providing and/or coordinating discharge services: Greater than 30 minutes Specific discharge activities: ECF/SNF d/c planning. - Discharge Medications Prescriptions: Ondansetron ODT [Zofran ODT] 4 mg SL Q4HR PRN #15 tab.rapdis PRN Reason: Nausea And Vomiting Docusate [Colace] 100 mg PO BID PRN #30 capsule PRN Reason: Constipation HYDROcodone/Acet 7.5/325 mg [[place] 7.5-325 mg] 1 tab PO Q6H PRN 7 Days #28 tablet PRN Reason: Pain Home Medications: Carvedilol [Coreg] 25 mg PO BID 01/31/17 [History] Nitroglycerin [Nitrostat] 0.4 mg SL Q5M PRN 01/31/17 [History] Olmesartan Medoxomil [Benicar] 40 mg PO DAILY 01/31/17 [History] Rosuvastatin Calcium [Crestor] 10 mg PO DAILY 01/31/17 [History] Sertraline [Zoloft] 25 mg PO DAILY 01/31/17 [History] Dexlansoprazole [Dexilant] 60 mg PO DAILY 07/11/17 [History] LORazepam [Ativan] 0.5 mg PO TID PRN 07/11/17 [History] Levothyroxine Sodium [Levoxyl] 112 mcg PO DAILY 07/11/17 [History] Furosemide [Lasix] 40 mg PO DAILY 7 Days #7 tablet 07/16/17 [Rx] Ipratropium/Albuterol Neb [Duoneb] 3 ml IH Q6HR PRN 7 Days #28 vial.neb [Rx] Calcium Carbonate/Vitamin D3 [Calcium 500 + Vit D Caplet] 1 each PO BID #60 tablet 09/03/17 [Rx] Ergocalciferol (VITAMIN D2) [Vitamin D] 400 unit PO BID #60 tablet 09/03/17 [Rx] Docusate [Colace] 100 mg PO BID PRN #30 capsule 10/26/17 [Rx] HYDROcodone/Acet 7.5/325 mg [[place] 7.5-325 mg] 1 tab PO Q6H PRN 7 Days #28 tablet 10/26/17 [Rx] Ondansetron ODT [Zofran ODT] 4 mg SL Q4HR PRN #15 tab.rapdis 10/26/17 [Rx] Scopolamine Patch [Transderm-Scop] 1.5 mg TD Q72H patch.td72 10/26/17 [Rx] Allergies/Adverse Reactions: 3 Allergy/AdvReac Type Severity Reaction Status Date / Time codeine Allergy Rash Verified 01/30/17 16:16 Opioids - Morphine Analogues Allergy Rash Verified 01/30/17 16:16 Sulfa (Sulfonamide Allergy Rash Verified 01/30/17 16:16 Antibiotics) cephalexin AdvReac Nausea Verified 09/03/17 13:13 Date of admission: 10/17/17 14:37 Primary care physician: Rocael Pelletier MD Consults: 10/19/17 18:36 Consult to Occupational Therapy [CONS] Routine Comment: Evaluate, develop and implement POC Reason for Consult: patient needs rehab Does patient have active BEDREST order?: No Is patient medically & hemodynamically stable?: Yes Patient assessed for mobility or mobilized this visit?: Yes Consult to Physical Therapy [CONS] Routine Comment: Evaluate, develop and implement POC Reason for Consult: patient needs rehab Does patient have active BEDREST order?: No Is patient medically & hemodynamically stable?: Yes Consult to Corrections Officer [CONS] Routine Reason for SW Consult: patient will need rehab as outpatient, is 87 and lives alone, daughter works at [employer] and would her to go to [employer] [facility]hab 10/20/17 08:52 Consult to Cardiology [CONS] Routine Comment: Consulting Provider: Cardiology Yeni Reason for Consult: hypertension Time Notified: 08:52 Call Completed: Yes 10/22/17 08:37 Consult to Invasive Line Access Team [CONS] Routine Reason for Consult: Picc Line Insertion Line Type: PICC PICC line indications: Parental nutrition consult to rcp [Consult to Nutrition] [CONS] Routine Comment: Consulting Provider: NUTRITION Reason for Dietary Consult: TPN Start and Manage 10/22/17 08:44 Consult to Respiratory Therapy [CONS] Routine Reason for Consult: Aggressive pulmonary toileting Time Notified: 08:45 Call Completed: No Discharging clinician: Keysha Oquendo) Anticipated date of discharge: 10/26/17 Labs on day of discharge: Labs from last 24 hours 10/26/17 10/26/17 10/26/17 05:54 03:44 03:44 WBC 6.8 RBC 4.34 Hgb 12.6 Hct 38.4 MCV 88.5 MCH 29.0 MCHC 32.8 RDW 14.9 H Plt Count 126 L MPV 10.2 Immature Gran % 0.7 Seg Neutrophils % 66.9 Lymphocytes % 14.6 Monocytes % 7.6 Eosinophils % 9.6 Basophils % 0.6 Neutrophils # 4.6 Lymphocytes # 1.0 Monocytes # 0.5 Eosinophils # 0.7 H Basophils # 0.0 Sodium 140 Potassium 4.0 Chloride 109 H Carbon Dioxide 28 BUN 14 Creatinine 0.62 Est GFR ( Amer) > 60 Est GFR (Non-Af Amer) > 60 BUN/Creatinine Ratio 23 Glucose 95 POC Glucose 94 Calculated Osmolality 290 Calcium 8.7 Phosphorus 2.4 L Magnesium 1.8 10/25/17 10/25/17 10/25/17 16:21 11:10 04:13 WBC RBC Hgb Hct MCV MCH MCHC RDW Plt Count MPV Immature Gran % Seg Neutrophils % Lymphocytes % Monocytes % Eosinophils % Basophils % Neutrophils # Lymphocytes # Monocytes # Eosinophils # Basophils # Sodium Potassium Chloride Carbon Dioxide BUN Creatinine Est GFR ( Amer) Est GFR (Non-Af Amer) BUN/Creatinine Ratio Glucose POC Glucose 110 H 117 H 92 Calculated Osmolality Calcium Phosphorus Magnesium 10/25/17 10/24/17 10/24/17 00:02 16:12 11:32 WBC RBC Hgb Hct MCV MCH MCHC RDW Plt Count MPV Immature Gran % Seg Neutrophils % Lymphocytes % Monocytes % Eosinophils % Basophils % Neutrophils # Lymphocytes # Monocytes # Eosinophils # Basophils # Sodium Potassium Chloride Carbon Dioxide BUN Creatinine Est GFR ( Amer) Est GFR (Non-Af Amer) BUN/Creatinine Ratio Glucose POC Glucose 99 109 H 112 H Calculated Osmolality Calcium Phosphorus Magnesium 10/24/17 07:55 WBC RBC Hgb Hct MCV MCH MCHC RDW Plt Count MPV Immature Gran % Seg Neutrophils % Lymphocytes % Monocytes % Eosinophils % Basophils % Neutrophils # Lymphocytes # Monocytes # Eosinophils # Basophils # Sodium Potassium Chloride Carbon Dioxide BUN Creatinine Est GFR ( Amer) Est GFR (Non-Af Amer) BUN/Creatinine Ratio Glucose POC Glucose 120 H Calculated Osmolality Calcium Phosphorus Magnesium - Impressions ITS Impressions KUB X-Ray 10/18/17 10:54 IMPRESSION: Unremarkable KUB. D/ / Manuel Atwood / Manuel Atwood Interpreting Provider: Manuel Atwood Abdomen/Pelvis CT 10/18/17 13:30 IMPRESSION: 1. Small focus of extraluminal gas anterior to the left hepatic lobe. Given the history of recent colonoscopy this is suspicious for micro perforation. Small volume of free fluid. 2. 17 mm linear metallic foreign body within the distal transverse colon. Recommend correlation with colonoscopy. 3. Decompressed colon with mild pericolonic stranding and possible wall thickening raising the possibility of colitis. 4. Colonic diverticulosis without evidence of acute diverticulitis. 5. Moderate L2 and mild L4 vertebral body compression fractures age-indeterminate but new from 07/15/2017. If clinically indicated further evaluation could be obtained with MRI. 6. Trace bilateral pleural effusions. The findings were sent to the Radiology Results Communication Center at 3:18 pm on 10/18/2017to be communicated to a licensed caregiver. D/ / Marco Kumar MD / Marco Kumar MD Interpreting Provider: Marco Kumar MD X-Ray 10/19/17 07:28 IMPRESSION: 1. Nonspecific nonobstructive bowel gas pattern with no pneumoperitoneum seen. D/ / Amor Gong MD / Amor Gong MD Interpreting Provider: Amor Gong MD - Patient Status Disposition: Transfer Inpatient Rehab Fac Condition: Fair Functional capacity at discharge: independent ambulation Overall status at discharge: patient is progressing back to baseline - Discharge Instructions Instructions: Colectomy (DC) Follow Up With: Keysha Gan MD [Partnered Physician] - 11/04/17 10:35 am Rocael Pelletier MD [Primary Care Provider] - Additional Instructions: General Surgical Discharge Instructions 1. No pushing, pulling, or lifting greater than 15 lbs for 4 weeks (depending upon procedure). 2. You may shower beginning today, but no tub baths, soaking, or swimming for 2 weeks. 3. Pain medication per [facility] 5. Take stool softeners (Colace) or a water based laxative (Miralax) while taking narcotics. You may hold for loose stools. 6. Report any fevers greater than 100.5F, increase abdominal discomfort, drainage that looks like pus, increased redness or pain at the surgical site, or any vomiting. 7. Report any pain in the calves, shortness of breath, or rapid heartbeat. 8. Follow-up in the office as directed. - Diet and Activity Activity: as per physical therapy Diet: other (soft diet and dietary supplement)
--- NOTE | 2017-10-26 10:55 | Physician Discharge Referral ---
ExtendedCare Referral Info Transfer To: [facility] Provider in Charge: Dr. 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 machine) Institutional Level of Care: Intermediate - Diagnosis (1) Colon cancer Priority: Primary Status: Acute (2) HTN (hypertension) Priority: Secondary Status: Chronic (3) Atrial fibrillation Priority: Secondary Status: Chronic (4) Hypothyroidism Priority: Secondary Status: Chronic (5) Protein-calorie malnutrition, moderate Priority: Secondary Status: Chronic (6) Pleural effusion, bilateral Priority: Secondary Status: Chronic Prognosis: Fair Aware of Diagnosis: Patient Aware of Prognosis: Patient - Transfer Medications Prescriptions: Ondansetron ODT [Zofran ODT] 4 mg SL Q4HR PRN #15 tab.rapdis PRN Reason: Nausea And Vomiting Docusate [Colace] 100 mg PO BID PRN #30 capsule PRN Reason: Constipation HYDROcodone/Acet 7.5/325 mg [[place] 7.5-325 mg] 1 tab PO Q6H PRN 7 Days #28 tablet PRN Reason: Pain Home Medications: Carvedilol [Coreg] 25 mg PO BID 01/31/17 [History] Nitroglycerin [Nitrostat] 0.4 mg SL Q5M PRN 01/31/17 [History] Olmesartan Medoxomil [Benicar] 40 mg PO DAILY 01/31/17 [History] Rosuvastatin Calcium [Crestor] 10 mg PO DAILY 01/31/17 [History] Sertraline [Zoloft] 25 mg PO DAILY 01/31/17 [History] Dexlansoprazole [Dexilant] 60 mg PO DAILY 07/11/17 [History] LORazepam [Ativan] 0.5 mg PO TID PRN 07/11/17 [History] Levothyroxine Sodium [Levoxyl] 112 mcg PO DAILY 07/11/17 [History] Furosemide [Lasix] 40 mg PO DAILY 7 Days #7 tablet 07/16/17 [Rx] Ipratropium/Albuterol Neb [Duoneb] 3 ml IH Q6HR PRN 7 Days #28 vial.neb [Rx] Calcium Carbonate/Vitamin D3 [Calcium 500 + Vit D Caplet] 1 each PO BID #60 tablet 09/03/17 [Rx] Ergocalciferol (VITAMIN D2) [Vitamin D] 400 unit PO BID #60 tablet 09/03/17 [Rx] Docusate [Colace] 100 mg PO BID PRN #30 capsule 10/26/17 [Rx] HYDROcodone/Acet 7.5/325 mg [[place] 7.5-325 mg] 1 tab PO Q6H PRN 7 Days #28 tablet 10/26/17 [Rx] Ondansetron ODT [Zofran ODT] 4 mg SL Q4HR PRN #15 tab.rapdis 10/26/17 [Rx] Scopolamine Patch [Transderm-Scop] 1.5 mg TD Q72H patch.td72 10/26/17 [Rx] Allergies/Adverse Reactions: 3 Allergy/AdvReac Type Severity Reaction Status Date / Time codeine Allergy Rash Verified 01/30/17 16:16 Opioids - Morphine Analogues Allergy Rash Verified 01/30/17 16:16 Sulfa (Sulfonamide Allergy Rash Verified 01/30/17 16:16 Antibiotics) cephalexin AdvReac Nausea Verified 09/03/17 13:13 - Respiratory Orders Smoking Cessation: Smoking cessation has been advised. For more information, call the [place] Tobacco Quit Line at 1-882-MXJZ-NOW. - Ancillary Orders May use pressure relief devices daily prn, May go on MONIQUE w/family/respon alliance party w /meds at nurse discretion PRN - Advance Directives Living Will: No Power of Embossing Calender Operator: No Code Status: Full Code - Mobility Orders Other (Per PT/OT) - Rehabiliation Orders Rehab Potential: Fair Rehab Orders: ROM Exercises, Evaluation for Physical Therapy, Evaluation for Occupational Therapy, Evaluation for Speech Therapy - Treatments Skin tear care topically daily PRN per policy, May check for fecal impaction rectally daily PRN, Fleet enema rectally every other day PRN cleansing purposes List/Other: General Surgical Discharge Instructions 1. No pushing, pulling, or lifting greater than 15 lbs for 4 weeks (depending upon procedure). 2. You may shower beginning today, but no tub baths, soaking, or swimming for 2 weeks. 3. Pain medication per [facility] 4. Take stool softeners (Colace) or a water based laxative (Miralax) while taking narcotics. You may hold for loose stools. 5. Report any fevers greater than 100.5F, increase abdominal discomfort, drainage that looks like pus, increased redness or pain at the surgical site, or any vomiting. 6. Report any pain in the calves, shortness of breath, or rapid heartbeat. 7. Follow-up in the office as directed. - Diet Orders Mechanical Soft House Supplement per Dietary: Ensure or Boost TID CERTIFICATION: I certify that the transfer of the above named patient to an Extended Care Facility is necessary for the continuing treatment of the diagnosis listed. The above information is true and accurate reflection of patient's current condition. Confidential - Redisclosure prohibited without a patient's written consent.
== END 2017-10-26 13:26 | DRG 330 ==
LOC: 3ANU
PROVIDERS: ADMIT Surgery; ATTEND Surgery